=== PATIENT | female | born 1970 | race Caucasian/White ===

== ENCOUNTER 2020-04-22 08:15 | Outpatient (REF) | payer OTHER, SELFPAY ==
--- NOTE | 2020-04-22 | MM_ITS ---
EXAMINATION: MM SCREENING DIGITAL BREAST TOMOSYNTHESIS, BILATERAL CLINICAL INFORMATION: Screening. Asymptomatic. The lifetime risk of breast cancer based on the Tyrer-Cuzick Model is 8%. COMPARISON: Mammography: 03/07/2018, 01/03/2017, 01/05/2016 TECHNIQUE: Digital breast tomosynthesis is performed in both the craniocaudal and mediolateral oblique views along with computer-aided detection (CAD). Synthesized 2D images are generated from the tomosynthesis. Technologist notes technically challenging exam. Study tailored to patient capabilities particularly for the MLO views. FINDINGS: There are scattered areas of fibroglandular density (ACR BI-RADS breast composition Category b). There are no significant masses, abnormal calcifications, or other abnormalities. No developing density. No significant changes. MM/MM tomosynthesis screening BI IMPRESSION: No mammographic evidence of malignancy. ASSESSMENT: BI-RADS 1: Negative RECOMMENDATION: Routine annual mammography screening. This patient's information was entered into a reminder system with a target due date for their next mammogram.
[2020-04-22 11:05] LABS: Estimated Average Glucose 146 mg/dL; Hemoglobin A1c % 6.7 %
[2020-04-22 11:26] LABS: Alanine Aminotransferase 25 U/L (0-31); Albumin Level 3.9 g/dL (3.5-5.0); Alkaline Phosphatase 85 U/L (39-117); Aspartate Amino Transferase 12 U/L (5-31); Bilirubin Direct < 0.2 mg/dL (0.0-0.5); Bilirubin Total 0.4 mg/dL (0.0-1.0); Glucose Random 134 mg/dL (60-115); Total Protein 6.7 g/dL (6.5-8.0)
== END 2020-04-22 08:16 | disposition home or self-care (01) ==
LOC: HO.MAMMO 08:15
PROVIDERS: PCP Nurse Practitioner Family; Visit Provider Nurse Practitioner Family
DX: R73.03 Prediabetes (principal); Z71.89 Other specified counseling
CPT/HCPCS: 77063; 77067; 80076; 82947; 83036

== ENCOUNTER 2021-10-06 12:16 | Outpatient (REF) | payer MEDICAID, SELFPAY ==
--- NOTE | ~2021-10-06 | XR_ITS ---
EXAMINATION: XR FOOT, LEFT CLINICAL INFORMATION: Pain left foot COMPARISON: Radiographs left foot 11/09/2016. TECHNIQUE: AP, lateral, and oblique views of the left foot. FINDINGS: No acute or healing fracture, dislocation, destructive process. Normal bony mineralization. There are moderate posterior and plantar calcaneal spurs. Retrocalcaneal recess is preserved. Subtalar joint unremarkable. Midfoot shows no joint narrowing or erosive change. There is a borderline exostosis medial side distal second metatarsal shaft. There is a borderline hallux valgus of just over 16 degrees, stable. No significant joint narrowing MTP or interphalangeal joints. No erosive changes. XR/XR foot LT min 3V IMPRESSION: -No fracture or destructive process or erosive arthropathy. -Moderate posterior and plantar calcaneal spurs. -Borderline hallux valgus.
== END 2021-10-06 12:17 | disposition home or self-care (01) ==
LOC: HO.XRAY 12:16
PROVIDERS: PCP Internal Medicine; Visit Provider Nurse Practitioner
DX: M79.672 Pain in left foot (principal)
CPT/HCPCS: 73630

== ENCOUNTER → 2022-03-28 08:50 | Outpatient (BNVA) | payer MEDICAID, SELFPAY | PROVIDERS: PCP Internal Medicine; Visit Provider Nurse Practitioner Family | DX: Z12.11 Encounter for screening for malignant neoplasm of colon (principal); K21.9 Gastro-esophageal reflux disease without esophagitis | CPT/HCPCS: 99202 ==

== ENCOUNTER 2022-10-09 07:03 | Day surgery (SDC) | payer MEDICAID, SELFPAY ==
--- NOTE | 2022-10-05 13:16 | HO.ANESPROP2 ---
Documented by User: Etta Mcintyre NP 10/05/22 13:17 HPI - Anesthesia Eval Consult details Narrative: 52yo F for Upper Endoscopy and Colonoscopy [facility] Past Medical History Medical History (Updated 10/09/22 @ 07:10 by Marilyn Nixon, AARON) Asthma Bipolar affective disorder Chronic GERD Diabetes type 2, controlled Osteoarthritis of lower back Family History Family History (Updated 03/28/22 @ 09:36 by Carlyle Hurtado) Father HTN (hypertension) High cholesterol Paternal Uncle Heart disease Paternal Aunt Heart disease Surgical History Surgical History (Updated 10/09/22 @ 07:14 by Marilyn Nixon RN) History of repair of left rotator cuff S/P biopsy of cervix Social History Social History (Updated 03/28/22 @ 09:34 by Carlyle Hurtado) Household Members: Family Alcohol intake: current Tobacco use type: Cigarette Cigarette Packs Per Day: 0.5 Cigarettes Per Day: 10 Years Smoked: 30 Advance Directives: No Advance Directives Information Provided: Yes Meds Allergies Allergy/AdvReac Type Severity Reaction Status Date / Time cinnamon Allergy Severe Diarrhea Verified 10/03/22 14:13 Penicillins [PCN] Allergy Intermediate NAUSEA,SEVERE Verified 10/03/22 14:13 DIARRHEA, VOMITTING latex [LATEX] Allergy Unknown RASH Verified 10/03/22 14:13 amoxicillin AdvReac Unknown GI symptoms Verified 10/03/22 14:13 anything ending in cillin Allergy Unknown Unknown Uncoded 10/03/22 14:13 PICKLES Allergy Unknown RASH Uncoded 10/03/22 14:13 SEAFOOD Allergy Unknown SWELLING Uncoded 10/03/22 14:13 Home Medications Medication Instructions Recorded Confirmed Last Taken Type albuterol sulfate 90 mcg/actuation 2 puff inhalation QID PRN Wheezing 03/28/22 10/03/22 Unknown History aerosol inhaler (ProAir HFA) alcohol swabs (Alcohol Prep Pads) pad topical diabetes mellitus 03/28/22 Unknown History blood sugar diagnostic (Shanelle #10 ea 03/28/22 Unknown History Lite Strips) diclofenac sodium 1 % topical gel 2 g topical QID 03/28/22 10/03/22 Unknown History epinephrine 0.3 mg/0.3 mL 0.3 ml IM PRN Allergic Reaction 03/28/22 Unknown History injection, auto-injector hydroxyzine HCl 10 mg tablet 10 - 20 mg PO Q6H PRN anxiety 03/28/22 Unknown History ibuprofen 800 mg tablet 800 mg PO TID PRN Pain 03/28/22 10/03/22 Unknown History lancets 28 gauge (FreeStyle #100 ea 03/28/22 Unknown History Lancets) metformin 500 mg tablet 500 mg PO 03/28/22 Unknown History pantoprazole 40 mg tablet,delayed 40 mg PO QAM 03/28/22 10/03/22 Unknown History release lisinopril 5 mg tablet 5 mg PO DAILY 10/09/22 10/09/22 Unknown History loratadine 10 mg tablet 10 mg PO DAILY PRN Allergy Symptoms 10/09/22 10/09/22 Unknown History Exam Exam Date and Time: October 05, 2022 1316 Assessment and Plan Assessment Anesthesia Assessment: Chart Reviewed Documented by User: Juan Doran MD 10/09/22 07:19 [facility] Past Medical History Medical History (Updated 10/09/22 @ 07:10 by Marilyn Nixon RN) Asthma Bipolar affective disorder Chronic GERD Diabetes type 2, controlled Osteoarthritis of lower back Family History Family History (Updated 03/28/22 @ 09:36 by Carlyle Hurtado) Father HTN (hypertension) High cholesterol Paternal Uncle Heart disease Paternal Aunt Heart disease Family history of problems with anesthesia: No Surgical History Surgical History (Updated 10/09/22 @ 07:14 by Marilyn Nixon RN) History of repair of left rotator cuff S/P biopsy of cervix History of Problems with Anesthesia: No Social History Social History (Updated 03/28/22 @ 09:34 by Carlyle Hurtado) Household Members: Family Alcohol intake: current Tobacco use type: Cigarette Cigarette Packs Per Day: 0.5 Cigarettes Per Day: 10 Years Smoked: 30 Advance Directives: No Advance Directives Information Provided: Yes Meds Allergies Allergy/AdvReac Type Severity Reaction Status Date / Time cinnamon Allergy Severe Diarrhea Verified 10/03/22 14:13 Penicillins [PCN] Allergy Intermediate NAUSEA,SEVERE Verified 10/03/22 14:13 DIARRHEA, VOMITTING latex [LATEX] Allergy Unknown RASH Verified 10/03/22 14:13 amoxicillin AdvReac Unknown GI symptoms Verified 10/03/22 14:13 anything ending in cillin Allergy Unknown Unknown Uncoded 10/03/22 14:13 PICKLES Allergy Unknown RASH Uncoded 10/03/22 14:13 SEAFOOD Allergy Unknown SWELLING Uncoded 10/03/22 14:13 Home Medications Medication Instructions Recorded Confirmed Last Taken Type albuterol sulfate 90 mcg/actuation 2 puff inhalation QID PRN Wheezing 03/28/22 10/03/22 Unknown History aerosol inhaler (ProAir HFA) alcohol swabs (Alcohol Prep Pads) pad topical diabetes mellitus 03/28/22 Unknown History blood sugar diagnostic (FreeStyle #10 ea 03/28/22 Unknown History Lite Strips) diclofenac sodium 1 % topical gel 2 g topical QID 03/28/22 10/03/22 Unknown History epinephrine 0.3 mg/0.3 mL 0.3 ml IM PRN Allergic Reaction 03/28/22 Unknown History injection, auto-injector hydroxyzine HCl 10 mg tablet 10 - 20 mg PO Q6H PRN anxiety 03/28/22 Unknown History ibuprofen 800 mg tablet 800 mg PO TID PRN Pain 03/28/22 10/03/22 Unknown History lancets 28 gauge (FreeStyle #100 ea 03/28/22 Unknown History Lancets) metformin 500 mg tablet 500 mg PO 03/28/22 Unknown History pantoprazole 40 mg tablet,delayed 40 mg PO QAM 03/28/22 10/03/22 Unknown History release lisinopril 5 mg tablet 5 mg PO DAILY 10/09/22 10/09/22 Unknown History loratadine 10 mg tablet 10 mg PO DAILY PRN Allergy Symptoms 10/09/22 10/09/22 Unknown History Exam Airway Mallampati Class: II Neck ROM: Limited Heart: rrr Lungs: cta Assessment and Plan Assessment Anesthesia Assessment: Anesthesia Plan Discussed Final Anesthetic Review Family History of Problems with Anesthesia: No History of Problems with Anesthesia: No NPO: Yes ASA Class: III Final Preanesthetic Review: No Changes in Pt Med Stat, Meds/Allgs Chart Reviewed, Consent Obtained/Reviewed and Anes Risks/Benef Reviewed Patient Risk: Intermediate Procedure Risk: Intermediate Anesthetic Plan Anesthetic Plan: MAC: and Agree w/ Assess. and Plan Disposition: Standard PACU
[2022-10-09 07:14] VITALS: BMI 28.0
[2022-10-09 07:40] VITALS: BP 145/83; PULSE 66; RESP 15; TEMP 36.3; O2SAT 99
[2022-10-09] MEDS: Lactated Ringers 1,000 ML 100 ML IVCONT (07:44)
[2022-10-09 07:53] LABS: Glucose, Whole Blood 108 mg/dL (60-115)
--- NOTE | 2022-10-09 08:31 | P.HPSUR_ITS ---
Pre-Procedural Eval Section A Date of Service: 10/09/22 Section B Chief Complaint: reflux disease,screening Details of Present Illness: on chronic ibuprofen for joint pains for years Relevant Family History (Specify if Yes): No Relevant Social History: Tobacco Use Present Medications: see Short Stay Collaborative assessment Medical History: Significant History (Asthma Bipolar affective disorder Chronic GERD Diabetes type 2, controlled Osteoarthritis of lower back) History of Previous Operations: Relevant previous surgery/procedure and date(s) (History of repair of left rotator cuff Hx of shoulder surgery S/P biopsy of cervix) Allergies: Allergies Allergy/AdvReac Type Severity Reaction Status Date / Time cinnamon Allergy Severe Diarrhea Verified 10/03/22 14:13 Penicillins [PCN] Allergy Intermediate NAUSEA,SEVERE Verified 10/03/22 14:13 DIARRHEA, VOMITTING latex [LATEX] Allergy Unknown RASH Verified 10/03/22 14:13 amoxicillin AdvReac Unknown GI symptoms Verified 10/03/22 14:13 anything ending in cillin Allergy Unknown Unknown Uncoded 10/03/22 14:13 PICKLES Allergy Unknown RASH Uncoded 10/03/22 14:13 SEAFOOD Allergy Unknown SWELLING Uncoded 10/03/22 14:13 Review of Systems Sugical H&P ROS: Negative: Constitution, Cardiovascular, Respiratory, Neurological, Psychiatric, Hem-Onc, Allergic/Immunologic, Gastrointestinal, Genitourinary, Musculoskeletal, Integumentary, Endocrine and Eyes/Ears/Nose/ Throat Exam Surgical H&P Exam: Normal: HEENT, Normal: Heart, Normal: Lungs, Normal: Extremities, Normal: Abdomen, Normal: Skin and Normal: Neurological Plan Diagnosis/Plan: Unchanged I have reviewed the history and physical and performed a pertinent physical examination on my patient. No changes have occurred unless specified. Time Spent With Patient Time: Total time managing care of this patient today ____ minutes.
--- NOTE | 2022-10-09 08:32 | P.OP_ITS ---
Operative Note Operative Note Date of Service: 10/09/22 Narrative: Operative Information Procedure Description: EGD, Colonoscopy Indication: abdominal pain and screening colonoscopy Anesthesia: MAC FLEXIBLE TRANSORAL UPPER GASTROINTESTINAL ENDOSCOPY AND COLONOSCOPY PROCEDURE NOTE UPPER ENDOSCOPY Consent: Indications for the procedure and potential complications of bleeding, perforation, reaction to medications and missed diagnosis were discussed with the patient and informed consent was obtained. Instrument: Olympus GIF H 190 J mid size upper endoscope Monitoring: Vital signs and clinical assessment, continuous EKG monitoring, Pulse oximetry, Carbon Dioxide monitoring and blood pressure monitoring were done throughout the procedure. Procedure: The patient was placed in the left lateral decubitis position and pre-procedure medications were administered and a bite block was placed. The endoscope was inserted into the mouth and advanced under direct vision to the third part of duodenum. A careful inspection was made as the upper endoscope was withdrawn including a retroflexed examination of the proximal stomach; Findings and interventions are described below. Findings: Larynx:normal Esophagus: GE junction at 36 cm, diaphragm hiatus at 36 cm, schatzki ring noted with lax LES, some swelling and erythema at GEJ so bx taken from here and distal esophagus Stomach: Erythema at antrum with shallow ulcer and surrounding edema 7-8 mm. Biopsies were obtained. Grade 3 flap valve on retroflexed examination of the cardia. Duodenum: Mild erythema, bx taken Intervention: Biopsies as noted above COLONOSCOPY Instrument: Olympus variable stiffness pediatric scope 190L Colonoscopy Monitoring: Vital signs and clinical assessment, continuous EKG monitoring, Pulse oximetry, Carbon Dioxide monitoring and blood pressure monitoring were done throughout the procedure. Colon withdrawal time was 10 minutes. Procedure: The patient was placed in the left lateral decubitis position and pre-procedure medications were administered. After a digital rectal examination of the ano-rectum, the video colonoscope was inserted into the rectum and advanced through the colon to the cecum/TI. The colonoscope was slowly withdrawn in a retrograde panoramic fashion and the colon mucosa was carefully examined including a retroflexed view of the rectum. Findings and interventions are described below. Procedure Difficulty: moderate, pressure applied Findings: Terminal Ileum-normal Cecum:normal Ascending Colon: normal Transverse Colon -normal Descending Colon:normal Sigmoid Colon: normal Rectum: Retroflexion with small internal hemorrhoids, grade II Anorectum - normal Colon preparation: [place] Bowel Preparation Scale Right colon; 3 Transverse colon: 2 Left colon; 3 (0 = Unprepared colon segment with mucosa not seen due to solid stool that cannot be cleared. 1 = Portion of mucosa of the colon segment seen, but other areas of the colon segment not well seen due to staining, residual stool and/or opaque liquid. 2 = Minor amount of residual staining, small fragments of stool and/or opaque liquid, but mucosa of colon segment seen well. 3 = Entire mucosa of colon segment seen well with no residual staining, small fragments of stool or opaque liquid) Impression and Post Procedure Diagnosis: Endoscopy Findings: schatzki ring gastric ulcer duodenitis lax LES Colonoscopy Findings: internal hemorrhoids Plan: Await Pathology results Repeat Colonoscopy in 10 years or earlier if clinically indicated High fiber diet leaflet avoid straining at stool, epsom salts and sitz bath, anusol supps or cream smoking cessation, consider alternatives to NSAId e.g tylenol or celebrex, arthrotec Above findings were reviewed with the patient and relevant handouts were provided if indicated.
[2022-10-09 09:13] VITALS: BP 109/64; PULSE 65; RESP 16; TEMP 36.6; O2SAT 98
[2022-10-09 09:28] VITALS: BP 150/78; PULSE 58; RESP 16; O2SAT 100
[2022-10-09 09:43] VITALS: BP 133/70; PULSE 55; RESP 18; TEMP 36.6; O2SAT 99
== END 2022-10-09 10:17 | disposition home or self-care (01) ==
PROVIDERS: PCP Internal Medicine; Visit Provider Internal Medicine Gastroenterology
PROC: (CPT 45378; principal; 2022-10-09 08:30)
DX: Z12.11 Encounter for screening for malignant neoplasm of colon (principal); K64.1 Second degree hemorrhoids; K21.9 Gastro-esophageal reflux disease without esophagitis; R10.9 Unspecified abdominal pain; K25.9 Gastric ulcer, unspecified as acute or chronic, without hemorrhage or perforation; K22.2 Esophageal obstruction; K22.4 Dyskinesia of esophagus; K29.80 Duodenitis without bleeding; K44.9 Diaphragmatic hernia without obstruction or gangrene; E11.9 Type 2 diabetes mellitus without complications; M47.896 Other spondylosis, lumbar region; M15.9 Polyosteoarthritis, unspecified; J45.909 Unspecified asthma, uncomplicated; F31.89 Other bipolar disorder; Z79.899 Other long term (current) drug therapy; Z79.84 Long term (current) use of oral hypoglycemic drugs; Z79.1 Long term (current) use of non-steroidal anti-inflammatories (NSAID); Z88.0 Allergy status to penicillin; Z88.1 Allergy status to other antibiotic agents; Z91.040 Latex allergy status; F17.210 Nicotine dependence, cigarettes, uncomplicated
CPT/HCPCS: 45378; 43239; 82947; 88305; 88342

== ENCOUNTER 2022-10-23 13:26 | Outpatient (REF) | payer MEDICAID, SELFPAY ==
[2022-10-25 09:19] LABS: Transglutaminase Ab IgG <1.0 U/mL; Transglutaminase IgA <1.0 U/mL
== END 2022-10-23 13:27 | disposition home or self-care (01) ==
LOC: CF 13:26
PROVIDERS: PCP Internal Medicine; Visit Provider Nurse Practitioner Family
DX: R10.9 Unspecified abdominal pain (principal); K29.80 Duodenitis without bleeding; K21.9 Gastro-esophageal reflux disease without esophagitis
CPT/HCPCS: 36415; 86003; 86364; 99212

== ENCOUNTER 2023-04-30 13:36 | Outpatient (AMB) | payer MEDICAID, SELFPAY ==
[2023-04-30 13:44] VITALS: BP 118/81; PULSE 92; BMI 29.6
--- NOTE | 2023-04-30 13:44 | MHC.OFFVIS ---
Intake Vital Signs 04/30/23 13:44 Height 5 ft 1 in Weight 156 lb 8.451 oz BMI 29.6 BP 118/81 Blood Pressure Location Lt brachial Position Sitting Pulse 92 Intake Visit Reasons: 6 mnth f/u Intake Note: Blanca presents in the office as a 6 month follow up. CC: She states that she needs refill on Carafate medication. Footwear Sales Associate Required: No Allergies latex [LATEX] Allergy (Unknown, Verified 04/30/23 13:47) Rash seafood Allergy (Verified 04/30/23 13:47) Swelling cinnamon Adverse Reaction (Severe, Verified 04/30/23 13:47) Diarrhea Penicillins [PCN] Adverse Reaction (Severe, Verified 04/30/23 13:47) nausea, severe diarrhea, vomiting amoxicillin Adverse Reaction (Unknown, Verified 04/30/23 13:47) GI symptoms anything ending in cillin Allergy (Unknown, Uncoded 04/30/23 13:47) Unknown PICKLES Allergy (Unknown, Uncoded 04/30/23 13:47) Rash HPI 6 mnth f/u HPI Details LAST VISIT Duodenitis Diagnosed with duodenitis on upper endoscopy. Patient can start taking sucralfate. Discussed with patient avoiding dietary triggers. Encourage patient to stop taking ibuprofen and tried other pain medication. Patient will talk to her PCP GERD (gastroesophageal reflux disease) Discussed with patient avoiding dietary triggers and that is not crit upper endoscopy results discussed with patient. Patient will try to talk to her PCP about changing ibuprofen to Celebrex or Arthrotec. Will do RAST allergen test and check transglutaminase. Will put patient on sucralfate at bedtime. She can continue pantoprazole. I will see patient in 6 months, sooner on as needed basis. Patient is agreeable to this plan and verbalizes understanding of instructions. She was given the opportunity to ask questions and all questions answered. ? Thank you for allowing me to participate in her care Plan Orders Orders Rast Allergen Today K21.9 - Gastro-esophageal reflux disease without esophagitis Transglutaminase IgA Today R10.9 - Unspecified abdominal pain Transglutaminase Ab IgG Today R10.9 - Unspecified abdominal pain Medications New sucralfate 1 g PO BEDTIME 30 tabs 1RF R19.7 - Diarrhea, unspecified Discontinued famotidine (Pepcid) Discontinued Reason: Doctor's Order 20 mg PO BEDTIME 30 tabs 3RF K21.9 - Gastro-esophageal reflux disease without esophagitis TODAY'S VISIT: Patient is here today for follow-up. Patient states that she ran out of sucralfate. Reports that she has been feeling better, however she continues to have epigastric discomfort occasionally. Patient denies eating late at night. Patient is avoiding food that is spicy or fried. Patient reports that she is allergic to multiple different food and would like to see software tools engineer. Rest allergen test shows allergy to shrimp, however this is not a true allergy test. Patient was diagnosed with duodenitis on endoscopy in September. Patient was on pantoprazole, however states that it was not working for her very well. Patient also ran out of the medication. Patient denies any dyspepsia, dysphagia or odynophagia. Denies any melena, hematochezia, unintentional weight loss or ribbon like stools. [facility] Medical History Duodenitis HTN (hypertension) Diabetes type 2, controlled Bipolar affective disorder Asthma Chronic GERD Osteoarthritis of lower back Surgical History History of esophagogastroduodenoscopy (EGD) Hx of colonoscopy S/P biopsy of cervix History of repair of left rotator cuff Family History Father HTN (hypertension) High cholesterol Paternal Uncle Heart disease Paternal Aunt Heart disease Social History Household Members: Family Alcohol intake: current Alcohol intake frequency: holidays/special occasions only Patient Tobacco Use Status: Current everyday Tobacco user Tobacco use type: Cigarette Cigarette Packs Per Day: 0.5 Cigarettes Per Day: 5 Years Smoked: 30 Review of Systems Const Denies weight gain and Denies weight loss ENT Reports no additional complaints, Denies dysphagia and Denies odynophagia Card Reports no additional complaints Resp Reports no additional complaints GI Denies abdominal pain, Denies belching, Denies melena, Denies bloating, Denies change in bowel habits, Denies dysphagia, Denies excessive flatus, Reports dyspepsia, Reports heartburn, Denies diarrhea, Denies loose stools, Denies nausea, Denies odynophagia and Denies vomiting Reports no additional complaints Musc Reports no additional complaints Neuro Reports no additional complaints Psych Reports no additional complaints Endo Reports no additional complaints Physical Exam Vital Signs: Last Vital Signs Pulse 92 04/30/23 13:44 BP 118/81 04/30/23 13:44 BMI result Body Mass Index 29.6 Const General: healthy appearing, no acute distress and well developed Nutritional Appearance: well nourished Orientation/consciousness: patient oriented x3 HEENT Head: Yes normal to inspection, Yes normocephalic and Yes atraumatic Face and sinus: Yes normal facial exam Mouth: Normal oral and palatal mucosa present Throat: Yes posterior oropharynx normal, Yes tonsils normal and Yes uvula midline Eyes General: appearance normal, both eyes and all related structures Neck Neck: Yes normal visual inspection, Yes full ROM and Yes trachea midline Thyroid: Thyroid normal Resp Effort & Inspection: normal respiratory effort, able to speak in complete sentences, no tracheal deviation and symmetric chest movement Auscultation: clear to auscultation bilaterally Cardio Rate: regular rate GI Inspection: Yes normal to inspection and No distended Palpation (GI): Soft to palpation, not firm, nontender and No hepatosplenomegaly present Auscultation: normal bowel sounds General: Yes no CVA tenderness Back/Spine/Pelvis Back: no CVA tenderness Skin General skin exam: elasticity normal, turgor normal and dry skin Neuro General: patient oriented x3 Psych Appearance: grossly normal Mental Status: mental status grossly normal Affect: normal affect Results Reviewed Results Reviewed: Laboratory Tests 10/23/22 14:36 Tiss Transglutamin IgG <1.0 Tiss Transglutamin IgA <1.0 Assessment & Plan Assessment & Plan (1) Multiple food allergies: Code(s): Z91.018 - Allergy to other foods (2) Duodenitis: Code(s): K29.80 - Duodenitis without bleeding (3) GERD (gastroesophageal reflux disease): Code(s): K21.9 - Gastro-esophageal reflux disease without esophagitis Qualifiers: Esophagitis presence: esophagitis presence not specified Qualified Code(s): K21.9 - Gastro-esophageal reflux disease without esophagitis Plan Referral sent to software tools engineer. Patient will continue avoiding food that she thinks she is allergic or has sensitivities. Will start patient on Nexium every morning. Patient can continue sucralfate. Continue avoiding NSAIDs. Continue avoiding dietary triggers in late night snacking. I will see patient in 6 months, sooner on as needed basis. Patient will call the office if she will have any GI concerning symptoms. She is agreeable to this plan and verbalizes understanding of instructions. She was given the opportunity to ask questions and all questions answered. Thank you for allowing me to participate in her care Orders: Referrals Allergy & Immunology Referral Z91.018 - Allergy to other foods Medications: New esomeprazole magnesium (Nexium) 40 mg PO DAILY 30 caps 5RF K21.9 - Gastro-esophageal reflux disease without esophagitis Coding Level of Care Code Est Pt Level 3 (02634) Diagnoses Multiple food allergies Z91.018 Duodenitis K29.80 Gastroesophageal reflux disease, unspecified whether esophagitis present K21.9 Esophagitis presence: esophagitis presence not specified Time Spent (min) 30 Comment 20 minutes spent with patient and additional 10 minutes spent reviewing her records
== END 2023-04-30 14:31 | disposition home or self-care (01) ==
PROVIDERS: PCP Internal Medicine; Visit Provider Nurse Practitioner Family
DX: Z91.018 Allergy to other foods (principal); K29.80 Duodenitis without bleeding; K21.9 Gastro-esophageal reflux disease without esophagitis
CPT/HCPCS: 99213

== ENCOUNTER → 2023-04-30 13:36 | Outpatient (BNVA) | payer MEDICAID, SELFPAY | PROVIDERS: PCP Internal Medicine; Visit Provider Nurse Practitioner Family | DX: Z91.018 Allergy to other foods (principal); K29.80 Duodenitis without bleeding; K21.9 Gastro-esophageal reflux disease without esophagitis | CPT/HCPCS: 99212 ==

== ENCOUNTER 2023-06-24 19:10 | Emergency (ER) | payer MEDICAID, SELFPAY ==
--- NOTE | ~2023-06-24 | XR_ITS ---
EXAMINATION: CHEST 2 VIEWS CLINICAL INFORMATION: cough. COMPARISON: 09/28/2015. TECHNIQUE: PA and lateral views of the chest obtained. FINDINGS: The lungs are well expanded. No focal infiltrate, effusion, edema, or pneumothorax. Cardiac and mediastinal silhouettes are within normal limits for technique. No acute bony abnormality seen XR/XR chest 2V IMPRESSION: No evidence of acute disease
[2023-06-24 19:11] VITALS: BP 149/83; PULSE 75; RESP 18; TEMP 37.1; O2SAT 99; BMI 28.3
--- NOTE | 2023-06-24 19:13 | ED_ITS ---
HPI - General Adult General Chief complaint: Upper Respiratory Symptoms Stated complaint: asthma Source: patient Mode of arrival: ambulatory Limitations: no limitations History of Present Illness HPI narrative: Patient is a 52 year old assigned female at with no reported medical history presenting to the emergency department today with body aches and a cough. Patient states that she has had a cough for months but now she is also having body aches. Patient denies any dizziness, lightheadedness, abdominal pain, nausea, vomiting, fever, chills, blurry vision, double vision, loss of vision, chest pain, difficulty breathing, shortness of breath, back pain, night sweats, pain with urination, increased urinary frequency, increased urinary urgency, blood in her urine or stool, syncope or a near syncopal episode, recent trauma or falls, bowel incontinence, bladder incontinence, bowel retention, bladder retention, or any other complaints at this time. Onset (ago): month(s) Severity: mild Relieving factors: none Exacerbating factors: none Associated symptoms: cough Treatments prior to arrival: none Related Data Home Medications Medication Instructions Recorded Confirmed albuterol sulfate 90 mcg/actuation 2 puff inhalation QID PRN Wheezing 03/28/22 10/03/22 aerosol inhaler (ProAir HFA) alcohol swabs (Alcohol Prep Pads) pad topical diabetes mellitus 03/28/22 blood sugar diagnostic (FreeStyle #10 ea 03/28/22 Lite Strips) diclofenac sodium 1 % topical gel 2 g topical QID 03/28/22 10/03/22 epinephrine 0.3 mg/0.3 mL 0.3 ml IM PRN Allergic Reaction 03/28/22 injection, auto-injector hydroxyzine HCl 10 mg tablet 10 - 20 mg PO Q6H PRN anxiety 03/28/22 ibuprofen 800 mg tablet 800 mg PO TID PRN Pain 03/28/22 10/03/22 lancets 28 gauge (FreeStyle #100 ea 03/28/22 Lancets) loratadine 10 mg tablet 10 mg PO DAILY PRN Allergy Symptoms 10/09/22 10/09/22 amlodipine 2.5 mg tablet 2.5 mg PO BID 04/30/23 docusate sodium 100 mg capsule 100 mg PO BID 04/30/23 lisinopril 10 mg tablet 10 mg PO DAILY 04/30/23 melatonin 3 mg tablet 3 mg PO BEDTIME 04/30/23 metformin 500 mg tablet,extended 500 mg PO DAILY 04/30/23 release 24 hr quetiapine 25 mg tablet 25 mg PO DAILY 04/30/23 Previous Rx's Medication Instructions Recorded esomeprazole magnesium 40 mg 40 mg PO DAILY #30 caps 04/30/23 capsule,delayed release (Nexium) sucralfate 1 gram tablet 1 g PO BEDTIME #30 tabs 04/30/23 Allergies Allergy/AdvReac Type Severity Reaction Status Date / Time latex [LATEX] Allergy Unknown Rash Verified 06/24/23 19:15 seafood Allergy Swelling Verified 06/24/23 19:15 cinnamon AdvReac Severe Diarrhea Verified 06/24/23 19:15 Penicillins [PCN] AdvReac Severe nausea, Verified 06/24/23 19:15 severe diarrhea, vomiting amoxicillin AdvReac Unknown GI symptoms Verified 06/24/23 19:15 anything ending in cillin Allergy Unknown Unknown Uncoded 04/30/23 13:47 PICKLES Allergy Unknown Rash Uncoded 04/30/23 13:47 Review of Systems Constitutional: Constitutional: Reports no additional constitutional complaints, Reports body ache(s), Denies chills, Denies fever(s) and Denies night sweats Eyes: Eyes: Reports no additional eye complaints, Denies blurry vision, Denies change in vision, Denies diplopia, Denies eye discharge, Denies loss of vision and Denies eye pain ENT: Denies dizziness Cardiovascular: Cardiovascular: Reports no additional cardiovascular complaints, Denies chest pain, Denies lightheadedness, Denies Loss of Consciousness and Denies dyspnea Respiratory: Respiratory: Reports no additional respiratory complaints, Reports cough and Denies dyspnea Gastrointestinal: Gastrointestinal: Reports no additional gastrointestinal complaints, Denies abdominal pain, Denies melena, Denies hematochezia, Denies change in bowel habits and Denies change in stool character Genitourinary: Genitourinary: Denies hematuria, Denies urinary frequency, Denies dysuria, Denies urinary incontinence, Denies urinary hesitancy and Denies urinary urgency Musculoskeletal: Musculoskeletal: Reports no additional musculoskeletal complaints, Denies numbness and Denies tingling Neurologic: Denies dizziness, Denies loss of vision, Denies numbness and Denies tingling Psychiatric: Psychiatric: Reports no additional psychiatric complaints Endocrine: Endocrine: Reports no additional endocrine complaints Hematologic/Lymphatic: Hematologic/Lymphatic: Reports no additional hematologic/lymphatic complaints Allergic/Immunologic: Allergic/Immunologic: Reports no additional allergic/immunologic complaints [facility] Past Medical History Attestation statement: The following information was validated with the patient. Source: old records reviewed and nursing notes reviewed Medical History Duodenitis HTN (hypertension) Diabetes type 2, controlled Bipolar affective disorder Asthma Chronic GERD Osteoarthritis of lower back Surgical History History of esophagogastroduodenoscopy (EGD) Hx of colonoscopy S/P biopsy of cervix History of repair of left rotator cuff Family History Family History Father HTN (hypertension) High cholesterol Paternal Uncle Heart disease Paternal Aunt Heart disease Social History Social History Household Members: Family Alcohol intake: current Alcohol intake frequency: holidays/special occasions only Patient Tobacco Use Status: Current everyday Tobacco user Tobacco use type: Cigarette Cigarette Packs Per Day: 0.5 Cigarettes Per Day: 5 Years Smoked: 30 Advance Directives: No Advance Directives Information Provided: No Physical Exam ED Vital Signs: Vital Signs - 24 hr 06/24/23 19:11 Temperature 98.8 F Pulse Rate 75 Respiratory Rate 18 Blood Pressure 149/83 H Pulse Oximetry 99 Oxygen Delivery Method Room Air BMI result Body Mass Index 28.3 Const General: cooperative, no acute distress, alert and awake Nutritional Appearance: well nourished Orientation/consciousness: patient oriented x3 Limitations: no limitations [facility] Head: Yes normal to inspection and Yes atraumatic Ears: hearing grossly normal bilaterally and external ears normal General nose exam: Normal external nose present, no nasal discharge noted and no epistaxis Face and sinus: Yes normal facial exam, No abrasion and No laceration Mouth: Normal oral and palatal mucosa present, no drooling and no muffled voice Eyes General: appearance normal, both eyes and all related structures Periorbital: periorbital findings normal Eyelids: Yes eyelids normal Conjunctivae: conjunctivae normal Pupils: Equal, round and reactive pupils present EOM: EOMs intact bilaterally Neck Neck: Yes normal visual inspection, Yes full ROM and Yes no lymphadenopathy Chest Chest palpation & inspection: normal inspection of the chest Resp Effort & Inspection: normal respiratory effort and able to speak in complete sentences GI Inspection: Yes normal to inspection Neuro General: patient oriented x3 and moves all extremities Cranial nerves: Yes Equal, round and reactive pupils present Cognition (Neuro): normal cognition Motor exam (neuro): 5/5 motor strength present throughout Sensory Exam: Normal double simultaneous stimulation for sensation Coordination: [id number] test normal Extrem General: Yes normal to inspection, Yes full ROM and Yes capillary refill normal Psych Appearance: grossly normal Mental Status: mental status grossly normal Affect: normal affect Attitude: cooperative Thought process: Normal thought process present Thought content: Normal thought content present Insight: Good insight present (Psych) Course Course Course Narrative: RME performed by Ines Mckinley PA-C. Patient is a 52 year old assigned female at presenting to the emergency department with body aches and a cough. Detailed physical exam and review of systems are deferred to the grout worker. Imaging and swabs ordered. Patient placed back in the waiting room pending room availability and results. Medical Decision Making Medical Decision Making [facility] Narrative: Patient is a 52 year old assigned female at with no reported medical history presenting to the emergency department today with a cough and body aches. Patient's limited physical exam performed in triage was unremarkable. Patient's COVID-19 and influenza tests were negative. Patient's chest x-ray show ed no acute process. Patient left the department before myself or any of the other emergency department clinicians could review or explain physical exam findings, test results, need or lack there of for additional testing, treatment options or a treatment plan. Differential Diagnosis Differential Diagnoses: The differential diagnosis associated with the presentation includes COVID-19 URI Influenza Admission/Observation Consideration of admission/observation: Escalation of care including admission/observation considered Patient would have been admitted to the hospital had her work up had any findings where hospital admission was appropriate, her clinical presentation warranted hospital admission, and she hadn't left the department. Lab Data [facility] Lab Attestation statement: I reviewed the patient's lab results. Labs: Lab Results 06/24/23 Range/Units 20:33 Influenza Type A (PCR) NEGATIVE (Negative) Influenza Type B (PCR) NEGATIVE (Negative) RSV RNA Qual (PCR) NEGATIVE (Negative) SARS-CoV-2 RNA (RT-PCR) NEGATIVE (Negative) Independent Interpretation I performed an independent interpretation of an: Plain X-Ray Interpretation: My interpretation is in agreement with the radiologist's impression of this imaging study. EXAMINATION: CHEST 2 VIEWS CLINICAL INFORMATION: cough. COMPARISON: 09/28/2015. TECHNIQUE: PA and lateral views of the chest obtained. FINDINGS: The lungs are well expanded. No focal infiltrate, effusion, edema, or pneumothorax. Cardiac and mediastinal silhouettes are within normal limits for technique. No acute bony abnormality seen XR/XR chest 2V IMPRESSION: No evidence of acute disease Dictated By: Ethan Dominique MD Signed By: Electronically signed by Ethan Dominique MD 06/24/232017 Radiology Impression Discussion of test interpretation with radiology: I have reviewed the radiologist's reading. Discharge Plan Discharge Clinical Impression: Upper respiratory infection Patient Disposition: Left W/O Completing Treatment Prescriptions: No Action sucralfate 1 gram tablet 1 g PO BEDTIME Qty: 30 2RF loratadine 10 mg tablet 10 mg PO DAILY PRN (Reason: Allergy Symptoms) ibuprofen 800 mg tablet 800 mg PO TID PRN (Reason: Pain) alcohol swabs [Alcohol Prep Pads] Pads, Medicated topical (DME) FreeStyle Lite Strips Strip See Rx Instructions .ROUTE QID Qty: 10 Rx Instructions: As directed hydroxyzine HCl 10 mg tablet 10 - 20 mg PO Q6H PRN (Reason: anxiety) (DME) lancets [FreeStyle Lancets] 28 gauge misc See Rx Instructions .ROUTE QID Qty: 100 Rx Instructions: As directed diclofenac sodium 1 % gel 2 g topical QID epinephrine 0.3 mg/0.3 mL auto-injector 0.3 ml IM PRN (Reason: Allergic Reaction) albuterol sulfate [ProAir HFA] 90 mcg/actuation HFA aerosol inhaler 2 puff inhalation QID PRN (Reason: Wheezing) metformin 500 mg tablet extended release 24 hr 500 mg PO DAILY melatonin 3 mg tablet 3 mg PO BEDTIME lisinopril 10 mg tablet 10 mg PO DAILY quetiapine 25 mg tablet 25 mg PO DAILY docusate sodium 100 mg capsule 100 mg PO BID amlodipine 2.5 mg tablet 2.5 mg PO BID esomeprazole magnesium [Nexium] 40 mg capsule,delayed release(DR/EC) 40 mg PO DAILY Qty: 30 5RF Discharge Date/Time: 06/24/23 22:46
[2023-06-24 21:14] LABS: Influenza A PCR NEGATIVE (Negative); Influenza B PCR NEGATIVE (Negative); Resp Syncy Virus RNA Qual PCR NEGATIVE (Negative); SARS COV2 PCR INHOUSE NEGATIVE (Negative)
== END 2023-06-24 22:46 | disposition left against medical advice (07) ==
PROVIDERS: Physician Assistant Medical; Emergency Provider Emergency Medicine; PCP Internal Medicine
DX: J06.9 Acute upper respiratory infection, unspecified (principal); R05.9 Cough, unspecified; Z20.822 Contact with and (suspected) exposure to COVID-19; Z20.828 Contact with and (suspected) exposure to other viral communicable diseases; Z79.899 Other long term (current) drug therapy
CPT/HCPCS: 0241U; 71046; 99281; 99283

== ENCOUNTER 2023-10-23 13:08 | Outpatient (AMB) | payer MEDICAID, SELFPAY ==
--- NOTE | 2023-10-23 13:19 | MHC.OFFVIS ---
Vital Signs 10/23/23 13:27 Height 5 ft 1 in Weight 161 lb 6.054 oz BMI 30.5 BP 102/66 Blood Pressure Location Rt brachial Position Sitting Pulse 70 Pulse Source Pulse Oximeter Pulse Oximetry (%) 98 Oxygen Delivery Method Room Air Intake Visit Reasons: 6 month follow up Intake Note: Blanca presents in office today for a scheduled 6 mos FUV. CC; Blanca was rx'd Nexium at her last visit. She is here today to discuss sx and progress. Pt states that the Nexium has been working well for her. However, she ran out of Nexium back in July of 2023 and has not been able to reach the office to get a refill processed since. Pt denies any additional concerns or sx at this time. Farm Manager Required: No Allergies latex [LATEX] Allergy (Unknown, Verified 10/23/23 13:24) Rash seafood Allergy (Verified 10/23/23 13:24) Swelling cinnamon Adverse Reaction (Severe, Verified 10/23/23 13:24) Diarrhea Penicillins [PCN] Adverse Reaction (Severe, Verified 10/23/23 13:24) nausea, severe diarrhea, vomiting amoxicillin Adverse Reaction (Unknown, Verified 10/23/23 13:24) GI symptoms anything ending in cillin Allergy (Unknown, Uncoded 04/30/23 13:47) Unknown PICKLES Allergy (Unknown, Uncoded 04/30/23 13:47) Rash HPI HPI 6 month follow up: Details: LAST VISIT 04/30/23 Multiple food allergies Duodenitis GERD (gastroesophageal reflux disease) Plan Referral sent to electroneurodiagnostic technician. Patient will continue avoiding food that she thinks she is allergic or has sensitivities. Will start patient on Nexium every morning. Patient can continue sucralfate. Continue avoiding NSAIDs. Continue avoiding dietary triggers in late night snacking. I will see patient in 6 months, sooner on as needed basis. Patient will call the office if she will have any GI concerning symptoms. She is agreeable to this plan and verbalizes understanding of instructions. She was given the opportunity to ask questions and all questions answered. ? Thank you for allowing me to participate in her care Orders Referrals Allergy & Immunology Referral Z91.018 Medications New esomeprazole magnesium (Nexium) 40 mg PO DAILY 30 caps 5RF K21.9 TODAY'S VISIT Patient is here today for follow-up. Patient reports that she ran out of Nexium end of July and has been purchasing [id number] medication. Patient reports that Nexium was helpful. Currently patient reports that she starting to have acid reflux. States that she has been feeling full after eating small meals. Patient also reports that she is unable to lose weight. Patient states that she does not eat big meals and she eats only couple times a day. Patient reports that she moves her bowels daily, however she does not feel like she empties her bowels completely. Patient denies any melena, hematochezia. Patient denies any abdominal pain or discomfort. Patient denies any nausea or vomiting. Denies any other GI concerning symptoms. [facility] Medical History Duodenitis HTN (hypertension) Diabetes type 2, controlled Bipolar affective disorder Asthma Chronic GERD Osteoarthritis of lower back Surgical History History of esophagogastroduodenoscopy (EGD) Hx of colonoscopy S/P biopsy of cervix History of repair of left rotator cuff Family History Father HTN (hypertension) High cholesterol Paternal Uncle Heart disease Paternal Aunt Heart disease Social History Household Members: Family Alcohol intake: current Alcohol intake frequency: holidays/special occasions only Patient Tobacco Use Status: Current everyday Tobacco user Tobacco use type: Cigarette Cigarette Packs Per Day: 0.5 Cigarettes Per Day: 5 Years Smoked: 30 Review of Systems Const Denies weight gain and Denies weight loss ENT Reports no additional complaints, Denies dysphagia and Denies odynophagia Card Reports no additional complaints Resp Reports no additional complaints GI Denies abdominal pain, Denies belching, Denies melena, Denies bloating, Reports constipation, Denies dysphagia, Denies excessive flatus, Reports early satiety, Denies dyspepsia, Reports heartburn, Denies diarrhea, Denies loose stools, Denies nausea, Denies odynophagia and Denies vomiting Reports no additional complaints Musc Reports no additional complaints Neuro Reports no additional complaints Psych Reports no additional complaints Endo Reports no additional complaints Physical Exam Vital Signs: Last Vital Signs Pulse 70 10/23/23 13:27 BP 102/66 10/23/23 13:27 Pulse Ox 98 10/23/23 13:27 Oxygen Delivery Method Room Air 10/23/23 13:27 BMI result Body Mass Index 30.5 Const General: healthy appearing and no acute distress Nutritional Appearance: obese Orientation/consciousness: patient oriented x3 Resp Effort & Inspection: normal respiratory effort, able to speak in complete sentences, no tracheal deviation and symmetric chest movement Auscultation: clear to auscultation bilaterally Cardio Rate: regular rate GI Inspection: Yes normal to inspection, No distended and Yes obesity Palpation (GI): Soft to palpation, not firm, nontender and No hepatosplenomegaly present Auscultation: normal bowel sounds General: Yes no CVA tenderness Back/Spine/Pelvis Back: no CVA tenderness Skin General skin exam: elasticity normal, turgor normal and dry skin Neuro General: patient oriented x3 Psych Appearance: grossly normal Mental Status: mental status grossly normal Assessment & Plan Assessment & Plan (1) Duodenitis: Code(s): K29.80 - Duodenitis without bleeding Category: Medical (2) Multiple food allergies: Code(s): Z91.018 - Allergy to other foods (3) GERD (gastroesophageal reflux disease): Code(s): K21.9 - Gastro-esophageal reflux disease without esophagitis Qualifiers: Esophagitis presence: esophagitis presence not specified Qualified Code(s): K21.9 - Gastro-esophageal reflux disease without esophagitis (4) Constipation: Code(s): K59.00 - Constipation, unspecified Qualifiers: Constipation type: slow transit constipation Qualified Code(s): K59.01 - Slow transit constipation (5) Early satiety: Code(s): R68.81 - Early satiety Plan Continue Nexium and sucralfate. Patient will start taking senna daily. Increase fluid intake and activity to promote better bowel motility. Continue avoiding dietary triggers and late night snacking. Staying upright for minimum 3 hours after meals discussed with patient. Patient will be sent for gastric emptying study. Patient admits that she frequently feels like she gets full very quickly. Patient will return in 3 months. Please send referral to different allergy group. Patient was never called. Patient was instructed to call herself in about 2-3 weeks. Patient will call the office if she will continue to have GI concerning symptoms. She is agreeable to this plan and verbalizes understanding of instructions. She was given the opportunity to ask questions and all questions answered. Thank you for allowing me to participate in her care Orders: Orders NM gastric emptying study 10/23/23 R68.81 - Early satiety Medications: New sennosides (Natural Senna Laxative) 17.2 mg (2 x 8.6 mg) PO BEDTIME 60 tabs 3RF constipation K59.00 - Constipation, unspecified Refilled sucralfate 1 g PO BEDTIME 30 tabs 4RF R19.7 - Diarrhea, unspecified Coding Level of Care Code Est Pt Level 4 (56808) Diagnoses Duodenitis K29.80 Multiple food allergies Z91.018 Gastroesophageal reflux disease, unspecified whether esophagitis present K21.9 Esophagitis presence: esophagitis presence not specified Slow transit constipation K59.01 Constipation type: slow transit constipation Early satiety R68.81 Time Spent (min) 35 Comment 20 minutes spent with patient and additional 15 minutes spent reviewing her records
[2023-10-23 13:27] VITALS: BP 102/66; PULSE 70; O2SAT 98; BMI 30.5
== END 2023-10-23 13:51 | disposition home or self-care (01) ==
PROVIDERS: PCP Internal Medicine; Visit Provider Nurse Practitioner Family
DX: K29.80 Duodenitis without bleeding (principal); Z91.018 Allergy to other foods; K21.9 Gastro-esophageal reflux disease without esophagitis; K59.01 Slow transit constipation; R68.81 Early satiety
CPT/HCPCS: 99214

== ENCOUNTER → 2023-10-23 13:08 | Outpatient (BNVA) | payer MEDICAID, SELFPAY | PROVIDERS: PCP Internal Medicine; Visit Provider Nurse Practitioner Family | DX: K29.80 Duodenitis without bleeding (principal); K21.9 Gastro-esophageal reflux disease without esophagitis; K59.01 Slow transit constipation; R68.81 Early satiety; Z91.018 Allergy to other foods | CPT/HCPCS: 99212 ==

== ENCOUNTER → 2023-12-05 07:52 | Outpatient (REF) | payer MEDICAID, SELFPAY ==
--- NOTE | ~2023-12-05 | NM_ITS ---
EXAMINATION: CA RADIONUCLIDE SOLID FOOD GASTRIC EMPTYING 4-HOUR STUDY CLINICAL INFORMATION: Early satiety. GERD. COMPARISON: None TECHNIQUE: A standard meal consisting of 4 oz of Egg Beaters brand tagged with 740 microcuries Tc-99m Sulfur Colloid, 8 oz water and 2 slices of toast with jelly was administered orally to the patient. Images were obtained using a dual head gamma camera in the anterior and posterior projections over of the stomach immediately post ingestion and at hourly intervals up to 4 hours post ingestion. The anterior and posterior counts at each time interval were averaged using the geometric mean and expressed as percentage of the immediate post ingestion counts. FINDINGS: There is good visualization of activity in the stomach immediately post ingestion. As the study progresses, there is good clearance of activity from the stomach and visualization of progressively increasing small bowel activity. By the end of the study, there is mild retention noted in the stomach. Retention in the stomach at each time interval was: 1 hour 79% (normal 37%-90%) 2 hours 58% (normal 30%-60%) 3 hours 29% 4 hours 15% (normal 0%-10%) CA/CA gastric emptying study IMPRESSION: Mildly delayed (grade 1) 4-hour solid food gastric emptying study. For solid meal, rapid gastric emptying is less than 30% at 60 minutes. Delayed gastric emptying criteria is more than 60% remaining at 120 minutes or more than 10% at 240 minutes. The 4-hour value is the best discriminator of a normal or abnormal result). Gastric emptying study grading per JNMT Consensus Recommendations in 2008 (https://tech.snmjournals.org/content/36/1/44) Grade 1 (mild retention): 11-20% at 4h Grade 2 (moderate retention): 21-35% at 4h Grade 3 (severe retention): 36-50% at 4h Grade 4 (very severe retention): >50% retention at 4h
== END ==
LOC: HO.NUCMED 07:52
PROVIDERS: PCP Internal Medicine; Visit Provider Nurse Practitioner Family
DX: R68.81 Early satiety (principal)
CPT/HCPCS: 78264; A9541

== ENCOUNTER 2024-02-05 12:56 | Outpatient (AMB) | payer MEDICAID, SELFPAY ==
[2024-02-05 13:08] VITALS: BP 140/68; PULSE 72; O2SAT 97; BMI 31.2
--- NOTE | 2024-02-05 13:08 | MHC.OFFVIS ---
Vital Signs 02/05/24 13:08 Height 5 ft 1 in Weight 164 lb 14.492 oz BMI 31.2 BP 140/68 H Blood Pressure Location Rt brachial Position Sitting Pulse 72 Pulse Source Pulse Oximeter Pulse Oximetry (%) 97 Oxygen Delivery Method Room Air Intake Visit Reasons: 3 month f/u GES, Allergy referral Intake Note: Blanca presents in office today for a scheduled 3 mos FUV. CC; Pt had nuclear study performed on 12/04. Pt was rx'd senna and sucralfate at their last visit. Pt reports that they have remained stable since their last visit. However, pt is still experiencing intermittent epigastric pain. Pt states that they notice this most if they attempt to have any take out. Pt reports that they are still taking their intended medications without any difficulties. [employer] Required: No Allergies latex [LATEX] Allergy (Unknown, Verified 02/05/24 13:14) Rash seafood Allergy (Verified 02/05/24 13:14) Swelling cinnamon Adverse Reaction (Severe, Verified 02/05/24 13:14) Diarrhea Penicillins [PCN] Adverse Reaction (Severe, Verified 02/05/24 13:14) nausea, severe diarrhea, vomiting amoxicillin Adverse Reaction (Unknown, Verified 02/05/24 13:14) GI symptoms anything ending in cillin Allergy (Unknown, Uncoded 04/30/23 13:47) Unknown PICKLES Allergy (Unknown, Uncoded 04/30/23 13:47) Rash HPI HPI 3 month f/u GES, Allergy referral: Details: LAST VISIT Duodenitis Multiple food allergies GERD (gastroesophageal reflux disease) Constipation Early satiety Plan Continue Nexium and sucralfate. Patient will start taking senna daily. Increase fluid intake and activity to promote better bowel motility. Continue avoiding dietary triggers and late night snacking. Staying upright for minimum 3 hours after meals discussed with patient. Patient will be sent for gastric emptying study. Patient admits that she frequently feels like she gets full very quickly. Patient will return in 3 months. Please send referral to different allergy group. Patient was never called. Patient was instructed to call herself in about 2-3 weeks. Patient will call the office if she will continue to have GI concerning symptoms. She is agreeable to this plan and verbalizes understanding of instructions. She was given the opportunity to ask questions and all questions answered. ? Thank you for allowing me to participate in her care Orders Orders NM gastric emptying study 10/23/23 R68.81 Medications New sennosides (Natural Senna Laxative) 17.2 mg (2 x 8.6 mg) PO BEDTIME 60 tabs 3RF constipation K59.00 Refilled sucralfate 1 g PO BEDTIME 30 tabs 4RF R19.7 TODAY'S VISIT Patient is here today for follow-up and to discuss gastric emptying study. Patient reports that since she was seen last visit she is feeling better, however occasionally when she eats food from restaurants specially fast food she will have epigastric pain and acid reflux. Patient reports that she is moving her bowels better now and does not feel full after eating a meal. Patient denies dyspepsia, dysphagia or odynophagia. Denies melena, hematochezia. Patient is trying to avoid dietary triggers or eating late at night. Occasionally snacking late at night. Patient is taking Nexium in the morning and reports that for the most part and her symptoms are suppressed. Taking sucralfate at bedtime. Patient admits that she is not drinking enough fluids. [facility] Medical History Duodenitis HTN (hypertension) Diabetes type 2, controlled Bipolar affective disorder Asthma Chronic GERD Osteoarthritis of lower back Surgical History History of esophagogastroduodenoscopy (EGD) Hx of colonoscopy S/P biopsy of cervix History of repair of left rotator cuff Family History Father HTN (hypertension) High cholesterol Paternal Uncle Heart disease Paternal Aunt Heart disease Social History Household Members: Family Alcohol intake: current Alcohol intake frequency: holidays/special occasions only Patient Tobacco Use Status: Current everyday Tobacco user Tobacco use type: Cigarette Cigarette Packs Per Day: 0.5 Cigarettes Per Day: 5 Years Smoked: 30 Review of Systems Const Denies weight gain and Denies weight loss ENT Reports no additional complaints, Denies dysphagia and Denies odynophagia Card Reports no additional complaints Resp Reports no additional complaints GI Denies abdominal pain, Denies belching, Denies melena, Reports bloating, Reports constipation, Denies dysphagia, Denies excessive flatus, Reports early satiety, Denies dyspepsia, Reports heartburn, Denies diarrhea, Denies loose stools, Denies nausea, Denies odynophagia and Denies vomiting Reports no additional complaints Musc Reports no additional complaints Neuro Reports no additional complaints Psych Reports no additional complaints Endo Reports no additional complaints Physical Exam Vital Signs: Last Vital Signs Pulse 72 02/05/24 13:08 BP 140/68 H 02/05/24 13:08 Pulse Ox 97 02/05/24 13:08 Oxygen Delivery Method Room Air 02/05/24 13:08 BMI result Body Mass Index 31.2 Const General: healthy appearing and no acute distress Nutritional Appearance: obese Orientation/consciousness: patient oriented x3 Resp Effort & Inspection: normal respiratory effort, able to speak in complete sentences, no tracheal deviation and symmetric chest movement Auscultation: clear to auscultation bilaterally Cardio Rate: regular rate GI Inspection: Yes normal to inspection, No distended and Yes obesity Palpation (GI): Soft to palpation, not firm, nontender and No hepatosplenomegaly present Auscultation: normal bowel sounds General: Yes no CVA tenderness Back/Spine/Pelvis Back: no CVA tenderness Skin General skin exam: elasticity normal, turgor normal and dry skin Neuro General: patient oriented x3 Psych Appearance: grossly normal Mental Status: mental status grossly normal Results Reviewed Results Reviewed: GASTRIC EMPTYING STUDY FINDINGS: There is good visualization of activity in the stomach immediately post ingestion. As the study progresses, there is good clearance of activity from the stomach and visualization of progressively increasing small bowel activity. By the end of the study, there is mild retention noted in the stomach. Retention in the stomach at each time interval was: 1 hour 79% (normal 37%-90%) 2 hours 58% (normal 30%-60%) 3 hours 29% 4 hours 15% (normal 0%-10%) NM/NM gastric emptying study IMPRESSION: Mildly delayed (grade 1) 4-hour solid food gastric emptying study. Assessment & Plan Assessment & Plan (1) Duodenitis: Code(s): K29.80 - Duodenitis without bleeding Category: Medical (2) Multiple food allergies: Code(s): Z91.018 - Allergy to other foods (3) GERD (gastroesophageal reflux disease): Code(s): K21.9 - Gastro-esophageal reflux disease without esophagitis Qualifiers: Esophagitis presence: without esophagitis Qualified Code(s): K21.9 - Gastro-esophageal reflux disease without esophagitis (4) Constipation: Code(s): K59.00 - Constipation, unspecified Qualifiers: Constipation type: slow transit constipation Qualified Code(s): K59.01 - Slow transit constipation (5) Early satiety: Code(s): R68.81 - Early satiety Plan Patient will continue taking Nexium in the morning. Patient will try to avoid dietary triggers and late night snacking. Staying upright for minimum 3 hours after meals discussed with patient. Avoid eating large meals, patient was encouraged to eat small meals and more often. Avoid fiber. Continue taking senna daily. Increase fluid intake and activity to promote better bowel motility. Patient will follow-up in 6 months, however she will call us if she will have any worsening GI symptoms. Patient is agreeable to this plan and verbalizes understanding of instructions. She was given the opportunity to ask questions and all questions answered. Thank you for allowing me to participate in her care Medications: Refilled esomeprazole magnesium (Nexium) 40 mg PO DAILY 30 caps 5RF K21.9 - Gastro-esophageal reflux disease without esophagitis Coding Level of Care Code Est Pt Level 4 (37411) Diagnoses Duodenitis K29.80 Multiple food allergies Z91.018 Gastroesophageal reflux disease without esophagitis K21.9 Esophagitis presence: without esophagitis Slow transit constipation K59.01 Constipation type: slow transit constipation Early satiety R68.81 Time Spent (min) 35 Comment 20 minutes spent with patient and additional 15 minutes spent reviewing her records
== END 2024-02-05 14:01 | disposition home or self-care (01) ==
PROVIDERS: PCP Internal Medicine; Visit Provider Nurse Practitioner Family
DX: K29.80 Duodenitis without bleeding (principal); Z91.018 Allergy to other foods; K21.9 Gastro-esophageal reflux disease without esophagitis; K59.01 Slow transit constipation; R68.81 Early satiety
CPT/HCPCS: 99214

== ENCOUNTER → 2024-02-05 12:56 | Outpatient (BNVA) | payer MEDICAID, SELFPAY | PROVIDERS: PCP Internal Medicine; Visit Provider Nurse Practitioner Family | DX: K21.9 Gastro-esophageal reflux disease without esophagitis (principal) | CPT/HCPCS: 99212 ==

== ENCOUNTER 2024-06-16 09:50 | Outpatient (REF) | payer MEDICAID, SELFPAY ==
--- OUTSIDE RECORDS SUMMARY | 2024-06-16 14:27 | XMS_ITS | Encounter Summary ---
Author Organization [employer] Address [address] [facility] 7t [place] [address] Care Team Providers Care Rivet Hole Puncher Name Role Phone Fern Morley MD Primary Care Provider + Mike Mack Unavailable Unavailable Reason for Visit * Reason Comments Med Refill Encounter Details Date Type Department Care Team ([facility] st Contact Info) Description 05/08/[address] [facility] [address] [place], [place] [phone] Fern Morley MD [address] [place] [address] Primary osteoarthritis of both knees Social History [...] Description 09/09/2024 9:30 AM EDT Office Visit [facility] [address] [place] [address] Majo Castillo, OD [address] [place] [address] documented as of this encounter Visit Diagnoses Diagnosis Primary osteoarthritis of both knees documented in this encounter Additional Health Concerns Assessment Noted Time PHQ-9 Depression Total Score: 6 10/01/19 24 10:52 AM EDT documented as of this encounter Care Teams Rivet Hole Puncher Relationship Specialty Start Date End Date Fern Morley MD [address] [place] [address] PCP - General Family Medicine 06/28/20 Mike Mack FNP [address] [place] [address] Nurse Practitioner Family Medicine 04/03/23 documented as of this encounter
--- OUTSIDE RECORDS SUMMARY | 2024-06-16 14:27 | XMS_ITS | Encounter Summary ---
Author Organization [employer] Address [address] [facility] [address] [place] [address] Care Team Providers Care Boiler Room Operator Name Role Phone Fern Morley MD Primary Care Provider + Mike Mack Unavailable Unavailable Reason for Visit * Reason Comments Med Refill Encounter Details Date Type Department Care Team ([facility] st Contact Info) Description 05/18/2024 Refill [facility] [address] [place], [place] [phone] Fern Morley MD [address] [place] [address] Social History Tobacco Use Types Packs/Day Years [...] 9:30 AM EDT Office Visit [facility] [address] [place] [address] Majo Castillo, OD [address] [place] [address] documented as of this encounter Visit Diagnoses Not on filedocumented in this encounter Additional Health Concerns Assessment Noted Time PHQ-9 Depression Total Score: 6 10/01/19 24 10:52 AM EDT documented as of this encounter Care Teams Boiler Room Operator Relationship Specialty Start Date End Date Fern Morley MD [address] [place] [address] PCP - General Family Medicine 06/28/20 Mike Mack FNP [address] [place] [address] Nurse Practitioner Family Medicine 04/03/23 documented as of this encounter
--- OUTSIDE RECORDS SUMMARY | 2024-06-16 14:27 | XMS_ITS | Clinical Summary ---
Author Organization [employer] Address [address] [facility] 7t [place] [address] Care Team Providers Care Rn Nursery Name Role Phone Fern Morley MD Primary Care Provider + Mike aMck Unavailable Unavailable Allergies Active Allergy Reactions Criticality [...] STD tested. Bunion of left foot 06/16/2024 Assessment & Plan (06/16/2024 1:20 PM EST): Advised to wear bunion corrector daily and re consult PRN. Arthritis of both hands 06/16/2024 Assessment & Plan (06/16/2024 1:21 PM EST): Advised to continue CA + D, regular physical activity 150 min per week. Take Tylenol PRN. Advised to try OTC Glucosamine for 6 months, will FU in 6 months. Class 1 obesity due to exces s calories with serious comorbidity and body mass index (BMI) of 31.0 to 31.9 in adult 06/16/2024 Assessment & Plan (06/16/2024 1:54 PM EST): Discussed re weight reduction options including exercise, life style modifications, diet. Recommended to decrease soda and sugary beverage consumption, increase protein intake with meals (at least 1 portion of protein with each meal) to assist with satiety, increase dietary fiber Recommended at least 150 min/week of moderate intensity exercise. DC Metformin due to intolerance, start Topamax 25 mg QHS and FU in 1-2 months. Declined a referral to dietitian. Pelvic pain in female 06/16/2024 Assessment & Plan (06/16/2024 1:53 PM EST): Only on bimanual palpation during PAP smear, on left side. I explained to patient that I would like to ro other conditions including fibroid, adnexal lesion etc but she declined to be referred for pelvic US or addtl ENGINEERING TEST SPECIALIST evaluation. She understood that there may be conditions that Im unable to dx at this time, still wants to hold off on pelvic US . I will fu at next appt if she develops pelvic pain or other sxs. Viral upper respiratory tract infection 02/21/20 Assessment & Plan (02/21/2024 10:12 AM EDT): [...] lisinopril same dose. She's off amlodipine, last nut picker rx was On 08/2022 x 90d [...] insurance issue, I gave her information re [facility] to make an appt for counseling and [...] as usual. Any issues or concerns, call [facility]. All her questions were answered and I [...] Gastroesophageal reflux disease 04/14/2022 Assessment & Plan (06/16/2024 1:22 PM EST): Improved off Metformin, will continue off medications. Discussed with pt regarding cutting down on fat and high calorie foods. Advised to remain upright at least 30 min after each meal. FU with GI PRN. Assessment & Plan (02/21/2024 9:44 AM EDT): Seen by GI, on Esomeprazole, doing better than on Protonix. Will send rx esomeprazole to our pharmacy and fu next mo DC metformin and fu GI sxs next month Perimenopause 04/14/2022 Primary osteoarthritis of both knees 04/14/2022 Psychoactive substance abuse 04/14/2022 Traumatic rotator cuff tear 04/14/2022 Type 2 diabetes mellitus without complication Assessment & Plan (06/16/2024 1:19 PM EST): Most likely controlled off Metformin, FU A1c in 2-3 months. Counseled re more frequent low calorie/carb meals. Encouraged physical activity as tolerated. Assessment & Plan (05/14/2024 7:54 PM EST): [...] Description 06/16/2024 9:15 AM EST Procedure Visit [facility] MEDICINE [address] [place] [address] Fern Morley MD Encounter for cervical Pap smear with pelvic exam (Primary Dx); Type 2 diabetes mellitus without complication, without long-term current use of insulin ([facility]); Screening examination for STD (sexually transmitted disease); Bunion of left foot; Arthritis of both hands; Gastroesophageal reflux disease with esophagitis, unspecified whether hemorrhage; Class 1 obesity due to excess calories with serious comorbidity and body mass index (BMI) of 31.0 to 31.9 in adult; Pelvic pain in female; Screening mammogram for breast cancer; Dietary counseling; Exercise counseling 06/16/2024 Travel 06/15/2024 Telephone [facility] MEDICINE [address] [place] [address] Flora Garza MA Chart Prep 05/18/2024 Refill [facility] [address] [place] [address] Fern Morley MD 05/09/2024 Refill [facility] [address] [place] [address] Fern Morley MD 05/08/2024 Refill [facility]INE [address] [place] [address] Fern Morley MD Primary osteoarthritis of both knees 04/28/2024 Telephone [facility] MEDICINE [address] [place] [address] Fern Morley MD June04/15/2024 Telephone [facility] MED[facility]INE [address] [place] [address] Fern Morley MD No Show 04/14/2024 Telephone [facility] MEDICINE [address] [place] [address] Vivi Wheat MA Chart prep from Last [...] Description 09/09/2024 9:30 AM EDT Office Visit [facility] OPTOMETRY [address] [place] [address] Jonathan, Majo, OD [address] [place] [address] Health Maintenance Due Date Last Done Comments CT Colonography 1972 FIT DNA/Cologuard 1972 FIT 1972 FOBT 1972 Sigmoidoscopy 1972 Diabetes: Foot Exam 1982 Alcohol/Substance Use Screening 1984 Family Planning (PISQ) 08/02/1987 Hepatitis A Vaccines (1 of 2 - Risk 2-dose series) 08/02/1991 Hepatitis B Vaccines (1 of 3 - 19+ 3-dose series) 08/02/1991 Zoster Vaccines (1 of 2) 09/20/2022 Pneumococcal Vaccine: 50+ Years (2 of 2 - PCV) 01/09/2023 01/09/2022 DTaP/Tdap/Td Vaccines (2 - Td or Tdap) 07/07/2023 07/07/2013, 07/29/2004 SDOH Screening 07/28/2023 07/27/2022 COVID-19 Vaccine ( - season) 2024 03/22/2021, 03/01/2021 Influenza Vaccine (#1) 2024 01/31/2018, 2013 Diabetes: Hemoglobin A1C 08/21/2024 024, 03/11/2023, 07/27/2022, Additional history exists Depression Screening 09/30/2024 10/01/2023, 10/01/19 Eye Exam 10/17/2024 10/17/2022, 06/0 11/2022, 10/17/2022, Additional history exists Mammogram 03/11/2025 03/11/2023, 03/10/2018 Diabetes: Urine Protein Screening 06/16/2025 06/16/2024, 10/10/2021 Lipid Panel 06/16/2025 06/16/2024, 09/11, 10/06/2021, Additional history exists Tobacco Screening 06/16/2025 06/16/2024 Cervical Cancer Screening 01/25/2026 HPV/Cotest 01/25/2026 01/25/2021, 06/13, 02/21/2017 Pap Smear 01/25/2026 01/25/2021 Colonoscopy 10/09/2032 10/09/2022 Colorectal Cancer Screening 10/09/2032 RSV Patients and Patients Aged 60 years or older (1 - 1-dose 75+ series) 08/02/2047 HIV Screening Completed 06/16/2024, 06/13, 06/25/2019 Hepatitis C Screening Completed 06/16/2024 HIB Vaccines Aged Out No longer eligi [...] Procedure Name Priority Date/Time Associated Diagnosis Comments SYPHILIS SCREEN Routine 06/16/2024 10:10 AM EST Screening examination for STD (sexually transmitted disease) HIV 1/2 ANTIGEN/ANTIBODY, FOURTH GENERATION W/RFL Routine 06/16/2024 10:10 AM EST Screening examination for STD (sexually transmitted disease) HEPATITIS PANEL, GENERAL Routine 06/16/2024 10:10 AM EST Screening examination for STD (sexually transmitted disease) VITAMIN D,25-OH,TOTAL,IA Routine 06/16/2024 10:10 AM EST Esophagitis TSH W/REFLEX TO FT4 Routine 06/16/2024 1 0:10 AM EST Type 2 diabetes mellitus without complication, without long-term current use of insulin (CMS/HCC) Esophagitis CBC WITH AUTO DIFFERENTIAL Routine 06/16/2024 10:10 AM EST Esophagitis Gastroesophageal reflux disease with esophagitis, unspecified whether hemorrhage ALBUMIN, RANDOM URINE W/CREATININE Routine 06/16/2024 10:10 AM EST Type 2 diabetes mellitus without complication, without long-term current use of insulin (CMS/HCC) BASIC METABOLIC PANEL Routine 06/16/2024 10:10 AM EST Type 2 diabetes mellitus without complication, without long-term current use of insulin (CMS/HCC) LIPID PANEL WITH REFLEX TO DIRECT LDL Routine 06/16/2024 10:10 AM EST Type 2 diabetes mellitus without complication, without long-term current use of insulin (CMS/HCC) CHLAMYDIA/N. GONORRHOEAE RNA, TMA, UROGENITAL Routine 06/16/2024 10:10 AM EST Encounter for cervical Pap smear with pelvic exam POCT GLYCATED HEMOGLOBIN, TOTAL Routine 02/21/2024 9:20 AM EDT Type 2 diabetes mellitus without complication, without long-term current use of insulin (CMS/HCC) BI MAMMOGRAM SCREENING BILATERAL Routine 03/11/2023 Screening mammogram for breast cancer HM COLONOSCOPY Routine 10/09/2022 HPV MRNA E6/E7 Routine 01/25/2021 12:00 AM EDT THINPREP PAP Routine 01/25/2021 12:00 AM EDT from Last 3 Months or Most Recently Relevant to Health Maintenance Results * Syphilis Screen (06/16/2024 10:10 AM EST) Syphilis Screen Nonreactive Nonreactive [facility] Blood 06/16/2024 10:1 0 AM EST 06/16/2024 11:24 AM EST Fern Morley MD LAB BLOOD ORDERABLES Fin al Result Performing Organization Address [facility] de Phone Number [facility] [address] [place] [phone] * Vitamin D, 25-Hydroxy, Total, Immunoassay (06/16/2024 10:10 AM EST) Vitamin D 25-OH Total 52.7 >30 ng/mL [facility] Comment:Health Based Referen ce Values*< 20 ng/mL Ajoaijnoh27-38 ng/mL Insufficient> 30 ng/mL Sufficient*Ruddy GILBERT. N Engl J Med. 2007;357:266-280Care must be taken in interpreting Vitamin D results fromdifferent laboratories and methodologies. Published datademonstrated that results from patients undergoinghemodialysis may show a negative bias when tested withvarious automated 25-OH vitamin D assays when compared toLC-MS/MS.When testing samples from patients whose predominant form ofVitamin D is Vitamin D2, such as patients receiving VitaminD2 supplementation, results that are subtherapeutic shouldbe confirmed with another method such as LC-MS/MS. Blood 06/16/2024 10:1 0 AM EST 06/16/2024 11:24 AM EST Fern Morley MD LAB BLOOD ORDERABLES Fin al Result Performing Organization Address City/[facility]/ZIP Co de Phone Number [facility] [address] [place] [phone] [phone] * TSH with Reflex to Free T4 (06/16/2024 10:10 AM EST) TSH reflex Free T4 0.52 0.32 - 4.0 uIU/mL [facility] Blood 06/16/2024 10:1 0 AM EST 06/16/2024 11:24 AM EST us Fern Morley MD LAB BLOOD ORDERABLES Fin al Result [facility] [address] [place] [phone] * (ABNORMAL) Lipid Panel with Reflex to Direct LDL (06/16/2024 10:10 AM EST) Triglycerides 90 <150 mg/dL [facility] Comment:Desirable Triglyceri de: less than 150 mg/dLBorderline High Triglyceride 150-199 mg/dLHigh Triglyceride: 200-499 mg/dLVery High Triglyceride: greater than or equal to 5OO mg/dL Cholesterol 183 <200 mg/dL [facility] Comment:Desirable Cholestero l: less than 200 mg/dLBorderline High Cholesterol: 200-239 mg/dLHigh Cholesterol: greater than 239 mg/dL LDL Cholesterol Calculated 112(H) <100 mg/dL [facility] Comment:Desirable LDL: less than 100 mg/dLNear Optimal/Above Optimal LDL: 110- 129 mg/dLBorderline High LDL: 130-159 mg/dLHigh LDL: 160-189 mg/dLVery High LDL: greater than or equal to 190 mg/dL HDL Cholesterol 53 >40 mg/dL [facility] Comment:Desirable HDL: great er than 40 mg/dL Note: This HDL assay may give artificially low results in patients with liver disease. Blood 06/16/2024 10:1 0 AM EST 06/16/2024 11:24 AM EST us Fern Morley MD LAB BLOOD ORDERABLES Fin al Result Performing Organization Address City/[facility] Co de Phone Number [facility] [address] [place] [phone] * Hepatitis Panel, General (06/16/2024 10:10 AM EST) Hepatitis A IgM Nonreactive Nonreactive [facility] Comment:IgM antibodies to VELASQUEZ V not detected; does not exclude earlyacute or recovered HAV infection. ~Hepatitis B Surface Antibody REACTIVE Nonreactive [facility] Comment:REACTIVE: > 11.99 mI U/mL Hepatitis B Core Antibody Nonreactive Nonreactive [facility] Hepatitis C Antibody Nonreactive Nonreactive [facility] Comment:Antibodies to HCV no t detected; does not exclude early acuteHCV infection. Hepatitis B Surface Ag Negative Negative [facility] Blood 06/16/2024 10:1 0 AM EST 06/16/2024 11:24 AM EST us Fern Morley MD LAB BLOOD ORDERABLES Fin al Result Performing Organization Address [facility] Co de Phone Number [facility] [address] [place] [phone] * Albumin, Random Urine W/Creatinine (06/16/2024 10:10 AM EST) Creatinine, Urine 246.37 mg/dL [facility] Microalbumin Urine 10.0 mg/L [facility] Microalbum Creatinine Ratio Ur 4.0 <30 ug/mg cr [facility] Comment:Albumin/Creatinine R atio Reference Ranges: Normal: < 30 ug/mg creatinine Microalbuminuria: 30 - 300 ug/mg creatinineClinical Albuminuria: > 300 ug/mg creatinine Urine (Urine, Random) 06/16/2024 10:10 AM EST 06/16/2024 11:18 AM EST Fern Morley MD LAB URINE ORDERABLES Fin al Result Performing Organization Address City/[facility]/ZIP Co de Phone Number [facility] [address] [place] [phone] * (ABNORMAL) CBC auto differential (06/16/2024 10:10 AM EST) White Blood Count 6.9 4.8 - 10.8 X10*3/uL [facility] Red Blood Count 5.45 4.20 - 5.50 X10*6/uL [facility] Hemoglobin 14.4 12.0 - 16.0 g/dl [facility] Hematocrit 43.1 37.0 - 47.0 % [facility] Mean Corpuscular Volume 79.1(L) 80.0 - 98.0 fL [facility] Mean Corpuscular Hemoglobin 26.4(L) 27.0 - 33.0 pg [facility] Mean Corpuscular HGB Conc 33.4 31.0 - 35.0 g/dl [facility] Red Cell Distribution Width 13.4 11.0 - 16.0 % [facility] Platelet Count 275 160 - 400 X10*3/uL [facility] Mean Platelet Volume 11.5 9.4 - 12.3 fL [facility] Neutrophils Percent Auto 60.2 45 - 73 % [facility] Imm Gran Pct Auto 0.1 0.0 - 0.4 % [facility] Lymphocytes Percent Auto 29.3 20 - 40 % [facility] Monocytes Percent Auto 6.0 2 - 11 % [facility] Eosinophils Percent Auto 3.8 0 - 4 % [facility] Basophils Percent Auto 0.6 0 - 2 % [facility] NRBC Pct Auto 0.0 0.0 - 0.2 /100WBC [facility] Neutrophils Absolute Auto 4.1 2.0 - 8.3 x10*3/uL [facility] Imm Gran Abs Auto 0.01 0.00 - 0.03 X10*3/uL [facility] Lymphocytes Absolute Auto 2.0 1.2 - 4.9 X10*3/uL [facility] Monocytes Absolute Auto 0.4 0.1 - 1.2 X10*3/uL [facility] Eosinophils Absolute Auto 0.3 0.0 - 0.4 X10*3/uL [facility] Basophils Absolute Auto 0.0 0.0 - 0.2 X10*3/uL [facility] NRBC Abs Auto 0.000 0.0 - 0.012 X10*3/uL [facility] Blood Venous blood specimen / Unknown 06/16/2024 10:10 AM EST 06/16/2024 11:24 AM EST us Fern Morley MD LAB BLOOD ORDERABLES Fin al Result [facility] [address] [place] [phone] * Chlamydia/N. Gonorrhoeae RNA, TMA, Urogenitial (06/16/2024 10:10 AM EST) CT PCR NOT DETECTED Not Detect. [facility] Comment:A not detected test result does not exclude the possibilityof infection because test results can be affected byimproper specimen collection, concurrent antibiotic therapy,or the number of organisms in the specimen which may bebelow the sensitivity of the test. As with many diagnostictests, results from the Xpert CT/NG assay should beinterpreted in conjunction with other laboratory andclinical data available to the clinician.Xpert CT/NG performance has not been evaluated in patientsless than 14 years of age. The assay should not be used forthe evaluationof suspected sexual abuse or for other medico-legalindications. Additional testing is recommended in anycircumstance when false positive or false negative resultscould lead to adverse medical, social or psychologicalconsequences. NG PCR NOT DETECTED Not Detect. [facility] Comment:A not detected test result does not exclude the possibilityof infection because test results can be affected byimproper specimen collection, concurrent antibiotic therapy,or the number of organisms in the specimen which may bebelow the sensitivity of the test. As with many diagnostictests, results from the Xpert CT/NG assay should beinterpreted in conjunction with other laboratory andclinical data available to the clinician.Xpert CT/NG performance has not been evaluated in patientsless than 14 years of age. The assay should not be used forthe evaluationof suspected sexual abuse or for other medico-legalindications. Additional testing is recommended in anycircumstance when false positive or false negative resultscould lead to adverse medical, social or psychologicalconsequences. Urine (Urine, Random) 06/16/2024 10:10 AM EST 06/16/2024 11:18 AM EST Narrative [facility] - 06/16/2024 1:01 PM EST Urine us Fern Morley MD LAB MICROBIOLOGY - GENER AL ORDERABLES Final Result Performing Organization Address [facility] Co de Phone Number [facility] [address] [place] [phone] * HIV-1/2 Antigen and Antibodies, Fourth Generation, with Reflexes (06/16/2024 10:10 AM EST) HIV AB/AG Nonreactive Nonreactive [facility] Comment:HIV-1 p24 Ag and/or HIV-1/HIV-2 Ab not detected.A test result that is nonreactive does not exclude thepossibility of exposure to or infection with HIV-1 and/orHIV-2. Nonreactive results in this assay for individualswith prior exposure to HIV-1 and/or HIV-2 may be due toantigen and antibody levels that are below the limit ofdetection of this assay.The [employer] HIV Ag/Ab Combo assay result andsupplemental assay results should be interpreted inconjunction with the patient's clinical presentation,history and other laboratory results. If the results areinconsistent with clinical evidence, additional testing issuggested to confirm the result. Blood Venous blood specimen / Unknown 06/16/2024 10:10 AM EST 06/16/2024 11:24 AM EST us Fern Morley MD LAB BLOOD ORDERABLES Fin al Result Performing Organization Address [facility] Co de Phone Number [facility] [address] [place] [phone] * (ABNORMAL) Basic Metabolic Panel (06/16/2024 10:10 AM EST) Sodium 139 135 - 145 mmol/L [facility] Potassium 4.0 3.3 - 5.1 mmol/L [facility] Chloride 108 96 - 108 mmol/L [facility] Carbon Dioxide 21(L) 22 - 29 mmol/L [facility] Anion Gap 14 12 - 20 [facility] Urea Nitrogen (BUN) 13 9 - 16 mg/dL [facility] Creatinine, Serum 0.88 0.5 - 1.4 mg/dL [facility] Estimated Glomerular Filt Rate >60 [facility] Comment:Chronic Kidney Disea se: Estimated GFR < 60 mL/min/[id number] Kidney Disease: Estimated GFR < 15 mL/min/1.73m2 Glucose 113 60 - 115 mg/dL [facility] Calcium 9.3 8.4 - 10.2 mg/dL [facility] Blood Venous blood specimen / Unknown 06/16/2024 10:10 AM EST 06/16/2024 11:24 AM EST us Fern Morley MD LAB BLOOD ORDERABLES Fin al Result [facility] [address] [place] [phone] * (ABNORMAL) POCT HGB A1C (02/21/2024 9:20 AM EDT) Hemoglobin A1C 6.1(A) 4.0 - 6.0 % QC Media Lot # [id number] Lot# Expiration Date 718 Blood 02/21/2024 9:20 AM EDT Fern Morley MD POINT OF CARE TEST ENTER /EDIT ORDERABLES Final Result * BI Mammogram Screening Bilateral (03/11/2023) Anatomical Region Laterality Modality Breast Bilateral Mammography Fern Morley MD IMG BI PROCEDURES Final Result * Hm Colonoscopy (10/09/2022) Colonoscopy Normal Normal [facility] 10/09/2022 Fern Morley MD HEALTH MAINTENANCE Final Result Performing Organization Address [facility] Co de Phone Number [facility] [address] [place] [address] [phone] * THINPREP PAP (01/25/2021 12:00 AM EDT) [...] historic and ?? current clinical information. ?? Injection Mold Tooling Technician : SEE COMMENT [facility] Comment: YP, CT(ASCP) CT screening location: [address] ??[id number] Interpretation/R esult: Negative for intraepithelial lesion or malignancy. [facility] LMP: NONE [facility]IV[facility] Prev. BX: NONE [facility]IV[facility] Prev. PAP: NONE [facility]IV[facility] SOURCE: None given [facility] Statement Of Adequacy: SEE COMMENT [facility] Comment: Satisfactory for evaluation. Endocervical/transformation zone component absent. Age and/or menstrual status not provided 01/25/2021 Fern Morley MD LAB PATHOLOGY ORDERABLES Final Result Performing Organization Address City/[facility]/ZIP Co de Phone Number [facility] [address] * HPV mRNA E6/E7 (01/25/2021 12:00 AM EDT) HPV nRNA E6/E7 Not Detected Not Detected [facility] Comment: Methodology: Mh Teacher-Mediated Amplification This assay detects E6/E7 viral messenger RNA (mRNA) from 14 high-risk HPV types (16,18,31,33,35,39,45,51,52,56,58,59,66,68). ? The analytical performance characteristics of this assay have been determined by [facility]. The modifications have not been cleared or approved by the FDA. This assay has been validated pursuant to the CLIA regulations and is used for clinical purposes. ?? For additional information, please refer to http://education.[employer]/faq/MBH460n1 (This link if provided for information/ educational purposes only.) 01/25/2021 Fern Morley MD LAB BLOOD ORDERABLES Fin al Result [facility] [address] from Last 3 Months or Most Recently Relevant to Health Maintenance Insurance [facility] Care Teams Rn Nursery Relationship Specialty Start Date End Date Fern Morley MD [address] [place] [phone] PCP - General Family Medicine 06/28/20 Mike Mack FNP [address] [place] [phone] Nurse Practitioner Family Medicine 04/03/23
--- OUTSIDE RECORDS SUMMARY | 2024-06-16 14:27 | XMS_ITS | Clinical Summary ---
[facility] Organization [facility] Address [address] [place] [address] Care Team Providers Care Associate Media Director Name Role Phone Unavailable Primary Care Provider [...]
--- OUTSIDE RECORDS SUMMARY | 2024-06-16 14:27 | XMS_ITS | Encounter Summary ---
Author Organization [employer] Address [address] [facility] [address] [place] [address] Care Team Providers Care Olive Packer Name Role Phone Fern Morley MD Primary Care Provider + Mike Mack Unavailable Unavailable Reason for Visit * Reason Comments Med Refill Encounter Details Date Type Department Care Team ([facility] st Contact Info) Description 06/17/2023 Refill [facility] [address] [place], [place] [phone] Fern Morley MD [address] [place] [address] Social History Tobacco Use Types Packs/Day Years [...] Description 09/09/2024 9:30 AM EDT Office Visit [facility] OPTOMETRY [address] [place] [address] Majo Castillo, OD [address] [place] [address] documented as of this encounter Visit Diagnoses Not on filedocumented in this encounter Additional Health Concerns Assessment Noted Time PHQ-9 Depression Total Score: 10 023 11:14 AM EST documented as of this encounter Care Teams Olive Packer Relationship Specialty Start Date End Date Fern Morley MD [address] [place] [address] PCP - General Family Medicine 06/28/20 Mike Mack FNP [address] [place] [address] Nurse Practitioner Family Medicine 04/03/23 documented as of this encounter
--- OUTSIDE RECORDS SUMMARY | 2024-06-16 14:27 | XMS_ITS | Encounter Summary ---
Author Organization [employer] Address [address] [facility] 7t [place] [address] Care Team Providers Care Joss House Keeper Name Role Phone Fern Morley MD Primary [...] Description 09/09/2024 9:30 AM EDT Office Visit [facility] [address] [place] [address] Majo Castillo, OD [address] [place] [address] documented as of this encounter Visit Diagnoses Not on filedocumented in this encounter Additional Health Concerns Assessment Noted Time PHQ-9 Depression Total Score: 6 10/01/19 24 10:52 AM EDT documented as of this encounter Care Teams Joss House Keeper Relationship Specialty Start Date End Date Fern Morley MD [address] [place] [address] PCP - General Family Medicine 06/28/20 Mike Mack FNP [address] [place] [address] Nurse Practitioner Family Medicine 04/03/23 documented as of this encounter
--- OUTSIDE RECORDS SUMMARY | 2024-06-16 14:27 | XMS_ITS | Encounter Summary ---
Author Organization [facility] Address [address] [place] [address] [address], [place] [address] Care Team Providers Care Director Of Special Education Name Role Phone Fern Morley MD Primary Care Provider + Mike Mack CANDY FEEDER Unavailable Unavailable Reason for Referral * Imaging (Routine) - Authorized Specialty Diagnoses / Procedures Referred By Contac t Referred To Contact Radiology Diagnoses Screening mammogram for breast cancer Procedures BI Mammogram Screening Tomosynthesis Bilateral Fern Morley MD [address] [place] [phone] Phone: tel: fax: [address] Phone: tel: fax: Referral ID Status Reason Start Date Expiration Date V isits Requested Visits Authorized [id number] Authorized 06/16/2024 06/16/2025 1 1 Reason for Visit * Reason Comments Gynecologic Exam Encounter Details Date Type Department Care Team (Latest Contact Info) Description 06/16/2024 9:15 AM EST Procedure Visit [facility] [address] [place], [place] [phone] Fern Morley MD [address] [place], [place] [phone] Encounter for cervical Pap smear with pelvic exam (Primary Dx); Type 2 diabetes mellitus without complication, without long-term current use of insulin ([facility]/HCC); Screening examination for STD (sexually transmitted disease); Bunion of left foot; Arthritis of both hands; Gastroesophageal reflux disease with esophagitis, unspecified whether hemorrhage; Class 1 obesity due to excess calories with serious comorbidity and body mass index (BMI) of 31.0 to 31.9 in adult; Pelvic pain in female; Screening mammogram for breast cancer; Dietary counseling; Exercise counseling Social History Tobacco [...] the past 12 months, has t he [employer], gas, oil or water [employer] threatened to shut off services in your [...] Notes * Assessment & Plan Note - Fern Morley MD - 06/16/2024 1:53 PM EST Associated Problem(s): Pelvic pain in female Only on bimanual palpation during PAP smear, on left side. 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 She understood that there may be conditions that Im unable to dx at this time, still wants to hold off on pelvic US . I will fu at next appt if she develops pelvic pain or other sxs. * Assessment & Plan Note - Dilia Chris - 06/16/2024 1:23 PM ESTAssociated Problem(s): Class 1 obesity due to excess calories with serious comorbidity and body mass index (BMI) of 31.0 to 31.9 in adult Discussed re weight reduction options including exercise, [...] 1-2 months. Declined a referral to dietitian. * Assessment & Plan Note - Dilia Chris - 06/16/2024 1:22 PM ESTAssociated Problem(s): Gastroesophageal reflux disease Improved off Metformin, will continue off medications. Discussed with pt regarding cutting down on fat and high calorie foods. Advised to remain upright at least 30 min after each meal. FU with GI PRN. * Assessment & Plan Note - Dilia Chris - 06/16/2024 1:21 PM ESTAssociated Problem(s): Arthritis of both hands Advised to continue CA + D, regular physical activity 150 min per week. Take Tylenol PRN. Advised to try OTC Glucosamine for 6 months, will FU in 6 months. * Assessment & Plan Note - Dilia Chris - 06/16/2024 1:20 PM ESTAssociated Problem(s): Bunion of left foot Advised to wear bunion corrector daily and re consult PRN. * Assessment & Plan Note - Dilia Chris - 06/16/2024 1:19 PM ESTAssociated Problem(s): Type 2 diabetes mellitus without complication (CMS/HCC) Most likely controlled off Metformin, FU A1c in 2-3 months. Counseled re more frequent low calorie/carb meals. Encouraged physical activity as tolerated. * Assessment & Plan Note - Dilia [...] Description 09/09/2024 9:30 AM EDT Office Visit [facility] [address] [place], [place] [phone] Jonathan, Majo, OD [address] [place] [address] Scheduled Orders Name Type Priority Associated Diagnoses Order Schedule Pap Smear Pathology and Cytology Routine Encounter for cervical Pap smear with pelvic exam Ordered: 06/16/2024 Bacterial Vaginosis Microbiology Routine Encounter for cervical Pap smear with pelvic exam Expected: 06/16/2024 (Approximate), Expires: 06/16/2025 BI Mammogram Screening Tomosynthesis Bilateral Imaging Routine Screening mammogram for breast cancer Expected: 06/16/2024 (Approximate), Expires: 08/14/2025 documented as of this encounter Procedures Procedure Name Priority Date/Time Associated Diagnosis Comments SYPHILIS SCREEN Routine 06/16/2024 10:10 AM EST Screening examination for STD (sexually transmitted disease) HEPATITIS PANEL, GENERAL Routine 06/16/2024 10:10 AM EST Screening examination for STD (sexually transmitted disease) CHLAMYDIA/N. GONORRHOEAE RNA, TMA, UROGENITAL Routine 06/16/2024 10:10 AM EST Encounter for cervical Pap smear with pelvic exam HIV 1/2 ANTIGEN/ANTIBODY, FOURTH GENERATION W/RFL Routine 06/16/2024 10:10 AM EST Screening examination for STD (sexually transmitted disease) documented in this encounter Results * Chlamydia/N. Gonorrhoeae RNA, TMA, Urogenitial (06/16/2024 10:10 AM EST) CT PCR NOT DETECTED Not Detect. [facility] Comment:A not detected test result [...] psychologicalconsequences. NG PCR NOT DETECTED Not Detect. [facility] Comment:A not detected test result [...] AM EST 06/16/2024 11:18 AM EST Narrative [facility] - 06/16/2024 1:01 PM EST Urine us Fern Morley MD LAB MICROBIOLOGY - GENER AL ORDERABLES Final Result Performing Organization Address [facility]/ZIP Co de Phone Number [facility] [address] [place] [phone] * Syphilis Screen (06/16/2024 10:10 AM EST) Syphilis Screen Nonreactive Nonreactive [facility] Blood 06/16/2024 10:1 0 AM EST 06/16/2024 11:24 AM EST Fern Morley MD LAB BLOOD ORDERABLES Fin al Result Performing Organization Address [facility] de Phone Number [facility] [address] [place] [phone] * HIV-1/2 Antigen and Antibodies, Fourth Generation, with Reflexes (06/16/2024 10:10 AM EST) HIV AB/AG Nonreactive Nonreactive [facility] Comment:HIV-1 p24 Ag and/or HIV-1/HIV-2 Ab not detected.A test result that is nonreactive does not exclude thepossibility of exposure to or infection with HIV-1 and/orHIV-2. Nonreactive results in this assay for individualswith prior exposure to HIV-1 and/or HIV-2 may be due toantigen and antibody levels that are below the limit ofdetection of this assay.The [email or web address] HIV Ag/Ab Combo assay result andsupplemental assay results should be interpreted inconjunction with the patient's clinical presentation,history and other laboratory results. If the results areinconsistent with clinical evidence, additional testing issuggested to confirm the result. Blood Venous blood specimen / Unknown 06/16/2024 10:10 AM EST 06/16/2024 11:24 AM EST Fern Morley MD LAB BLOOD ORDERABLES Fin al Result Performing Organization Address [facility] Co de Phone Number [facility] [address] [place] [phone] * Hepatitis Panel, General (06/16/2024 10:10 AM EST) Hepatitis A IgM Nonreactive Nonreactive [facility] Comment:IgM antibodies to VELASQUEZ V not detected; does not exclude earlyacute or recovered HAV infection. ~Hepatitis B Surface Antibody REACTIVE Nonreactive [facility] Comment:REACTIVE: > 11.99 mI U/mL Hepatitis B Core Antibody Nonreactive Nonreactive [facility] Hepatitis C Antibody Nonreactive Nonreactive [facility] Comment:Antibodies to HCV no t detected; does not exclude early acuteHCV infection. Hepatitis B Surface Ag Negative Negative [facility] Blood 06/16/2024 10:1 0 AM EST 06/16/2024 11:24 AM EST us Fern Morley MD LAB BLOOD ORDERABLES Fin al Result [facility] [address] [place] [phone] documented in this encounter Visit Diagnoses Diagnosis Encounter for cervical Pap smear with pelvic exam- Primary Type 2 diabetes mellitus without complication, without long-term current use of insulin ([facility]) Screening examination for STD (sexually transmitted disease) Bunion of left foot Bunion Arthritis of both hands Gastroesophageal reflux disease with esophagitis, unspecified whether hemorrhage Class 1 obesity due to excess calories with serious comorbidity and body mass index (BMI) of 31.0 to 31.9 in adult Pelvic pain in female Unspecified symptom associated with female genital organs Screening mammogram for breast cancer Dietary counseling Dietary surveillance and counseling Exercise counseling documented in this encounter Additional Health Concerns Assessment Noted Time PHQ-9 Depression Total Score: 6 10/01/19 24 10:52 AM EDT documented as of this encounter Care Teams Director Of Special Education Relationship Specialty Start Date End Date Fern Morley MD [address] [place] [phone] PCP - General Family Medicine 06/28/20 Mike Mack FNP [facility] [place] [address] Nurse Practitioner Family Medicine 04/03/23 documented as of this encounter
--- OUTSIDE RECORDS SUMMARY | 2024-06-16 14:27 | XMS_ITS | Encounter Summary ---
Author Organization [employer] Address [address] [facility] 7t [place] [address] Care Team Providers Care Bioprocess Engineer Name Role Phone Fern Morley MD Primary Care Provider + Mike Mack Unavailable Unavailable Reason for Visit * Reason Onset Date Comments Chart Prep 06/15/2024 Encounter Details Date Type Department Care Team ([facility] st Contact Info) Description 06/15/2024 Telephone [facility] [address] [place] [address] Flora Garza MA Chart Prep Social History [...] Description 09/09/2024 9:30 AM EDT Office Visit [facility] [address] [place] [address] Jonathan, Majo, OD [address] [place] [address] documented as of this encounter Visit Diagnoses Not on filedocumented in this encounter Additional Health Concerns Assessment Noted Time PHQ-9 Depression Total Score: 6 10/01/19 24 10:52 AM EDT documented as of this encounter Care Teams Bioprocess Engineer Relationship Specialty Start Date End Date Fern Morley MD [address] [place] [address] PCP - General Family Medicine 06/28/20 Mike Mack FNP [address] [place] [phone] Nurse Practitioner Family Medicine 04/03/23 documented as of this encounter
[2024-06-16 15:35] LABS: Bacterial Vaginosis PCR NEGATIVE (Negative); Candida Group PCR NOT DETECTED (Not Detect); Candida glab krusei PCR NOT DETECTED (Not Detect); Trichomonas vaginalis PCR NOT DETECTED (Not Detect)
[2024-06-29 09:04] LABS: HPV Genotype 16 Negative (Negative); HPV Genotype 18 Negative (Negative); HPV High Risk Negative (Negative)
== END 2024-06-16 09:51 | disposition home or self-care (01) ==
LOC: HO.LNP 09:50
PROVIDERS: Visit Provider Internal Medicine
DX: Z01.419 Encounter for gynecological examination (general) (routine) without abnormal findings (principal)
CPT/HCPCS: 81515; 87491; 87591; 87626; 88175

== ENCOUNTER 2024-06-16 10:01 | Outpatient (REF) | payer MEDICAID, SELFPAY ==
--- OUTSIDE RECORDS SUMMARY | 2024-06-16 10:44 | XMS_ITS | Clinical Summary ---
Author Organization [facility] Address [address] [place] [address] Care Team Providers Care Manager Client Name Role Phone Unavailable Primary Care Provider Unavailabl e Social History Tobacco Use Types Packs/Day Years Used Date Smoking Tobacco: Never Assessed Sex and Gender Information Value Date Recorded Sex Assigned at Not on file Gender Identity Not on file Sexual Orientation Not on file Plan of Treatment Health Maintenance Due Date Last Done Comments Breast Cancer Screening 1972 DTaP,Tdap,and Td Vaccines (1 - Tdap) 08/02/1991 Hepatitis B Vaccines (1 of 3 - 19+ 3-dose series) 08/02/1991 Cervical Cancer Screening: P ap Smear 1993 Colorectal Cancer Screening: Colonoscopy 04/15/2022 Depression Screening 04/15/2022 HIV Screening 04/15/2022 Hepatitis C Screening 04/15/2022 Social Influencers of Health Screening 04/15/2022 Zoster Vaccines (1 of 2) 2022 COVID-19 Vaccine (2023-2 5 season) 2024 Influenza Vaccine (#1) 2024 HIB Vaccines Aged Out No longer eligi ble based on patient's age to complete this topic HPV Vaccines Aged Out No longer eligi ble based on patient's age to complete this topic Hepatitis A Vaccines Aged Out No long er eligible based on patient's age to complete this topic IPV Vaccines Aged Out No longer eligi ble based on patient's age to complete this topic MMR Vaccines Aged Out No longer eligi ble based on patient's age to complete this topic Meningococcal ACWY Vaccine Aged Out N o longer eligible based on patient's age to complete this topic Pneumococcal Vaccine: Pediat rics (0 to 5 Years) and At-Risk Patients (6 to 64 Years) Aged Out No longer eligible b ased on patient's age to complete this topic RSV Immunization Patients Un milagros 20 months Aged Out No longer eligible b ased on patient's age to complete this topic Varicella Vaccines Aged Out No longer eligible based on patient's age to complete this topic
--- OUTSIDE RECORDS SUMMARY | 2024-06-16 10:44 | XMS_ITS | Encounter Summary ---
Author Organization [employer] Address [address] [facility] [address] [place] [address] Care Team Providers Care Cmv Driver Name Role Phone Fern Morley MD Primary Care Provider + Mike Mack Unavailable Unavailable Reason for Visit * Reason Onset Date Comments Chart Prep 06/15/2024 Encounter Details Date Type Department Care Team ([facility] st Contact Info) Description 06/15/2024 Telephone [facility] [address] [place] [address] Flora Garza MA Chart Prep Social History Tobacco Use Types Packs/Day Years Used Date Smoking Tobacco: Every Day Cigarettes Smokeless Tobacco: Never Alcohol Use Standard Drinks/Week Comments Never 0 (1 standard drink = 0.6 oz pur e alcohol) Depression Answer Date Recorded Patient Health Questionnaire-9 Score 6 10/01/2023 Patient Health Questionnaire-9 Score 6 10/01/2023 Last PHQ-9: Questionnaire Data Not on file 0 10/01/2023 Housing Stability Answer Date Recorded What is your housing situation today? I have amanuel ruby 03/08/[address] you li ve. Do you have problems with any of the following? None of the above 03/08/2023 Food Insecurity Answer Date Recorded Within the past 12 months, y ou worried that your food would run out before you got money to buy more: Never True 03/08/2023 Within the past 12 months,th e food you bought just didn't last and you didn't have enough money to get more: Never True Transportation Answer Date Recorded In the past 12 months, has l ack of transportation kept you from medical appts, meetings, work or from getting things needed for daily living? Yes, it has kept me from medical appointments or getting medications. 02/16/2023 Utilities Answer Date Recorded In the past 12 months, has t he electric, gas, oil or water company threatened to shut off services in your home? No 03/08/2023 Depression Answer Date Recorded Patient Health Questionnaire-2 Score 4 10/01/2023 Comments No Sex and Gender Information Value Date Recorded Sex Assigned at Female 03/12/2022 10:14 AM EDT Legal Sex Female 10:14 AM EDT Gender Identity Female 03/12/2022 10:14 AM EDT Sexual Orientation Straight 03/12/2022 10 :14 AM EDT documented as of this encounter Miscellaneous Notes * Telephone Encounter - Flora Garza MA - 06/15/2024 10:25 AM EST Chart Prep Labs: not done Images: done Vaccines due: yes Referrals: complete Screenings: Foot Exam Overdue care gaps: A1C, Glucose, Sbirt, SDOH, Oral Health, [id number] documented in this encounter Plan of Treatment Upcoming Encounters Date Type Department Care Team (Late st Contact Info) Description 09/09/2024 9:30 AM EDT Office Visit [facility] OPTOMETRY [address] [place] [address] Jonathan, Majo, OD [address] [place] [address] documented as of this encounter Visit Diagnoses Not on filedocumented in this encounter Additional Health Concerns Assessment Noted Time PHQ-9 Depression Total Score: 6 10/01/19 24 10:52 AM EDT documented as of this encounter Care Teams Cmv Driver Relationship Specialty Start Date End Date Fern Morley MD [address] [place] [address] PCP - General Family Medicine 06/28/20 Mike Mack FNP [address] [place] [id number] Nurse Practitioner Family Medicine 04/03/23 documented as of this encounter
--- OUTSIDE RECORDS SUMMARY | 2024-06-16 10:44 | XMS_ITS | Clinical Summary ---
Author Organization [employer] Address [address] [facility] [place] [address] [place] [address] Care Team Providers Care Card Doffer Name Role Phone Fern Morley MD Primary Care Provider + Mike Mack Unavailable Unavailable Allergies Active Allergy Reactions Criticality Noted Date Comments Amlodipine Itching 08/28/2022 Amoxicillin 07/07/2013 Cinnamon Diarrhea 10/22/2013 Latex Rash,Swelling Low 10/03/2022 Penicillins High 10/03/2022 Other reaction(s): GI symptoms, NAUSEA,SEVERE DIARRHEA, VOMITTING, severe gi distress Shellfish-Derived Products 6 Other reaction(s): rash, once she fainted Medications glucose blood (FREESTYLE LITE) test strip Test blood sugar four times daily 022 Active calcium carbonate EX (Tums Extra Strength) 750 MG chewable tablet chew 1 tab po tid ac meals 022 Active cholecalciferol (Vitamin D-3) 50 MCG (1999 UT) capsule take 1 Capsule by Oral route every day 019 Active Diclofenac Sodium 1 % gel apply 2 gram by topical route 4 times every day to the affected area(s) 022 Active EPINEPHrine (Epipen) 0.3 MG/0.3ML injection syringe inject 0.3 Milligram by Intramuscular route every if needed 022 Active glucose-vitamin C 4-6 GM-MG oral gel Chew 4 tablets as needed for hypoglycemia, may repeat once after 15 minutes if needed Active FreeStyle lancets by Other route if needed. 28 gauge Use 1 each by as directed route 4 times every day Active Alcohol Swabs (Alcohol Prep) pads Use prior to BG testing Active Blood Pressure kit Take BP once daily and record readings Active Blood Glucose Monitoring Suppl (FreeStyle Lite) device Inject under the skin if needed. Freestyle lite meter kit Use as directed to test blood sugar Active sucralfate (Carafate) 1 g tablet Take 1 g by mouth at bedtime. 023 Active ARIPiprazole (Abilify) 5 MG tablet Take 1 tablet (5 mg) by mouth at bedtime. 90 tablet 1 024 Active hydrOXYzine HCl (Atarax) 10 MG tabletIndications :Bipolar affective disorder, current episode mixed, current episode severity unspecified (CMS/HCC) Take 1 tablet (10 mg) by mouth every 6 (six) hours if needed for anxiety. 90 tablet 2 024 Active melatonin 3 MG tablet Take 1 tablet (3 mg) by mouth if needed at bedtime for sleep. 30 tablet 11 024 Active lisinopril 10 MG tabletIndications :Primary hypertension TAKE 1 TABLET(10 MG) BY MOUTH IN THE MORNING 90 tablet 3 024 Active ibuprofen 800 MG tabletIndications :Primary osteoarthritis of both knees Take 1 tablet (800 mg) by mouth if needed in the morning, at noon, and at bedtime for fever, headaches or mild pain. 90 tablet 3 024 2024 Active fluticasone (Flonase) 50 MCG/ACT nasal spray Administer 1 spray into each nostril Once per day for 14 days. Shake gently. Before first use, prime pump. After use, clean tip and replace cap. 16 g Active esomeprazole (NexIUM) [address] capsuleIndication s:Esophagitis Take 1 capsule (40 mg) by mouth before breakfast. Do not open capsule. 90 capsule 024 2024 Active Ventolin HFA 108 (90 Base) MCG/ACT inhaler INHALE 2 PUFFS IF NEEDED IN THE MORNING, AT NOON, IN THE EVENING, AND AT BEDTIME FOR WHEEZING. 18 g 2 024 Active loratadine (Claritin) 10 MG tablet TAKE 1 TABLET BY MOUTH EVERY DAY NEEDED 90 tablet 2 025 Active topiramate (Topamax) 25 MG tablet Take 1 tablet (25 mg) by mouth at bedtime. 30 tablet 11 025 2025 Active loratadine (Claritin) 10 MG tablet take 1 tablet by oral route every day as needed 90 tablet 3 023 2024 Discontinued metFORMIN XR (Glucophage-XR) 500 MG 24 hr tablet TAKE 1 TABLET(500 MG) BY MOUTH DAILY WITH THE EVENING MEAL. DO NOT CRUSH, CHEW, OR SPLIT 90 tablet 024 2024 Discontinued(S terrance effects) Active Problems Problem Noted Date Diagnosed Date Encounter for cervical Pap smear with pelvic exa m 06/16/2024 Assessment & Plan (06/16/2024 10:27 AM EST): Pelvic exam today wnl FU pap smear results/HPV/STI testing and will call back PRN positive results or FU in 3 months. Pt feels safe at home, does not have a sexual partner. Counseled regarding STI prevention If today's pap smear/co testing is normal next one will be due in 2029. Screening examination for ST D (sexually transmitted disease) 06/16/2024 Assessment & Plan (06/16/2024 10:28 AM EST): Last sexual partner was 2 years ago, she wants to be STD tested. Bunion of left foot 06/16/2024 Arthritis of both hands 06/16/2024 Class 1 obesity due to exces s calories with serious comorbidity and body mass index (BMI) of 31.0 to 31.9 in adult 06/16/2024 Viral upper respiratory tract infection 02/21/20 24 Assessment & Plan (02/21/2024 10:12 AM EDT): Resolving , continue tylenol prn Take Flonase nasal daily Advised to take 1-2d off, she will call back prn for a sick leave. Screening mammogram for breast cancer 03/11/2023 Dietary counseling 03/11/2023 Exercise counseling 03/11/2023 Hair loss 03/11/2023 Assessment & Plan (03/11/2023 6:00 PM EDT): Most likely related to perimenopausal changes. I told her to avoid hair dyes, massages etc. Order labs, TSH with next set of labs. Primary hypertension 12/03/2022 Assessment & Plan (03/11/2023 5:56 PM EDT): Controlled. Compliant w/meds Continue lisinopril same dose. She's off amlodipine, last [facility] rx was On 08/2022 x 90d Counseled re low salt diet/increase moderate physical activity. Check home BP BIW and prn CP/VELASQUEZ/ANNE Non smoking patient. Assessment & Plan (12/03/2022 4:54 PM EDT): Uncontrolled Increase lisinopril to 10mg per day and fu bp with RN in 4 weeks and with me in 8 weeks Esophagitis 12/03/2022 Assessment & Plan (05/14/2024 7:56 PM EST): Advised to continue Esomeprazole until she sees GI. Will dc metformin due to potential side effects = esophagitis. Will fu DM/GI sxs in 1-2m Chronic superficial gastritis without bleeding 0 12/03/2022 Assessment & Plan (12/03/2022 4:53 PM EDT): FU with GI Counseled to quit smoking Use sucralfate Bipolar affective disorder, current episode mixe d 04/26/2022 Assessment & Plan (02/21/2024 10:11 AM EDT): Doing well on Abilify 5mg at bedtime even yovanny is very sleepy at times. Takes trazodone apparently form new MH provider and is doing well. Consider using Abilify 2.5mg at bedtime (instead of prn) due to somnolence Will check with re insurance issue, I gave her information re [facility] to make an appt for counseling and prescriber, she's not very excited about changing providers again. FU with me in 1m Assessment & Plan (10/01/2023 11:46 AM EDT): Plus PTSD. Clear history of mood swings: periods of depression with other separate periods of excess energy, decreased need for sleep, talking too fast, starting unrealistic projects. Trauma history with flashbacks and hallucinations. Previously reviewed with patient the effect of trauma, especially early life trauma, on mood and response to stress and unpredictable situations. She thinks this definitely applies to her situation. She stopped taking Risperidone due to Anxiety, antsy, couldn't stay still (I.e., akathisia). Seroquel caused excessive sedation, even at less than 25 mg at bedtime. Has also found Abilify 5 mg at bedtime is too sedating and has trouble getting up for work. But also still having difficulty sleeping some nights. Mood is still unstable. She can try taking Abilify 5 mg 1/2 tab at bedtime taken consistently every night to adjust to it, then increase to a full tab. Cont. Melatonin 3 mg at bedtime as needed, and Hydroxyzine 10 mg prn sleep or anxiety. We will not start any new medications at this time, since this provider is retiring. She plans to start working with agency prescriber. She will F/U with her therapist as usual. Any issues or concerns, call [facility]. All her questions were answered and I have wished her well. She agrees with the plan. Assessment & Plan (08/12/2023 10:04 AM EDT): Plus PTSD. Clear history of mood swings: periods of depression with other separate periods of excess energy, decreased need for sleep, talking too fast, starting unrealistic projects. Trauma history with flashbacks and hallucinations. Previously reviewed with patient the effect of trauma, especially early life trauma, on mood and response to stress and unpredictable situations. She thinks this definitely applies to her situation. She stopped taking Risperidone due to Anxiety, antsy, couldn't stay still (I.e., akathisia). Seroquel caused excessive sedation, even at less than 25 mg at bedtime. Has also found Abilify 5 mg makes her feel sleepy, so has only been taking a couple of times per week (in the morning). Even with this sporadic dosing thinks it might be helping her mood some. Reviewed that it really needed to be taken regularly to be effective. She will try taking the Abilify 5 mg every bedtime. Cont. Melatonin 3 mg at bedtime as needed. Previously reviewed sleep hygiene: No caffeine within 8-10 hours of bedtime. No electronics in bed. Daily fresh air and exercise. Will continue Hydroxyzine 10 mg prn panic attacks and/or bedtime. F/U with therapist as usual, and request referral to prescriber for after next (final) appt with me in 6-8 weeks. She agrees with the plan. Assessment & Plan (04/09/2023 12:30 PM EST): Plus PTSD. Clear history of mood swings: periods of depression with other separate periods of excess energy, decreased need for sleep, talking too fast, starting unrealistic projects. Trauma history with flashbacks and hallucinations. Previously reviewed with patient the effect of trauma, especially early life trauma, on mood and response to stress and unpredictable situations. She thinks this definitely applies to her situation. She stopped taking Risperidone due to Anxiety, antsy, couldn't stay still (I.e., akathisia). Seroquel caused excessive sedation, even at less than 25 mg at bedtime. Only tried Abilify 5 mg once. Today I attempted to reassure her that the Abilify should not be sedating, but could help her mood. If she doesn't tolerate that, there are few options that would be as easy to take with once daily dosing and few S/E's. Continue Melatonin 3 mg at bedtime. Previously reviewed sleep hygiene: No caffeine within 8-10 hours of bedtime. No electronics in bed. Daily fresh air and exercise. Will continue Hydroxyzine 10 mg prn panic attacks and/or bedtime. F/U with therapist. On 02/07/2023 provider informed patient that I would be retiring within the next year or so, and we would try to get her stabilized on medication before that and come up with a transition plan for continued med mgt. F/U with me in 6 weeks. She agrees with the plan. Assessment & Plan (03/11/2023 5:59 PM EDT): Not taking meds due to hx somnolence with previous ones. I went over her meds and told her to take Abilify only and fu with Mike Mack next month. We discussed about coping mechanisms with stress/anxiety. She feels safe at home Assessment & Plan (02/07/2023 11:53 AM EDT): Plus PTSD. Clear history of mood swings: periods of depression with other separate periods of excess energy, decreased need for sleep, talking too fast, starting unrealistic projects. Trauma history with flashbacks and hallucinations. Previously reviewed with patient the effect of trauma, especially early life trauma, on mood and response to stress and unpredictable situations. She thinks this definitely applies to her situation. She stopped taking Risperidone due to Anxiety, antsy, couldn't stay still (I.e., akathisia). Seroquel has caused excessive sedation, even at less than 25 mg at bedtime. Will instead try Abilify 5 mg once daily. Melatonin 3 mg at bedtime. Reviewed sleep hygiene: No caffeine within 8-10 hours of bedtime. No electronics in bed. Daily fresh air and exercise. Will continue Hydroxyzine 10 mg prn panic attacks and/or bedtime. F/U with therapist. Today 02/07/2023 provider informed patient that I would be retiring within the next year or so, and we would try to get her stabilized on medication before that and come up with a transition plan for continued med mgt. Meanwhile, F/U with me in 2 months. She agrees with the plan. Assessment & Plan (01/07/2023 12:31 PM EDT): Plus PTSD. Clear history of mood swings: periods of depression with other separate periods of excess energy, decreased need for sleep, talking too fast, starting unrealistic projects. Trauma history with flashbacks and hallucinations. Previously reviewed with patient the effect of trauma, especially early life trauma, on mood and response to stress and unpredictable situations. She thinks this definitely applies to her situation. She stopped taking Risperidone due to Anxiety, antsy, couldn't stay still (I.e., akathisia). She tried the Seroquel 25 mg once but found it made her too drowsy for work the next day. She is willing to try again on a day she won't need to wake up early for work. Pt works second shift, suggested relaxation routine after work: Shower, warm non-caffeinated beverage with a small snack, no electronics in bed. Take Seroquel 1/4 or 1/2 tab 15 minutes before bedtime. Can gradually increase to 1 full tab as tolerated. Will continue Hydroxyzine 10 mg prn panic attacks and/or bedtime. F/U with therapist. F/U with me in 1 month. She agrees with the plan. Assessment & Plan (11/26/2022 12:00 PM EDT): Plus PTSD. Clear history of mood swings: periods of depression with other separate periods of excess energy, decreased need for sleep, talking too fast, starting unrealistic projects. Trauma history with flashbacks and hallucinations. Previously reviewed with patient the effect of trauma, especially early life trauma, on mood and response to stress and unpredictable situations. She thinks this definitely applies to her situation. She stopped taking Risperidone due to Anxiety, antsy, couldn't stay still (I.e., akathisia). Today she says she is not sleeping well, mood swings are not controlled, and having some mild auditory and visual hallucinations. Will start Seroquel 25 mg at bedtime. Will continue Hydroxyzine 10 mg prn panic attacks and/or bedtime. F/U with therapist. F/U with me in 1 month. She agrees with the plan. Assessment & Plan (09/25/2022 10:49 AM EDT): Plus PTSD. Clear history of mood swings: periods of depression with other separate periods of excess energy, decreased need for sleep, talking too fast, starting unrealistic projects. Trauma history with flashbacks and hallucinations. Previously reviewed with patient the effect of trauma, especially early life trauma, on mood and response to stress and unpredictable situations. She thinks this definitely applies to her situation. She stopped taking Risperidone due to Anxiety, antsy, couldn't stay still (I.e., akathisia). Discussed option of resuming at lower dose vs. Trying a different medicaiton, but she prefers to remain off meds at this time. Will continue Hydroxyzine 10 mg prn panic attacks and/or bedtime. F/U with therapist. F/U with me in 2 months. She agrees with the plan. Assessment & Plan (07/27/2022 1:29 PM EDT): Pt currently off medications for the past 2-3 weeks. discussed with her regarding importance of taking medications as prescribed and address this issue next month with psychopharmacology clinic pt with no evidence of hypomania, hallucinations. Assessment & Plan (07/26/2022 10:48 AM EDT): Plus PTSD. Clear history of mood swings: periods of depression with other separate periods of excess energy, decreased need for sleep, talking too fast, starting unrealistic projects. Trauma history with flashbacks and hallucinations. Previously reviewed with patient the effect of trauma, especially early life trauma, on mood and response to stress and unpredictable situations. She thinks this definitely applies to her situation. Hydroxyzine 10 mg makes her feel sleepy, so will reserve for severe panic attacks and/or bedtime. May also try taking 1/2 tab. Continue Risperidone 3 mg at bedtime. F/U with therapist. F/U with me in 2 months. She agrees with the plan. Assessment & Plan (05/29/2022 10:30 AM EST): Plus PTSD. Clear history of mood swings: periods of depression with other separate periods of excess energy, decreased need for sleep, talking too fast, starting unrealistic projects. Trauma history with flashbacks and hallucinations. Previously reviewed with patient the effect of trauma, especially early life trauma, on mood and response to stress and unpredictable situations. She thinks this definitely applies to her situation. Hydroxyzine 10 mg makes her feel sleepy, so will reserve for severe panic attacks and/or bedtime. May also try taking 1/2 tab. She elected not to start Clonidine 0.1 mg BID r/t concern about taking a medication indicated for blood pressure. Will continue other medications. F/U with therapist. F/U with me in 6 weeks. She agrees with the plan. Assessment & Plan (04/26/2022 9:55 AM EST): Plus PTSD. Clear history of mood swings: periods of depression with other separate periods of excess energy, decreased need for sleep, talking too fast, starting unrealistic projects. Trauma history with flashbacks and hallucinations. Reviewed with patient the effect of trauma, especially early life trauma, on mood and response to stress and unpredictable situations. She thinks this definitely applies to her situation. Hydroxyzine 10 mg makes her feel sleepy, so will reserve for severe panic attacks and/or bedtime. May also try taking 1/2 tab. Will start Clonidine 0.1 mg BID, cautioned re dizziness. Continue Risperidone 3 mg at bedtime. Gave pt names of some apps to help with anxiety/mindfulness. F/U with therapist. F/U with me in approx 1 month. She agrees with the plan. Amenorrhea 04/14/2022 Female stress incontinence 04/14/2022 Gastroesophageal reflux disease 04/14/2022 Assessment & Plan (02/21/2024 9:44 AM EDT): Seen by GI, on Esomeprazole, doing better than on Protonix. Will send rx esomeprazole to our pharmacy and fu next mo DC metformin and fu GI sxs next month Perimenopause 04/14/2022 Primary osteoarthritis of both knees 04/14/2022 Psychoactive substance abuse 04/14/2022 Traumatic rotator cuff tear 04/14/2022 Type 2 diabetes mellitus without complication Assessment & Plan (05/14/2024 7:54 PM EST): Controlled. A1c is at goal. Will hold metformin x 1mo due to side effects and that A1c is optimal. I will fu in 4-5w, she will call back MARION if BS are persistently above 200s, may switch to bid rx if needed. Counseled re more frequent low calorie/carb meals. Check fgstk 1x daily Encouraged physical activity as tolerated. FU in 2 months. Assessment & Plan (03/11/2023 5:57 PM EDT): Controlled. A1c is at goal. Continue on Metformin XR 500mg/d only Counseled re more frequent low calorie/carb meals. Check fgstk 1x daily Encouraged physical activity as tolerated. FU in 3 months. Assessment & Plan (12/03/2022 4:54 PM EDT): Controlled. Tolerates metformin well continue metformin XR 500mg per day Counseled re more frequent low calorie/carb meals. Encouraged physical activity as tolerated. Refer to dietitian FU with me in 3 months Assessment & Plan (07/27/2022 1:23 PM EDT): Controlled. A1C is at goal. Switch to metformin 500mg ER once a day since patient is taking metformin once a day only call back for refill if tolerated, otherwise she will taking metformin IR once a day only Counseled re more frequent low calorie/carb meals. Check fgstk daily Encouraged physical activity as tolerated. Order labs. Assessment & Plan (04/25/2022 10:17 PM EST): Most likely controlled Continue low dose Metformin and check labs prio to next appt w me in 3m Counseled re more frequent low calorie/carb meals. Check fgstk 1xdaily Encouraged physical activity as tolerated. Current smoker 04/14/2022 Food allergy 04/14/2022 History of surgery 04/14/2022 Vitamin D deficiency 01/12/2020 Allergic rhinitis 11/24/2015 Heartburn 11/24/2015 Mild intermittent asthma 11/24/2015 Resolved Problems Problem Noted Date Diagnosed Date Resolved Date Elevated blood pressure reading 07/27/2022 03/11/2023 Assessment & Plan (07/27/2022 1:29 PM EDT): Check BP at home twice per week and FU at next appointment Counseled re low salt diet/increase moderate physical activity. Check home BP BIW and prn CP/VELASQUEZ/ANNE Non smoking patient. Bipolar disorder 04/14/2022 04/26/2022 Assessment & Plan (04/25/2022 10:16 PM EST): Fairly controlled, continue Risperdal Continue to fu with [facility] D/w patient re relaxation techniques including distraction, breathing exercises. She feels safe at home and is able to contract for safety Encounters Date Type Department Care Team Description 06/16/2024 9:15 AM EST Procedure Visit [facility] [address] [place] [address] Fern Morley MD Encounter for cervical Pap smear with pelvic exam (Primary Dx); Type 2 diabetes mellitus without complication, without long-term current use of insulin ([facility]); Screening examination for STD (sexually transmitted disease); Bunion of left foot; Arthritis of both hands; Gastroesophageal reflux disease with esophagitis, unspecified whether hemorrhage; Class 1 obesity due to excess calories with serious comorbidity and body mass index (BMI) of 31.0 to 31.9 in adult; Dietary counseling; Exercise counseling 06/16/2024 Travel 06/15/2024 Telephone [facility] [address] [place] [address] Flora Garza MA Chart Prep 05/18/2024 Refill [facility] [address] [place] [address] Fern Morley MD 05/09/2024 Refill [facility] [address] [place] [id number] Fern Morley MD 05/08/2024 Refill [facility] [address] [place] [address] Fern Morley MD Primary osteoarthritis of both knees 04/28/2024 Telephone [facility] [address] [place] [id number] Fern Morley MD June04/15/2024 Telephone [facility] [address] [place] [address] [phone] Fern Morley MD No Show 04/14/2024 Telephone [facility] [address] [place] [address] Vivi Wheat MA Chart prep from Last 3 Months Immunizations Name Administration Dates Next Due Influenza injectable quadriv alent IIV4 with preservative 01/31/2018 Influenza, Split (incl. purified surface antigen ) 07/07/2013 MMR 07/09/2019 Pfizer Covid-19 Vaccine 12+ 03/22/2021, 1 Pneumococcal Polysaccharide PPSV23 01/09/2022 TD (adult), 2 Lf tetanus tox oid, preservative free, adsorbed 07/29/2004 Tdap 07/07/2013 Varicella 07/26/2022,06/28/2022 Family History Medical History Relation Name Comments Kidney cancer Brother Heart disease Father Hypertension Father Coronary artery disease Father's Brother Stroke Father's Brother Coronary artery disease Father's Sister Bipolar disorder Mother Diabetes Mother Cancer Paternal Grandfather Mouth a nd Throat Hypertension Paternal Grandfather Coronary artery disease Paternal Grandmother Relation Name Status Comments Brother Father Father's Brother Father's Sister Mother Paternal Grandfather Paternal Grandmother Social History Tobacco Use Types Packs/Day Years Used Date Smoking Tobacco: Every Day Cigarettes Smokeless Tobacco: Never Tobacco Cessation:Ready to Q uit: Not Asked; Counseling Given: Not Answered Alcohol Use Standard Drinks/Week Comments Never 0 [...] Orientation Straight 03/12/2022 10 :14 AM EDT Last Filed Vital Signs Vital Sign Reading Time Taken Comments Blood Pressure 100/66 06/16/2024 9:19 AM EST Pulse 84 06/16/2024 9:19 AM EST Temperature 36.7 ??C (98 ??F) 06/16/2024 9:19 AM EST Respiratory Rate 20 06/16/2024 9:19 AM EST Oxygen Saturation 98% 02/21/2024 9:06 AM EDT Inhaled Oxygen Concentration - - Weight 74.9 kg (165 lb 2 oz) 06/16/2024 9:19 AM EST Height 154.9 cm (5' 1 ) 06/16/2024 9:19 AM EST Body Mass Index 31.2 06/16/2024 9:19 AM EST Plan of Treatment Upcoming Encounters Date Type Department Care Team (Late st Contact Info) Description 09/09/2024 9:30 AM EDT Office Visit [facility] [address] [place] [address] Jonathan, Majo, OD [address] [place] [address] Health Maintenance Due Date Last Done Comments CT Colonography 1972 FIT DNA/Cologuard 1972 FIT 1972 FOBT 1972 Sigmoidoscopy 1972 Diabetes: Foot Exam 1982 Alcohol/Substance Use Screening 1984 Family Planning (PISQ) 08/02/1987 Hepatitis C Screening 1990 Hepatitis A Vaccines (1 of 2 - Risk 2-dose series) 08/02/1991 Hepatitis B Vaccines (1 of 3 - 19+ 3-dose series) 08/02/1991 Zoster Vaccines (1 of 2) 09/20/2022 Lipid Panel 10/06/2022 10/06/2021, 09/11, 11/23/2020 Diabetes: Urine Protein Screening 10/10/2022 10/10/2021 Pneumococcal Vaccine: 50+ Years (2 of 2 - PCV) 01/09/2023 01/09/2022 DTaP/Tdap/Td Vaccines (2 - Td or Tdap) 07/07/2023 07/07/2013, 07/29/2004 SDOH Screening 07/28/2023 07/27/2022 COVID-19 Vaccine ( season) 2024 03/22/2021, 03/01/2021 Influenza Vaccine (#1) 2024 01/31/2018, 2013 Diabetes: Hemoglobin A1C 08/21/2024 024, 03/11/2023, 07/27/2022, Additional history exists Depression Screening 09/30/2024 10/01/2023, 10/01/19 24 Eye Exam 10/17/2024 10/17/2022, 0611/2022, 10/17/2022, Additional history exists Mammogram 03/11/2025 03/11/2023, 03/10/2018 Tobacco Screening 06/16/2025 06/16/2024 Cervical Cancer Screening 01/25/2026 HPV/Cotest 01/25/2026 01/25/2021, 06/13, 02/21/2017 Pap Smear 01/25/2026 01/25/2021 Colonoscopy 10/09/2032 10/09/2022 Colorectal Cancer Screening 10/09/2032 RSV Patients and Patients Aged 60 years or older (1 - 1-dose 75+ series) 08/02/2047 HIV Screening Completed 06/25/2019, 06/25/2019 HIB Vaccines Aged Out No longer eligi ble based on patient's age to complete this topic HPV Vaccines Aged Out No longer eligi ble based on patient's age to complete this topic IPV Vaccines Aged Out No longer eligi ble based on patient's age to complete this topic Meningococcal Vaccine Aged Out No madelyn nicko eligible based on patient's age to complete this topic RSV under 20 months Aged Out No longe r eligible based on patient's age to complete this topic Rotavirus Vaccines Aged Out No longer eligible based on patient's age to complete this topic Procedures Procedure Name Priority Date/Time Associated Diagnosis Comments POCT GLYCATED HEMOGLOBIN, TOTAL Routine 02/21/2024 9:20 AM EDT Type 2 diabetes mellitus without complication, without long-term current use of insulin ([facility]) BI MAMMOGRAM SCREENING BILATERAL Routine 03/11/2023 Screening mammogram for breast cancer HM COLONOSCOPY Routine 10/09/2022 ALBUMIN, RANDOM URINE W/CREATININE Routine 10/10/2021 3:43 PM EDT LIPID PANEL, STANDARD Routine 10/06/2021 10:33 AM EDT HPV MRNA E6/E7 Routine 01/25/2021 12:00 AM EDT THINPREP PAP Routine 01/25/2021 12:00 AM EDT ZZZ HISTORICAL HIV AB/AG Routine 06/25/2019 11:45 AM EST from Last 3 Months or Most Recently Relevant to Health Maintenance Results * (ABNORMAL) POCT HGB A1C (02/21/2024 9:20 AM EDT) Hemoglobin A1C 6.1(A) 4.0 - 6.0 % QC Media Lot # [id number] Lot# Expiration Date 810 Blood 02/21/2024 9:20 AM EDT Fern Morley MD POINT OF CARE TEST ENTER /EDIT ORDERABLES Final Result * BI Mammogram Screening Bilateral (03/11/2023) Anatomical Region Laterality Modality Breast Bilateral Mammography Fern Morley MD IMG BI PROCEDURES Final Result * Hm Colonoscopy (10/09/2022) Colonoscopy Normal Normal [facility] 10/09/2022 Fern Morley MD HEALTH MAINTENANCE Final Result [facility] [address] [place] [phone] * (ABNORMAL) ALBUMIN, RANDOM URINE W/CREATININE (10/10/2021 3:43 PM EDT) Microalbumin Urine 1.8 See Note: mg/dL [facility] Comment: Reference Range: ?? Reference Range Not established Microalb/Creat Ratio 5 <30 mcg/mg creat [facility] Comment: ?? The ADA defines abnormalities in albumin excretion as follows: ?? Albuminuria Category ?Result (mcg/mg creatinine) ?? Normal to Mildly increased ?? <30 Moderately increased ? 30-299 ?? Severely increased ? > OR = 300 ?? The ADA recommends that at least two of three specimens collected within a 3-6 month period be abnormal before considering a patient to be within a diagnostic category. Creatinine, Urine 366(H) 20 - 275 mg/dL [facility] Comment: Verified by repeat analysis. ?? 10/10/2021 3:43 PM EDT us Fern Morley MD LAB URINE ORDERABLES Fin al Result [facility] [address] * (ABNORMAL) LIPID PANEL, STANDARD (10/06/2021 10:33 AM EDT) Chol/HDLC Ratio 3.5 <5.0 (calc) [facility] Cholesterol, Total 177 <200 mg/dL [facility] HDL Cholesterol 51 > OR = 50 mg/dL [facility] LDL Cholesterol 104(H) mg/dL (calc) [facility] Comment: Reference range: <100 ?? Desirable range <100 mg/dL for primary prevention; ?? <70 mg/dL for patients with CHD or diabetic patients ?? with > or = 2 CHD risk factors. ?? LDL-C is now calculated using the Aravind ?? calculation, which is a validated novel method providing ?? better accuracy than the Friedewald equation in the ?? estimation of LDL-C. ?? Jeff ASHRAF et al. FALL[place]. 2013;310(19): 3667-6988 ?? (http://education.Catarizm/faq/DUC894) Non-HDL Cholesterol 126 <130 mg/dL (calc) [facility] Comment: For patients with diabetes plus 1 major ASCVD risk ?? factor, treating to a non-HDL-C goal of <100 mg/dL ?? (LDL-C of <70 mg/dL) is considered a therapeutic ?? option. Triglycerides 127 <150 mg/dL [facility] 10/06/2021 10:3 3 AM EDT Fern Morley MD LAB BLOOD ORDERABLES Fin al Result Performing Organization Address [facility] de Phone Number [facility] [address] [place] [address], * THINPREP PAP (01/25/2021 12:00 AM EDT) Clinical Information: None given [facility] COMMENT SEE COMMENT [facility] Comment: EXPLANATORY NOTE: ? The Pap is a screening test for cervical cancer. It is ?? not a diagnostic test and is subject to false negative ?? and false positive results. It is most reliable when a ?? satisfactory sample, regularly obtained, is submitted ?? with relevant clinical findings and history, and when ?? the Pap result is evaluated along with historic and ?? current clinical information. ?? Hand Laster : SEE COMMENT [facility] Comment: YP, CT(ASCP) CT screening location: [address] ??[id number] Interpretation/R esult: Negative for intraepithelial lesion or malignancy. [facility] LMP: NONE GIVEN [facility] Prev. BX: NONE [facility]IVEN [facility] Prev. PAP: NONE GIVEN [facility] SOURCE: None given [facility] Statement Of Adequacy: SEE COMMENT [facility] Comment: Satisfactory for evaluation. Endocervical/transformation zone component absent. Age and/or menstrual status not provided 01/25/2021 us Fern Morley MD LAB PATHOLOGY ORDERABLES Final Result Performing Organization Address [facility] Co de Phone Number [facility] [address] * HPV mRNA E6/E7 (01/25/2021 12:00 AM EDT) Pathologist [facility] HPV nRNA E6/E7 Not Detected Not Detected [facility] Comment: Methodology: Paint Dipper-Mediated Amplification This assay detects E6/E7 viral messenger RNA (mRNA) from 14 high-risk HPV types (16,18,31,33,35,39,45,51,52,56,58,59,66,68). ? The analytical performance characteristics of this assay have been determined by [employer]. The modifications have not been cleared or approved by the FDA. This assay has been validated pursuant to the CLIA regulations and is used for clinical purposes. ?? For additional information, please refer to http://education.luma-id/faq/UHS833y0 (This link if provided for information/ educational purposes only.) 01/25/2021 Fern Morley MD LAB BLOOD ORDERABLES Fin al Result [facility] [address] * HIV AB/AG (06/25/2019 11:45 AM EST) [facility] HIV AG/AB NONREACTIVE NR [facility] Comment: HIV-1 p24 Ag and/or HIV-1/HIV-2 Ab not detected. ?? A test result that is nonreactive does not exclude the possibility of exposure to or infection with HIV-1 and/or HIV-2. Nonreactive results in this assay for individuals with prior exposure to HIV-1 and/or HIV-2 may be due to antigen and antibody levels that are below the limit of detection of this assay. ?? The [employer] Pack [employer] Operator HIV Ag/Ab Combo assay result and supplemental assay results should be interpreted in conjunction with the patient's clinical presentation, history and other laboratory results. ??If the results are inconsistent with clinical evidence, additional testing is suggested to confirm the result. 06/25/2019 11:4 5 AM EST Ariane Francis DIRECTOR OF HOME CARE HOSPICE HISTORICAL/NON ORDERABLE LABS Fi nal Result [facility] [address] from Last 3 Months or Most Recently Relevant to Health Maintenance Insurance [facility] Care Teams Card Doffer Relationship Specialty Start Date End Date Fern Morley MD [address] [place] [phone] PCP - General Family Medicine 06/28/20 Mike Mack FNP [address] [place] [address] Nurse Practitioner Family Medicine 04/03/23
--- OUTSIDE RECORDS SUMMARY | 2024-06-16 10:44 | XMS_ITS | Encounter Summary ---
Author Organization [employer] Address [address] [facility] 7t [place] [address] Care Team Providers Care Projects Manager Name Role Phone Fern Morley MD Primary Care Provider + Mike Mack Unavailable Unavailable Reason for Visit * Reason Comments Gynecologic Exam Encounter Details Date Type Department Care Team (Latest Contact Info) Description 06/16/2024 9:15 AM EST Procedure Visit [facility] [address] [place], [place] [phone] Fern Morley MD [address] [place], [place] [phone] Encounter for cervical Pap smear with pelvic exam (Primary Dx); Type 2 diabetes mellitus without complication, without long-term current use of insulin ([facility]); Screening examination for STD (sexually transmitted disease); Bunion of left foot; Arthritis of both hands; Gastroesophageal reflux disease with esophagitis, unspecified whether hemorrhage; Class 1 obesity due to excess calories with serious comorbidity and body mass index (BMI) of 31.0 to 31.9 in adult; Dietary counseling; Exercise counseling Social History Tobacco Use Types Packs/Day Years [...] AM EDT documented as of this encounter Last Filed Vital Signs Vital Sign Reading Time Taken Comments Blood Pressure 100/66 06/16/2024 9:19 AM EST Pulse 84 06/16/2024 9:19 AM EST Temperature 36.7 ??C (98 ??F) 06/16/2024 9:19 AM EST Respiratory Rate 20 06/16/2024 9:19 AM EST Oxygen Saturation - - Inhaled Oxygen Concentration - - Weight 74.9 kg (165 lb 2 oz) 06/16/2024 9:19 AM EST Height 154.9 cm (5' 1 ) 06/16/2024 9:19 AM EST Body Mass Index 31.2 06/16/2024 9:19 AM EST documented in this encounter Miscellaneous Notes * Assessment & Plan Note - Dilia Chris - 06/16/2024 10:28 AM ESTAssociated Problem(s): Screening examination for STD (sexually transmitted disease) Last sexual partner was 2 years ago, she wants to be STD tested. * Assessment & Plan Note - Dilia Chris - 06/16/2024 9:27 AM ESTAssociated Problem(s): Encounter for cervical Pap smear with pelvic exam Pelvic exam today wnl FU pap smear results/HPV/STI testing and will call back PRN positive results or FU in 3 months. Pt feels safe at home, does not have a sexual partner. Counseled regarding STI prevention If today's pap smear/co testing is normal next one will be due in 2029. documented in this encounter Plan of Treatment Upcoming Encounters Date Type Department Care Team (Late st Contact Info) Description 09/09/2024 9:30 AM EDT Office Visit [facility] [address] [place] [address] Jonathan, Majo, OD [address] [place] [address] Scheduled Orders Name Type Priority Associated Diagnoses Order Schedule Hepatitis Panel, General Lab Routine Screening examination for STD (sexually transmitted disease) Expected: 06/16/2024 (Approximate), Expires: 06/16/2025 HIV-1/2 Antigen and Antibodies, Fourth Generation, with Reflexes Lab Routine Screening examination for STD (sexually transmitted disease) Expected: 06/16/2024 (Approximate), Expires: 06/16/2025 Syphilis Screen Lab Routine Screening examination for STD (sexually transmitted disease) Expected: 06/16/2024 (Approximate), Expires: 06/16/2025 Pap Smear Pathology and Cytology Routine Encounter for cervical Pap smear with pelvic exam Ordered: 06/16/2024 Bacterial Vaginosis Microbiology Routine Encounter for cervical Pap smear with pelvic exam Expected: 06/16/2024 (Approximate), Expires: 06/16/2025 Chlamydia/N. Gonorrhoeae RNA, TMA, Urogenitial Microbiology Routine Encounter for cervical Pap smear with pelvic exam Ordered: 06/16/2024 documented as of this encounter Visit Diagnoses Diagnosis Encounter for cervical Pap smear with pelvic exam- Primary Type 2 diabetes mellitus without complication, without long-term current use of insulin ([facility]) Screening examination for STD (sexually transmitted disease) Bunion of left foot Bunion Arthritis of both hands Gastroesophageal reflux disease with esophagitis, unspecified whether hemorrhage Class 1 obesity due to excess calories with serious comorbidity and body mass index (BMI) of 31.0 to 31.9 in adult Dietary counseling Dietary surveillance and counseling Exercise counseling documented in this encounter Additional Health Concerns Assessment Noted Time PHQ-9 Depression Total Score: 6 10/01/19 24 10:52 AM EDT documented as of this encounter Care Teams Projects Manager Relationship Specialty Start Date End Date Fern Morley MD [address] [place] [phone] PCP - General Family Medicine 06/28/20 Mike Mack FNP [address] [place] [phone] Nurse Practitioner Family Medicine 04/03/23 documented as of this encounter
--- OUTSIDE RECORDS SUMMARY | 2024-06-16 10:44 | XMS_ITS | Encounter Summary ---
Author Organization [employer] Address [address] [facility] 7t [place] [address] Care Team Providers Care Microbiology Teacher Name Role Phone Fern Morley MD Primary Care Provider + Mike Mack Unavailable Unavailable Reason for Visit * Reason Comments Med Refill Encounter Details Date Type Department Care Team ([facility] st Contact Info) Description 05/18/2024 Refill [facility] [address] [place], [place] [phone] Fern Morley MD [address] [place] [address] Social History Tobacco Use Types Packs/Day Years [...] your housing situation today? I have amanuel ruyb 03/08/[address] you li [...] AM EDT documented as of this encounter Plan of Treatment Upcoming Encounters Date Type Department Care Team (Late st Contact Info) Description 09/09/2024 9:30 AM EDT Office Visit [facility] [address] [place] [address] Majo Castillo, OD [address] [place] [address] documented as of this encounter Visit Diagnoses Not on filedocumented in this encounter Additional Health Concerns Assessment Noted Time PHQ-9 Depression Total Score: 6 10/01/19 24 10:52 AM EDT documented as of this encounter Care Teams Microbiology Teacher Relationship Specialty Start Date End Date Fern Morley MD [address] [place] [address] PCP - General Family Medicine 06/28/20 Mike Mack FNP [address] [place] [address] Nurse Practitioner Family Medicine 04/03/23 documented as of this encounter
--- OUTSIDE RECORDS SUMMARY | 2024-06-16 10:44 | XMS_ITS | Encounter Summary ---
Author Organization [email or web address] Address [address] [facility] 7t [place] [address] Care Team Providers Care Blast Hole Driller Name Role Phone Fern Morley MD Primary Care Provider + Mike Mack Unavailable Unavailable Reason for Visit * Reason Comments Med Refill Encounter Details Date Type Department Care Team ([facility] st Contact Info) Description 05/08/2024 Refill [facility] [address] [place], [place] [phone] Fern Morley MD [address] [place] [address] Primary osteoarthritis of both knees Social History Tobacco Use Types Packs/Day Years [...] enough money to get more: Never True 10/ Transportation Answer Date Recorded In the past [...] Description 09/09/2024 9:30 AM EDT Office Visit [facility] [address] [place] [address] Majo Castillo, OD [address] [place] [address] documented as of this encounter Visit Diagnoses Diagnosis Primary osteoarthritis of both knees documented in this encounter Additional Health Concerns Assessment Noted Time PHQ-9 Depression Total Score: 6 10/01/19 24 10:52 AM EDT documented as of this encounter Care Teams Blast Hole Driller Relationship Specialty Start Date End Date Fern Morley MD [address] [place] [address] PCP - General Family Medicine 06/28/20 Mike Mack FNP [address] [place] [address] Nurse Practitioner Family Medicine 04/03/23 documented as of this encounter
--- OUTSIDE RECORDS SUMMARY | 2024-06-16 10:44 | XMS_ITS | Encounter Summary ---
Author Organization [employer] Address [address] [facility] 7t [place] [address] Care Team Providers Care Tunnel Kiln Firer Name Role Phone Fern Morley MD Primary Care Provider + Mike Mack Unavailable Unavailable Encounter Details Date Type Department Care Team (Latest Contact Info) Description 06/16/2024 Travel Social History Tobacco Use Types Packs/Day Years [...] is your housing situation today? I have amanuelaleja ruby 03/08/[address] you [...] Description 09/09/2024 9:30 AM EDT Office Visit [facility] [address] [place] [address] Majo Castillo, OD [address] [place] [address] documented as of this encounter Visit Diagnoses Not on filedocumented in this encounter Additional Health Concerns Assessment Noted Time PHQ-9 Depression Total Score: 6 10/01/19 24 10:52 AM EDT documented as of this encounter Care Teams Tunnel Kiln Firer Relationship Specialty Start Date End Date Fern Morley MD [address] [place] [address] PCP - General Family Medicine 06/28/20 Mike Mack FNP [address] [place] [address] Nurse Practitioner Family Medicine 04/03/23 documented as of this encounter
--- OUTSIDE RECORDS SUMMARY | 2024-06-16 10:44 | XMS_ITS | Encounter Summary ---
Author Organization [employer] Address [address] [facility] [address]t [place] [address] Care Team Providers Care Buckle Attaching Machine Operator Name Role Phone Fern Morley MD Primary Care Provider + Mike Mack Unavailable Unavailable Reason for Visit * Reason Comments Med Refill Encounter Details Date Type Department Care Team ([facility] st Contact Info) Description 06/17/2023 Refill [facility] [address] [place], [place] [phone] Fern Morley MD [address] [place] [address] Social History Tobacco Use Types Packs/Day Years Used Date Smoking Tobacco: Every Day Cigarettes Smokeless Tobacco: Never Alcohol Use Standard Drinks/Week Comments Never 0 (1 standard drink = 0.6 oz pur e alcohol) Depression Answer Date Recorded Patient Health Questionnaire-9 Score 10 04/09/2023 Patient Health Questionnaire-9 Score 10 04/09/2023 Last PHQ-9: Questionnaire Data Not on file 1 06/09/2022 Housing Stability Answer Date Recorded What is [...] Answer Date Recorded Patient Health Questionnaire-2 Score 2 04/09/2023 Comments Unknown Sex and Gender Information Value Date Recorded Sex Assigned at Female 03/12/2022 10:14 AM EDT Legal Sex Female 10:14 AM EDT Gender Identity Female 03/12/2022 10:14 AM EDT Sexual Orientation Straight 03/12/2022 10 :14 AM EDT documented as of this encounter Plan of Treatment Upcoming Encounters Date Type Department Care Team (Late st Contact Info) Description 09/09/2024 9:30 AM EDT Office Visit [facility] [address] [place] [address] Majo Castillo, OD [address] [place] [address] documented as of this encounter Visit Diagnoses Not on filedocumented in this encounter Additional Health Concerns Assessment Noted Time PHQ-9 Depression Total Score: 10 023 11:14 AM EST documented as of this encounter Care Teams Buckle Attaching Machine Operator Relationship Specialty Start Date End Date Fern Morley MD [address] [place] [address] PCP - General Family Medicine 06/28/20 Mike Mack FNP [address] [place] [address] Nurse Practitioner Family Medicine 04/03/23 documented as of this encounter
[2024-06-16 11:28] LABS: MANUAL DIFF FLAG NO
[2024-06-16 11:46] LABS: Basophils Percent Auto 0.6 % (0-2); Eosinophils Absolute Auto 0.3 X10*3/uL (0.0-0.4); Eosinophils Percent Auto 3.8 % (0-4); Hematocrit 43.1 % (37.0-47.0); Hemoglobin 14.4 g/dl (12.0-16.0); Imm Gran Abs Auto 0.01 X10*3/uL (0.00-0.03); Imm Gran Pct Auto 0.1 % (0.0-0.4); Lymphocytes Percent Auto 29.3 % (20-40); Mean Corpuscular HGB Conc 33.4 g/dl (31.0-35.0); Mean Corpuscular Hemoglobin 26.4 pg (27.0-33.0); Mean Corpuscular Volume 79.1 fL (80.0-98.0); Mean Platelet Volume 11.5 fL (9.4-12.3); Monocytes Absolute Auto 0.4 X10*3/uL (0.1-1.2); Neutrophils Absolute Auto 4.1 x10*3/uL (2.0-8.3); Neutrophils Percent Auto 60.2 % (45-73); Platelet Count 275 X10*3/uL (160-400); Red Blood Count 5.45 X10*6/uL (4.20-5.50); Red Cell Distribution Width 13.4 % (11.0-16.0); White Blood Count 6.9 X10*3/uL (4.8-10.8)
[2024-06-16 12:00] LABS: Anion Gap 14 (12-20); Blood Urea Nitrogen 13 mg/dL (9-16); Calcium 9.3 mg/dL (8.4-10.2); Carbon Dioxide 21 mmol/L (22-29); Chloride 108 mmol/L (96-108); Cholesterol 183 mg/dL (<200); Estimated Glomerular Filt Rate > 60; Glucose Random 113 mg/dL (60-115); HDL Cholesterol 53 mg/dL (>40); LDL Cholesterol Calculated 112 mg/dL (<100); Sodium 139 mmol/L (135-145); Triglycerides 90 mg/dL (<150)
[2024-06-16 12:16] LABS: HBS Num1 15.74 mIU/mL (0-7.99); HBc Num1 0.16 S/CO (0.00-0.79); HBsAGNum1 0.38 S/CO (0.00-0.99); HIV AB/AG Nonreactive (Nonreactive); HIV Num 1 0.05 S/CO (0.00-0.99); Hepatitis A Antibody IgM 0.19 Index (0-0.79); Hepatitis B Core Antibody Nonreactive (Nonreactive); Hepatitis B Surface Antigen Negative (Negative); Syphilis Screen Nonreactive (Nonreactive); TSH reflex Free T4 0.52 uIU/mL (0.32-4.0); Vitamin D 25-OH Total 52.7 ng/mL (>30); ~HepC Num1 0.18 S/CO (0.00-0.79); ~Hepatitis A Antibody IgM Nonreactive (Nonreactive); ~Hepatitis B Surface Antibody REACTIVE (Nonreactive); ~Hepatitis C Antibody Nonreactive (Nonreactive)
[2024-06-16 12:29] LABS: Creatinine Urine 246.37 mg/dL
[2024-06-16 13:01] LABS: CT PCR NOT DETECTED (Not Detect.); NG PCR NOT DETECTED (Not Detect.)
[2024-06-16 13:23] LABS: Reflex LDLD? No
== END 2024-06-16 10:02 | disposition home or self-care (01) ==
LOC: HO.HHCL 10:01
PROVIDERS: Visit Provider Internal Medicine
DX: Z11.4 Encounter for screening for human immunodeficiency virus [HIV] (principal); Z11.3 Encounter for screening for infections with a predominantly sexual mode of transmission; E11.9 Type 2 diabetes mellitus without complications; K21.00 Gastro-esophageal reflux disease with esophagitis, without bleeding
CPT/HCPCS: 80048; 80061; 82043; 82306; 82570; 84443; 85025; 86704; 86706; 86709; 86780; 86803; 87340; 87389; 87491; 87591

== ENCOUNTER 2024-07-14 11:42 | Outpatient (REF) | payer OTHER, SELFPAY ==
--- NOTE | ~2024-07-14 | MM_ITS ---
EXAMINATION: MM SCREENING DIGITAL BREAST TOMOSYNTHESIS, BILATERAL CLINICAL INFORMATION: Screening. Asymptomatic. COMPARISON: Mammography: Comparison is made with available priors TECHNIQUE: Digital breast mammography with tomosynthesis is performed in both the craniocaudal and mediolateral oblique views along with computer-aided detection (CAD). FINDINGS: There are scattered areas of fibroglandular density (ACR BI-RADS breast composition Category b). There are no significant masses, abnormal calcifications, or other abnormalities. MM/MM tomosynthesis screening BI IMPRESSION: No mammographic evidence of malignancy. ASSESSMENT: BI-RADS BI-RADS 1 - Negative RECOMMENDATION: Routine annual mammography screening. 1 year F/U This examination should not preclude the clinical evaluation of a suspicious palpable abnormality. This patient's information was entered into a reminder system with a target due date for their next mammogram. Electronically signed by: Alyssa Spence DO 07/16/2024 11:40 AM JONNY
--- OUTSIDE RECORDS SUMMARY | 2024-07-14 14:53 | XMS_ITS | Encounter Summary ---
Author Organization [employer] Address [address] [facility] 7 [place] [address] Care Team Providers Care Fruit Culler Name Role Phone Fern Morley MD Primary Care Provider + Mike Mack Unavailable Unavailable Reason for Visit * Reason Comments Med Refill Encounter Details Date Type Department Care Team (Late st Contact Info) Description 05/08/2024 Refill [facility] [address] [place], [place] [phone] Fern Morley MD [address] [place], [place] [phone] Primary osteoarthritis of both knees Social History [...] [facility] [address] [place] [address] Jonathan, Majo, OD [address] [place] [address] documented as of this encounter Visit Diagnoses Diagnosis Primary osteoarthritis of both knees documented in this encounter Additional Health Concerns Assessment Noted Time PHQ-9 Depression Total Score: 6 10/01/19 24 10:52 AM EDT documented as of this encounter Care Teams Fruit Culler Relationship Specialty Start Date End Date Fern Morley MD [address] [place] [address] PCP - General Family Medicine 06/28/20 Mike Mack FNP [address] [place] [address] Nurse Practitioner Family Medicine 04/03/23 documented as of this encounter
--- OUTSIDE RECORDS SUMMARY | 2024-07-14 14:53 | XMS_ITS | Encounter Summary ---
Author Organization [facility] Address [address] [place] [address] 7 [place] [address] Care Team Providers Care Balloon Artist Name Role Phone Fern Morley MD Primary Care Provider + Mike Mack Unavailable Unavailable Reason for Referral * Imaging (Routine) - Authorized Specialty Diagnoses / Procedures Referred By Contac t Referred To Contact Radiology Diagnoses Screening mammogram for breast cancer Procedures BI Mammogram Screening Tomosynthesis Bilateral Fern Morley MD [address] [place] [phone] Phone: tel: fax: [address] Phone: tel: fax: Referral ID Status Reason Start Date Expiration Date V isits Requested Visits Authorized [id number] Authorized 06/16/2024 06/16/2025 1 1 Reason for Visit * Reason Comments Gynecologic Exam Encounter Details Date Type Department Care Team (Latest Contact Info) Description 06/16/2024 9:15 AM EST Procedure Visit [facility] [address] [place], [place] [phone] Fern Morley MD [address] [place] [address] [phone] Encounter for cervical Pap smear with pelvic exam (Primary Dx); Type 2 diabetes mellitus without complication, without long-term current use of insulin ([facility]); Screening examination for STD (sexually transmitted [...] 9:19 AM EST documented in this encounter Progress Notes * Fern Morley MD - 06/16/2024 9:15 AM EST SUBJECTIVE: Blanca Lott is a 53 y.o. year old female who presents for Pap smear . Denies recent illness, injury, or hospitalization. Last PAP: 2020, NIL/negative HPV. Pap smear on 2019, negative HPV. Hx abn PAP: none. LMP: Over 2+ years, she no longer has menstrual periods. She still gets hot flashes, but not as intense as previous years, and her hair is growing back. Contraception: she is menopausal, has not had a period in 2+ years. She is not in a relationship. She declined having a parole supervisor present. Labs were not done. She is diabetic but no longer on Metformin. She reports the reflux has gotten better, she has gained weight, and the abdominal pain has improved and gets worse with high-calorie and greasy foods. HerBS has been in the 90s since off of Metformin and she has had more of an appetite. She continues taking Abilify. Acute Concerns: She has concerns about nerve damages in both of her hands. She feels that sometimes she cannot close her hands and feels numbness in the mornings. She is taking vitamin D3. She also complains of a pain on her left foot, which causes her some pain. She started a new job, working 12 hour shifts and often on her feet. Social History Social History Narrative Not on file Patient Active Problem List Diagnosis Allergic rhinitis Amenorrhea Female stress incontinence Heartburn Gastroesophageal reflux disease Mild intermittent asthma Perimenopause Primary osteoarthritis of both knees Psychoactive substance abuse ([facility]) Traumatic rotator cuff tear Type 2 diabetes mellitus without complication ([facility]) Vitamin D deficiency Current smoker Food allergy History of surgery Bipolar affective disorder, current episode mixed ([facility]) Primary hypertension Esophagitis Chronic superficial gastritis without bleeding Screening mammogram for breast cancer Dietary counseling Exercise counseling Hair loss Viral upper respiratory tract infection Encounter for cervical Pap smear with pelvic exam Screening examination for STD (sexually transmitted disease) Bunion of left foot Arthritis of both hands Class 1 obesity due to excess calories with serious comorbidity and body mass index (BMI) of 31.0 to 31.9 in adult Pelvic pain in female Family History Problem Relation Name Age of Onset Diabetes Mother Bipolar disorder Mother Heart disease Father Hypertension Father Kidney cancer Brother Coronary artery disease Father's Sister Coronary artery disease Father's Brother Stroke Father's Brother Coronary artery disease Paternal Grandmother Hypertension Paternal Grandfather Cancer Paternal Grandfather Mouth and Throat Review of Systems Constitutional: Negative for chills, fatigue and fever. HENT: Negative for congestion, ear pain, nosebleeds, rhinorrhea, sinus pressure, sore throat and trouble swallowing. Eyes: Negative for pain and discharge. Respiratory: Negative for cough, chest tightness and shortness of breath. Cardiovascular: Negative for chest pain, palpitations and leg swelling. Gastrointestinal: Negative for abdominal pain, blood in stool, constipation, diarrhea and nausea. Endocrine: Negative for polydipsia and polyuria. Genitourinary: Negative for dysuria, frequency, genital sores, pelvic pain and vaginal discharge. Musculoskeletal: Positive for arthralgias. Negative for back pain and neck pain. Skin: Negative for rash. Allergic/Immunologic: Negative for environmental allergies. Neurological: Negative for dizziness, seizures, weakness, light-headedness and headaches. Hematological: Negative for adenopathy. Psychiatric/Behavioral: Negative for agitation, behavioral problems, self-injury and suicidal ideas. OBJECTIVE: Vitals: 06/16/24 0919 BP: 100/66 Pulse: 84 Resp: 20 Temp: 98 ??F (36.7 ??C) Physical Exam Boathouse Keeper present: Declined parole supervisor. Constitutional: Appearance: Normal appearance. HENT: Right Ear: Tympanic membrane and ear canal normal. Left Ear: Tympanic membrane and ear canal normal. Mouth/Throat: Mouth: Mucous membranes are moist. Pharynx: No oropharyngeal exudate or posterior oropharyngeal erythema. Eyes: Pupils: Pupils are equal, round, and reactive to light. Cardiovascular: Rate and Rhythm: Normal rate and regular rhythm. Pulses: Dorsalis pedis pulses are 2+ on the right side and 2+ on the left side. Posterior tibial pulses are 2+ on the right side and 2+ on the left side. Heart sounds: No murmur heard. Pulmonary: Breath sounds: Normal breath sounds. No wheezing. Abdominal: General: Bowel sounds are normal. Palpations: Abdomen is soft. Tenderness: There is no abdominal tenderness. Genitourinary: Labia: Right: No lesion. Left: No lesion. Urethra: No prolapse. Vagina: Normal. Cervix: No cervical motion tenderness, discharge or lesion. Uterus: Deviated (left side) and tender (left horn). Adnexa: Right adnexa normal. Left: Tenderness present. Musculoskeletal: General: Normal range of motion. Right hand: Tenderness (base right thumb) and bony tenderness (base right thumb) present. Cervical back: Normal range of motion. No tenderness. Right foot: No deformity. Left foot: Bunion (small, tender only when moving great toe) present. No deformity. Feet: Right foot: Protective Sensation: 7 sites tested. 7 sites sensed. Skin integrity: No ulcer or fissure. Toenail Condition: Right toenails are normal. Left foot: Protective Sensation: 7 sites tested. 7 sites sensed. Skin integrity: No ulcer or fissure. Toenail Condition: Left toenails are normal. Skin: General: Skin is warm. Neurological: General: No focal deficit present. Mental Status: She is alert and oriented to person, place, and time. Psychiatric: Mood and Affect: Mood normal. Problem List Items Addressed This Visit Encounter for cervical Pap smear with pelvic exam - Primary Pelvic exam today wnl FU pap smear results/HPV/STI testing and will call back PRN positive results or FU in 3 months. Pt feels safe at home, does not have a sexual partner. Counseled regarding STI prevention If today's pap smear/co testing is normal next one will be due in 2030. Relevant Orders Pap Smear Bacterial Vaginosis Chlamydia/N. Gonorrhoeae RNA, TMA, Urogenitial (Completed) Type 2 diabetes mellitus without complication (CMS/HCC) Most likely controlled off Metformin, FU A1c in 2-3 months. Counseled re more frequent low calorie/carb meals. Encouraged physical activity as tolerated. Screening examination for STD (sexually transmitted disease) Last sexual partner was 2 years ago, she wants to be STD tested. Relevant Orders Hepatitis Panel, General (Completed) HIV-1/2 Antigen and Antibodies, Fourth Generation, with Reflexes (Completed) Syphilis Screen (Completed) Bunion of left foot Advised to wear bunion corrector daily and re consult PRN. Arthritis of both hands Advised to continue CA + D, regular physical activity 150 min per week. Take Tylenol PRN. Advised to try OTC Glucosamine for 6 months, will FU in 6 months. Gastroesophageal reflux disease Improved off Metformin, will continue off medications. Discussed with pt regarding cutting down on fat and high calorie foods. Advised to remain upright at least 30 min after each meal. FU with GI PRN. Class 1 obesity due to excess calories [...] referral to dietitian. Pelvic pain in female Only on bimanual palpation during PAP smear, on left side. I explained to patient that I would like to ro other conditions including fibroid, adnexal lesion etc but she declined to be referred for pelvic US or addtl MEDICAL LEAD evaluation. She understood that there may be conditions that Im unable to dx at this time, still wants to hold off on pelvic US . I will fu at next appt if she develops pelvic pain or other sxs. Screening mammogram for breast cancer Dietary counseling Exercise counseling Follow Up: Current Outpatient Medications on File Prior to Visit Medication Sig Dispense Refill Alcohol Swabs (Alcohol Prep) pads Use prior to BG testing ARIPiprazole (Abilify) 5 MG tablet Take 1 tablet (5 mg) by mouth at bedtime. 90 tablet 1 Blood Glucose Monitoring Suppl (FreeStyle Lite) device Inject under the skin if needed. Freestyle lite meter kit Use as directed to test blood sugar Blood Pressure kit Take BP once daily and record readings calcium carbonate EX (Tums Extra Strength) 750 MG chewable tablet chew 1 tab po tid ac meals cholecalciferol (Vitamin D-3) 50 MCG (2000 UT) capsule take 1 Capsule by Oral route every day Diclofenac Sodium 1 % gel apply 2 gram by topical route 4 times every day to the affected area(s) EPINEPHrine (Epipen) 0.3 MG/0.3ML injection syringe inject 0.3 Milligram by Intramuscular route every if needed esomeprazole (NexIUM) [address] capsule Take 1 capsule (40 mg) by mouth before breakfast. Do not open capsule. 90 capsule 0 fluticasone (Flonase) 50 MCG/ACT nasal spray Administer 1 spray into each nostril Once per day for 14 days. Shake gently. Before first use, prime pump. After use, clean tip and replace cap. 16 g 0 FreeStyle lancets by Other route if needed. 28 gauge Use 1 each by as directed route 4 times every day glucose blood (FREESTYLE LITE) test strip Test blood sugar four times daily glucose-vitamin C 4-6 GM-MG oral gel Chew 4 tablets as needed for hypoglycemia, may repeat once after 15 minutes if needed hydrOXYzine HCl (Atarax) 10 MG tablet Take 1 tablet (10 mg) by mouth every 6 (six) hours if needed for anxiety. 90 tablet 2 ibuprofen 800 MG tablet Take 1 tablet (800 mg) by mouth if needed in the morning, at noon, and at bedtime for fever, headaches or mild pain. 90 tablet 3 lisinopril 10 MG tablet TAKE 1 TABLET(10 MG) BY MOUTH IN THE MORNING 90 tablet 3 loratadine (Claritin) 10 MG tablet TAKE 1 TABLET BY MOUTH EVERY DAY NEEDED 90 tablet 2 melatonin 3 MG tablet Take 1 tablet (3 mg) by mouth if needed at bedtime for sleep. 30 tablet 11 sucralfate (Carafate) 1 g tablet Take 1 g by mouth at bedtime. Ventolin HFA 108 (90 Base) MCG/ACT inhaler INHALE 2 PUFFS IF NEEDED IN THE MORNING, AT NOON, IN THEEVENING, AND AT BEDTIME FOR WHEEZING. 18 g 2 [DISCONTINUED] metFORMIN XR (Glucophage-XR) 500 MG 24 hr tablet TAKE 1 TABLET(500 MG) BY MOUTH DAILY WITH THE EVENING MEAL. DO NOT CRUSH, CHEW, OR SPLIT 90 tablet 0 No current facility-administered medications on file prior to visit. I, Dilia Chris, am serving as a scribe to document services personally performed by Dr. Fern Morley, based on the patient's response to questions by provider and provider's statements to me. documented in this encounter Miscellaneous Notes * [...] be referred for pelvic US or addtl MEDICAL LEAD evaluation. She understood that there may be [...] * Assessment & Plan Note - Dilia Chirs - 06/16/2024 1:20 PM ESTAssociated Problem(s): Bunion [...] next one will be due in 2029. * Result Encounter Note - Fern Morley MD - 06/16/2024 9:15 AM EST Please send Stable Lab Letter * Result Encounter Note - Fern Morley MD - 06/16/2024 9:15 AM EST Please send Stable Lab Letter documented in this encounter Plan of Treatment Upcoming Encounters Date Type Department Care Team (Late st Contact Info) Description 09/09/2024 9:30 AM EDT Office Visit [facility] OPT[facility] [address] [place] [address] JonathanMajo william, OD [address] [place] [address] Scheduled Orders Name Type Priority Associated Diagnoses Orde r Schedule Bacterial Vaginosis Microbiology Routine Encounter for cervical [...] Screening examination for STD (sexually transmitted disease) PAP SMEAR Routine 06/16/2024 12:00 AM EST Encounter for cervical Pap smear with pelvic exam documented in this encounter Results * Chlamydia/N. Gonorrhoeae RNA, TMA, Urogenitial (06/16/2024 10:10 AM EST) CT PCR NOT DETECTED Not Detect. [facility] Comment:A not detected test result does [...] psychologicalconsequences. NG PCR NOT DETECTED Not Detect. [facility] Comment:A not detected test result does [...] AM EST 06/16/2024 11:18 AM EST Narrative [facility] - 06/16/2024 1:01 PM EST Urine Fern Morley MD LAB MICROBIOLOGY - GENER AL ORDERABLES Final Result Performing Organization Address City/[facility]/ZIP Co de Phone Number [facility] [address] [place] [phone] * Syphilis Screen (06/16/2024 10:10 AM EST) Syphilis Screen Nonreactive Nonreactive [facility] Blood 06/16/2024 10:1 0 AM EST 06/16/2024 11:24 AM EST Fern Morley MD LAB BLOOD ORDERABLES Fin al Result Performing Organization Address [facility] Co de Phone Number [facility] [address] [place] [phone] * HIV-1/2 Antigen and Antibodies, Fourth Generation, with Reflexes (06/16/2024 10:10 AM EST) HIV AB/AG Nonreactive Nonreactive [facility] Comment:HIV-1 p24 Ag and/or HIV-1/HIV-2 Ab not detected.A test result that is nonreactive does not exclude thepossibility of exposure to or infection with HIV-1 and/orHIV-2. Nonreactive results in this assay for individualswith prior exposure to HIV-1 and/or HIV-2 may be due toantigen and antibody levels that are below the limit ofdetection of this assay.[employer] HIV Ag/Ab Combo assay result andsupplemental assay results should be interpreted inconjunction with the patient's clinical presentation,history and other laboratory results. If the results areinconsistent with clinical evidence, additional testing issuggested to confirm the result. Blood Venous blood specimen / Unknown 06/16/2024 10:10 AM EST 06/16/2024 11:24 AM EST Fern Morley MD LAB BLOOD ORDERABLES Fin al Result Performing Organization Address [facility]/ZIP Co de Phone Number [facility] [address] [place] [phone] * Hepatitis Panel, General (06/16/2024 10:10 AM EST) Hepatitis A IgM Nonreactive Nonreactive [facility] Comment:IgM antibodies to VELASQUEZ V not detected; does not exclude earlyacute or recovered HAV infection. ~Hepatitis B Surface Antibody REACTIVE Nonreactive [facility] Comment:REACTIVE: > 11.99 mI U/mL Hepatitis B Core Antibody Nonreactive Nonreactive [facility] Hepatitis C Antibody Nonreactive Nonreactive [facility] Comment:Antibodies to HCV no t detected; does not exclude early acuteHCV infection. Hepatitis B Surface Ag Negative Negative [facility] Blood 06/16/2024 10:1 0 AM EST 06/16/2024 11:24 AM EST Fern Morley MD LAB BLOOD ORDERABLES Fin al Result Performing Organization Address [facility]/ZIP Co de Phone Number [facility] [address] [place] [phone] * Pap Smear (06/16/2024 12:00 AM EST) Swab Cervical swab / Unknown 06/16/2024 06/17/2024 9:15 AM EST Narrative [facility] - 06/25/2024 1:12 PM EST ----- ------- Name: Blanca Lott I ?Age/Sex: 53/F ? : 1970 Unit#: [id number] ?? Attend Dr: Fern Morley MD ?Re06/16/24 ?Status: DEP REF ? Location: HO.LNP ?Disch: ? ----- ------- SPEC : [id number] ? RECD: 06/17/24 ? STATUS: ??SOUT ? REQ NUM: [id number] ? EMILY: 06/16/24 ? SUBM DR: Fern Morley MD ? ENTERED: ??06/17/24 ?SP TYPE: Pap Smr ?OTHR DR: ? ORDERED: ??Pap Smear ? Interpretation ?? Satisfactory for evaluation. ?? Negative for intraepithelial lesion or malignancy. ?? No endocervical cells seen. ? HPV High Risk: ??Negative ? HPV Genotyping 16: ??Negative ?? HPV Genotyping 18: ??Negative ?Clinical Information LMP: Postmenopausal Previous PAP test: 2020, WNL Other history: Pos HPV on 2016 ? Material Received ?? ThinPrep-Cervical ----- ------- Signed (signature on file) MARTELL Leal (ASCP) 06/25/24 1312 ? ----- ------- ? END OF REPORT ? us Fern Morley MD LAB CYTOLOGY ORDERABLES Final Result [facility] [address] [place] [phone] documented in this encounter Visit Diagnoses Diagnosis Encounter for cervical Pap smear with pelvic exam- Primary Type 2 diabetes mellitus without complication, without long-term current use of insulin ([facility]) Screening examination for STD (sexually transmitted disease) [...] documented as of this encounter Care Teams Balloon Artist Relationship Specialty Start Date End Date Fern Morley MD [address] [place] [address] PCP - General Family Medicine 06/28/20 Mike Mack FNP [address] [place] [phone] Nurse Practitioner Family Medicine 04/03/23 documented as of this encounter
--- OUTSIDE RECORDS SUMMARY | 2024-07-14 14:53 | XMS_ITS | Encounter Summary ---
Author Organization [employer] Address [address] [facility] [address] [place] [address] Care Team Providers Care General Car Supervisor Yard Name Role Phone Fern Morley MD Primary Care Provider + Mike Mack Unavailable Unavailable Reason for Visit * Reason Onset Date Comments Chart Prep 06/15/2024 Encounter Details Date Type Department Care Team (Late st Contact Info) Description 06/15/2024 Telephone [facility] [address] [place] [address] Flora Garza MA Chart Prep Social History [...] Description 09/09/2024 9:30 AM EDT Office Visit [facility] OPTOMETRY [address] [place] [address] Jonathan, Majo, OD [address] [place] [address] documented as of this encounter Visit Diagnoses Not on filedocumented in this encounter Additional Health Concerns Assessment Noted Time PHQ-9 Depression Total Score: 6 10/01/19 24 10:52 AM EDT documented as of this encounter Care Teams General Car Supervisor Yard Relationship Specialty Start Date End Date Fern Morley MD [address] [place] [address] PCP - General Family Medicine 06/28/20 Mike Mack FNP [address] [place] [address] Nurse Practitioner Family Medicine 04/03/23 documented as of this encounter
--- OUTSIDE RECORDS SUMMARY | 2024-07-14 14:54 | XMS_ITS | Clinical Summary ---
Author Organization [employer] Address [address] [place] [address] 7 [place] [address] Care Team Providers Care Cloud Physicist Name Role Phone Fern Morley MD Primary [...] strip Test blood sugar four times daily 11/28/19 22 Active calcium carbonate EX (Tums Extra Strength) 750 MG chewable tablet chew 1 tab po tid ac meals 09/27/19 22 Active cholecalciferol (Vitamin D-3) 50 MCG (1999) capsule take 1 Capsule by Oral route every day 02/20/20 19 Active Diclofenac Sodium 1 % gel apply 2 gram by topical route 4 times every day to the affected area(s) 10/07/19 22 Active EPINEPHrine (Epipen) 0.3 MG/0.3ML injection syringe inject 0.3 Milligram by Intramuscular route every if needed 05/31/19 22 Active glucose-vitamin C 4-6 GM-MG oral gel [...] Take 1 g by mouth at bedtime. 10/24/19 23 Active ARIPiprazole (Abilify) 5 MG tablet Take 1 tablet (5 mg) by mouth at bedtime. 90 tablet 1 10/01/19 24 Active hydrOXYzine HCl (Atarax) 10 MG tabletIndications :Bipolar affective disorder, current episode mixed, current episode severity unspecified (CMS/HCC) Take 1 tablet (10 mg) by mouth every 6 (six) hours if needed for anxiety. 90 tablet 2 10/01/19 24 Active melatonin 3 MG tablet Take 1 tablet (3 mg) by mouth if needed at bedtime for sleep. 30 tablet 11 10/01/19 24 Active lisinopril 10 MG tabletIndications :Primary hypertension TAKE 1 TABLET(10 MG) BY MOUTH IN THE MORNING 90 tablet 3 11/19/19 24 Active ibuprofen 800 MG tabletIndications :Primary osteoarthritis of both knees Take 1 tablet (800 mg) by mouth if needed in the morning, at noon, and at bedtime for fever, headaches or mild pain. 90 tablet 3 02/07/20 24 025 Active fluticasone (Flonase) 50 MCG/ACT nasal spray Administer 1 spray into each nostril Once per day for 14 days. Shake gently. Before first use, prime pump. After use, clean tip and replace cap. 16 g 02/21/20 24 Active esomeprazole (NexIUM) [address] capsuleIndication s:Esophagitis Take 1 capsule (40 mg) by mouth before breakfast. Do not open capsule. 90 capsule 02/21/20 24 025 Active Ventolin HFA 108 (90 Base) MCG/ACT inhaler INHALE 2 PUFFS IF NEEDED IN THE MORNING, AT NOON, IN THE EVENING, AND AT BEDTIME FOR WHEEZING. 18 g 2 05/11/20 24 Active loratadine (Claritin) 10 MG tablet TAKE 1 TABLET BY MOUTH EVERY DAY NEEDED 90 tablet 2 05/18/19 25 Active topiramate (Topamax) 25 MG tablet Take 1 tablet (25 mg) by mouth at bedtime. 30 tablet 11 06/16/19 25 026 Active metFORMIN XR (Glucophage-XR) 500 MG 24 hr tablet TAKE 1 TABLET(500 MG) BY MOUTH DAILY WITH THE EVENING MEAL. DO NOT CRUSH, CHEW, OR SPLIT 90 tablet 01/21/20 24 025 Discontin ued(Side effects) Active Problems Problem Noted Date Diagnosed [...] be referred for pelvic US or addtl SCREEDMAN/LABORER evaluation. She understood that there may be [...] lisinopril same dose. 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 Any issues or concerns, call [facility]. All her questions were answered and I [...] Encounters Date Type Department Care Team Description 07/02/2024 Telephone [facility] MEDICINE [address] [place] [address] Fern Morley MD May recall 06/25/2024 Telephone [facility] MED[facility]INE [address] [place] [address] Fern Morley MD Stable Letter 06/17/2024 Telephone [facility]INE [address] [facility] [place] [address] Fern Morley MD Stable Lab Letter 06/16/2024 9:15 AM EST Procedure Visit [facility] [address] [facility] [place] [address] Fern Morley MD Encounter for cervical Pap smear with pelvic exam (Primary Dx); Type 2 diabetes mellitus without complication, without long-term current use of insulin ([facility]); Screening examination for STD (sexually transmitted disease); Bunion of left foot; Arthritis of both hands; Gastroesophageal reflux disease with esophagitis, unspecified whether hemorrhage; Class 1 obesity due to excess calories with serious comorbidity and body mass index (BMI) of 31.0 to 31.9 in adult; Pelvic pain in female; Screening mammogram for breast cancer; Dietary counseling; Exercise counseling 06/16/2024 Orders Only [facility] MED[facility]INE [address] [place] [address] Fern Morley MD 06/16/2024 Travel 06/15/2024 Telephone [facility]INE [address] [place] [address] Flora Garza MA Chart Prep 05/18/2024 Refill [facility]INE [address] [place] [address] Fern Morley MD 05/09/2024 Refill [facility] [address] [place] [address] Fern Morley MD 05/08/2024 Refill [facility] [address] [place] [address] Fern Morley MD Primary osteoarthritis of both knees 04/28/2024 Telephone [facility] MED[facility]INE [address] [place] [address] Fern Morley MD June04/15/2024 Telephone [facility] MED[facility]INE [address] [place] [address] Fern Morley MD No Show from Last 3 Months Immunizations Name Administration [...] Description 09/09/2024 9:30 AM EDT Office Visit [facility] OPTOMETRY [address] [place] [address] Jonathan, Majo, OD [address] [place] [address] Health Maintenance Due Date Last Done Comments CT Colonography 1972 FIT DNA/Cologuard 1972 FIT 1970 FOBT 1970 Sigmoidoscopy 1970 Alcohol/Substance Use Screening 1984 Family Planning (PISQ) 08/02/1987 Hepatitis A Vaccines (1 of 2 - Risk 2-dose series) 08/02/1991 Hepatitis B Vaccines (1 of 3 - 19+ 3-dose series) 08/02/1991 Zoster Vaccines (1 of 2) 09/20/2022 Pneumococcal Vaccine: 50+ Years (2 of 2 - PCV) 01/09/2023 01/09/2022 DTaP/Tdap/Td Vaccines (2 - Td or Tdap) 07/07/2023 07/07/2013, 07/29/2004 SDOH Screening 07/28/2023 07/27/2022 COVID-19 Vaccine (3 - season) 2024 03/22/2021, 03/01/2021 Influenza Vaccine (#1) 2024 01/31/2018, 2013 Diabetes: Hemoglobin A1C 05/23/2024 024, 03/11/2023, 07/27/2022, Additional history exists Depression Screening 09/30/2024 10/01/2023, 10/01/19 24 Eye Exam 10/17/2024 10/17/2022, 06/11/2022, 10/17/2022, Additional history exists Mammogram 03/11/2025 03/11/2023, 03/10/2018 Diabetes: Foot Exam 06/16/2025 06/16/2024, 06/16/2024, 06/16/2024, Additional history exists Diabetes: Urine Protein Screening 06/16/2025 06/16/2024, 10/10/2021 Lipid Panel 06/16/2025 06/16/2024, 09/11, 10/06/2021, Additional history exists Tobacco Screening 06/16/2025 06/16/2024 Cervical Cancer Screening 06/16/2029 HPV/Cotest 06/16/2029 06/16/2024, 01/11, 06/23/2019, Additional history exists Pap Smear 06/16/2029 06/16/2024, 01/25/2021 Colonoscopy 10/09/2032 10/09/2022 Colorectal Cancer Screening [...] for cervical Pap smear with pelvic exam BACTERIAL VAGINOSIS PANEL Routine 06/16/2024 9:50 AM EST PAP SMEAR Routine 06/16/2024 12:00 AM EST Encounter for cervical Pap smear with pelvic exam HPV DNA, LOW/HIGH RISK Routine 06/16/2024 12:00 AM EST POCT GLYCATED HEMOGLOBIN, TOTAL Routine 02/21/2024 9:20 AM EDT Type 2 diabetes mellitus without complication, without long-term current use of insulin ([facility]) BI MAMMOGRAM SCREENING BILATERAL Routine 03/11/2023 Screening mammogram for breast cancer HM COLONOSCOPY Routine 10/09/2022 from Last 3 Months or Most Recently Relevant to Health Maintenance Results * Syphilis Screen (06/16/2024 10:10 AM EST) Syphilis Screen Nonreactive Nonreactive [facility] Blood 06/16/2024 10:1 0 AM EST 06/16/2024 11:24 AM EST us Fern Morley MD LAB BLOOD ORDERABLES Fin al Result [facility] [address] [place] [phone] * Vitamin D, 25-Hydroxy, Total, Immunoassay (06/16/2024 10:10 AM EST) Vitamin D 25-OH Total 52.7 >30 ng/mL [facility] Comment:Health Based Referen ce Values*< 20 ng/mL Lvowgeaex40-43 ng/mL Insufficient> 30 ng/mL Sufficient*Ruddy GILBERT. N [...] ORDERABLES Fin al Result Performing Organization Address [facility] Co co Phone Number [facility] [address] [place] [address] [phone] * TSH with Reflex to Free T4 (06/16/2024 10:10 AM EST) TSH reflex Free T4 0.52 0.32 - 4.0 uIU/mL [facility] Blood 06/16/2024 10:1 0 AM EST 06/16/2024 11:24 AM EST Fern Morley MD LAB BLOOD ORDERABLES Fin al Result Performing Organization Address [facility] Co de Phone Number [facility] [address] [place] [phone] * (ABNORMAL) Lipid Panel with Reflex to Direct LDL (06/16/2024 10:10 AM EST) Triglycerides 90 <150 mg/dL [facility] Comment:Desirable Triglyceri de: less than 150 mg/dLBorderline High Triglyceride 150-199 mg/dLHigh Triglyceride: 200-499 mg/dLVery High Triglyceride: greater than or equal to 5OO mg/dL Cholesterol 183 <200 mg/dL [facility] Comment:Desirable Cholestero l: less than 200 mg/dLBorderline High Cholesterol: 200-239 mg/dLHigh Cholesterol: greater than 239 mg/dL LDL Cholesterol Calculated 112(H) <100 mg/dL [facility] Comment:Desirable LDL: less than 100 mg/dLNear Optimal/Above Optimal LDL: 110- 129 mg/dLBorderline High LDL: 130-159 mg/dLHigh LDL: 160-189 mg/dLVery High LDL: greater than or equal to 190 mg/dL HDL Cholesterol 53 >40 mg/dL [facility] Comment:Desirable HDL: great er than 40 mg/dL Note: This HDL assay may give artificially low results in patients with liver disease. Blood 06/16/2024 10:1 0 AM EST 06/16/2024 11:24 AM EST Fern Morley MD LAB BLOOD ORDERABLES Fin al Result Performing Organization Address [facility] Co de Phone Number [facility] [address] [place] [phone] * Hepatitis Panel, General (06/16/2024 10:10 AM EST) Hepatitis A IgM Nonreactive Nonreactive [facility] Comment:IgM antibodies to VELASQUEZ V not detected; does not exclude earlyacute or recovered HAV infection. ~Hepatitis B Surface Antibody REACTIVE Nonreactive [facility] Comment:REACTIVE: > 11.99 mI U/mL Hepatitis B Core Antibody Nonreactive Nonreactive [facility] Hepatitis C Antibody Nonreactive Nonreactive [facility] Comment:Antibodies to HCV no t detected; does not exclude early acuteHCV infection. Hepatitis B Surface Ag Negative Negative [facility] Blood 06/16/2024 10:1 0 AM EST 06/16/2024 11:24 AM EST us Fern Morley MD LAB BLOOD ORDERABLES Fin al Result Performing Organization Address [facility] Co de Phone Number [facility] [address] [place] [phone] * Albumin, Random Urine W/Creatinine (06/16/2024 10:10 AM EST) Creatinine, Urine 246.37 mg/dL [facility] Microalbumin Urine 10.0 mg/L H [facility] Microalbum Creatinine Ratio Ur 4.0 <30 ug/mg cr [facility] Comment:Albumin/Creatinine R atio Reference Ranges: Normal: < 30 ug/mg creatinine Microalbuminuria: 30 - 300 ug/mg creatinineClinical Albuminuria: > 300 ug/mg creatinine Urine (Urine, Random) 06/16/2024 10:10 AM EST 06/16/2024 11:18 AM EST us Fern Morley MD LAB URINE ORDERABLES Fin al Result [facility] [address] [place] [phone] * (ABNORMAL) CBC auto differential (06/16/2024 10:10 AM EST) White Blood Count 6.9 4.8 - 10.8 X10*3/uL [facility] Red Blood Count 5.45 4.20 - 5.50 X10*6/uL [facility] Hemoglobin 14.4 12.0 - 16.0 g/dl [facility] Hematocrit 43.1 37.0 - 47.0 % [facility] Mean Corpuscular Volume 79.1(L) 80.0 - 98.0 fL [facility] Mean Corpuscular Hemoglobin 26.4(L) 27.0 - 33.0 pg [facility] Mean Corpuscular HGB Conc 33.4 31.0 - 35.0 g/dl [facility] Red Cell Distribution Width 13.4 11.0 - 16.0 % [facility] Platelet Count 275 160 - 400 X10*3/uL [facility] Mean Platelet Volume 11.5 9.4 - 12.3 fL [facility] Neutrophils Percent Auto 60.2 45 - 73 % [facility] Imm Gran Pct Auto 0.1 0.0 - 0.4 % [facility] Lymphocytes Percent Auto 29.3 20 - 40 % [facility] Monocytes Percent Auto 6.0 2 - 11 % [facility] Eosinophils Percent Auto 3.8 0 - 4 % [facility] Basophils Percent Auto 0.6 0 - 2 % [facility] NRBC Pct Auto 0.0 0.0 - 0.2 /100WBC [facility] Neutrophils Absolute Auto 4.1 2.0 - 8.3 x10*3/uL [facility] Imm Gran Abs Auto 0.01 0.00 - 0.03 X10*3/uL [facility] Lymphocytes Absolute Auto 2.0 1.2 - 4.9 X10*3/uL [facility] Monocytes Absolute Auto 0.4 0.1 - 1.2 X10*3/uL [facility] Eosinophils Absolute Auto 0.3 0.0 - 0.4 X10*3/uL [facility] Basophils Absolute Auto 0.0 0.0 - 0.2 X10*3/uL [facility] NRBC Abs Auto 0.000 0.0 - 0.012 X10*3/uL [facility] Blood Venous blood specimen / Unknown 06/16/2024 10:10 AM EST 06/16/2024 11:24 AM EST Fern Morley MD LAB BLOOD ORDERABLES Fin al Result [facility] [address] [place] [phone] [phone] * Chlamydia/N. Gonorrhoeae RNA, TMA, Urogenitial (06/16/2024 10:10 AM EST) CT PCR NOT DETECTED Not Detect. [facility] Comment:A not detected test result [...] psychologicalconsequences. NG PCR NOT DETECTED Not Detect. [facility] Comment:A not detected test result [...] AM EST 06/16/2024 11:18 AM EST Narrative [facility] - 06/16/2024 1:01 PM EST Urine us Fern Morley MD LAB MICROBIOLOGY - GENER AL ORDERABLES Final Result [facility] [address] [place] [phone] * HIV-1/2 Antigen and Antibodies, Fourth Generation, with Reflexes (06/16/2024 10:10 AM EST) HIV AB/AG Nonreactive Nonreactive [facility] Comment:HIV-1 p24 Ag and/or HIV-1/HIV-2 Ab not detected.A test result that is nonreactive does not exclude thepossibility of exposure to or infection with HIV-1 and/orHIV-2. Nonreactive results in this assay for individualswith prior exposure to HIV-1 and/or HIV-2 may be due toantigen and antibody levels that are below the limit ofdetection of this assay.The Isagenn[employer]wise HIV Ag/Ab Combo assay result andsupplemental assay results should be interpreted inconjunction with the patient's clinical presentation,history and other laboratory results. If the results areinconsistent with clinical evidence, additional testing issuggested to confirm the result. Blood Venous blood specimen / Unknown 06/16/2024 10:10 AM EST 06/16/2024 11:24 AM EST us Fern Morley MD LAB BLOOD ORDERABLES Fin al Result Performing Organization Address [facility] Co de Phone Number [facility] [address] [place] [phone] * (ABNORMAL) Basic Metabolic Panel (06/16/2024 10:10 AM EST) Sodium 139 135 - 145 mmol/L [facility] Potassium 4.0 3.3 - 5.1 mmol/L [facility] Chloride 108 96 - 108 mmol/L [facility] Carbon Dioxide 21(L) 22 - 29 mmol/L [facility] Anion Gap 14 12 - 20 [facility] Urea Nitrogen (BUN) 13 9 - 16 mg/dL [facility] Creatinine, Serum 0.88 0.5 - 1.4 mg/dL [facility] Estimated Glomerular Filt Rate >60 [facility] Comment:Chronic Kidney Disea se: Estimated GFR < 60 mL/min/1.66u3Drzlzv Kidney Disease: Estimated GFR < 15 mL/min/1.73m2 Glucose 113 60 - 115 mg/dL [facility] Calcium 9.3 8.4 - 10.2 mg/dL [facility] Blood Venous blood specimen / Unknown 06/16/2024 10:10 AM EST 06/16/2024 11:24 AM EST Fern Morley MD LAB BLOOD ORDERABLES Fin al Result Performing Organization Address [facility]/ZIP Co de Phone Number [facility] [address] [place] [phone] * Bacterial Vaginosis (06/16/2024 9:50 AM EST) TRICHOMONAS VAGINALIS DETECTION BY PCR NOT DETECTED Not Detect [facility] BACTERIAL VAGINOSIS DETECTION BY PCR NEGATIVE Negative [facility] Comment:The BV organism targ ets of the Xpert Xpress MVP test can becommensal in women; Xpert Xpress MVP positive results forbacterial vaginosis should be considered in conjunction withother clinical and patient information to determine thedisease status. Organisms that are not detected by the XpertXpress MVP test have also been reported to be associatedwith BV and aerobic vaginitis.The Xpert Xpress MVP test performance has not been evaluatedin patients under the age of 14. SHEFALI GROUP DETECTION BY PCR NOT DETECTED Not Detect [facility] Shefali glab krusei PCR NOT DETECTED Not Detect [facility] 06/16/2024 9:50 AM EST 06/16/2024 2:25 PM EST us Fern Morley MD LAB MICROBIOLOGY - GENER AL ORDERABLES Final Result [facility] [address] [place] [phone] [phone] * HPV DNA, Low/High Risk (06/16/2024 12:00 AM EST) HPV High Risk Negative Negative [facility] HPV Genotype 16 Negative Negative [facility] HPV Genotype 18 Negative Negative [facility] Comment:HPV testing performe d at [facility] (CLIA#[id number]), [address] [place] [phone].Testing for HPV was performed using the [employer] MURIEL 6800system. The presence of HPV in the female genital tract isassociated with a number of diseases, including cervicalcarcinoma. The HPV DNA high risk pool tests for HPV 31, 33,35, 39, 45, 51, 52, 56, 58, 59, 66 and 68. The testing forHPV 16 and 18 genotypes has also been performed. A positiveresult indicates detection of nucleic acid sequences fromone or more subtypes, whereas a negative result indicatessuch sequences were not detected. 06/16/2024 06/17/2024 9:1 5 AM EST Fern Morley MD LAB BLOOD ORDERABLES Fin al Result [facility] [address] [place] [phone] * Pap Smear (06/16/2024 12:00 AM EST) Swab Cervical swab / Unknown 06/16/2024 06/17/2024 9:15 AM EST Narrative [facility] - 06/25/2024 1:12 PM EST ----- ------- Name: Blanca Lott I ?Age/Sex: 53/F ? : 1970 Unit#: [id number] ?? Attend Dr: Fern Morley MD ?Re06/16/24 ?Status: DEP REF ? Location: HO.LNP ?Disch: ? ----- ------- SPEC : [id number] ? RECD: 06/17/24 ? STATUS: ??SOUT ? REQ NUM: [id number] ? EMILY: 06/16/24 ? SUBM DR: Fern Morley MD ? ENTERED: ??06/17/24 ?SP TYPE: Pap Smr ?OTHR : ? ORDERED: ??Pap Smear ? Interpretation ?? [...] ------- Signed (signature on file) MARTELL Leal ([facility]) 06/25/24 1312 ? ----- ------- ? END OF REPORT ? Fern Morley MD LAB CYTOLOGY ORDERABLES Final Result [facility] [address] [place], [place] [phone] * (ABNORMAL) POCT HGB A1C (02/21/2024 9:20 AM EDT) [facility] Hemoglobin A1C 6.1(A) 4.0 - 6.0 % QC Media Lot # [id number] Lot# Expiration Date 661 Blood 02/21/2024 9:20 AM EDT Fern Morley MD POINT OF CARE TEST ENTER /EDIT ORDERABLES Final Result * BI Mammogram Screening Bilateral (03/11/2023) Anatomical Region Laterality Modality Breast Bilateral Mammography Fern Morley MD IMG BI PROCEDURES Final Result * Hm Colonoscopy (10/09/2022) Pathologist [facility] Colonoscopy Normal Normal [facility] 10/09/2022 Fern Morley MD HEALTH MAINTENANCE Final Result [facility] [address] [place] [phone] [phone] from Last 3 Months or Most Recently Relevant to Health Maintenance Insurance [facility] FULL [facility] G[facility] Care Teams Cloud Physicist Relationship Specialty Start Date End Date Fern Morley MD [address] [place] [address] [place] [address] PCP - General Family Medicine 06/28/20 Mike Mack FNP [address] [place] [address] Nurse Practitioner Family Medicine 04/03/23
--- OUTSIDE RECORDS SUMMARY | 2024-07-14 14:54 | XMS_ITS | Encounter Summary ---
Author Organization [employer] Address [address] [place] [address] Care Team Providers Care Finish Cleaner Name Role Phone Fern Morley MD Primary [...] 9:30 AM EDT Office Visit [facility] OPTOMETRY [address] [place] [address] Majo Castillo, OD [address] [place] [address] documented as of this encounter Visit Diagnoses Not on filedocumented in this encounter Additional Health Concerns Assessment Noted Time PHQ-9 Depression Total Score: 6 10/01/19 24 10:52 AM EDT documented as of this encounter Care Teams Finish Cleaner Relationship Specialty Start Date End Date Fern Morley MD [address] [place] [address] PCP - General Family Medicine 06/28/20 Mike Mack FNP [address] [place] [address] Nurse Practitioner Family Medicine 04/03/23 documented as of this encounter
--- OUTSIDE RECORDS SUMMARY | 2024-07-14 14:54 | XMS_ITS | Clinical Summary ---
Author Organization [facility] Address [address] [place] [address] Care Team Providers Care Modeling Agent Name Role Phone Unavailable Primary Care Provider Unavailabl e Social History Tobacco Use Types Packs/Day Years Used Date Smoking Tobacco: Never Assessed Comments Unknown Sex and Gender Information Value Date Recorded Sex Assigned at Not on file Legal Sex Female 5:04 AM EST Gender Identity Not on file Sexual Orientation [...] 04/15/2022 Social Influencers of Health Screening 04/15/2022 Pneumococcal Vaccine: 50+ Ye ars (1 of 1 - PCV) 2022 Zoster Vaccines (1 of 2) 2022 COVID-19 Vaccine ( - 2023-2 5 season) 2024 Influenza Vaccine (#1) 2024 [...] patient's age to complete this topic Meningococcal B Vacine Aged Out No lo nger eligible based on patient's age to complete [...]
--- OUTSIDE RECORDS SUMMARY | 2024-07-14 14:54 | XMS_ITS | Encounter Summary ---
Author Organization [employer] Address 75 [facility] 7 [place] [address] Care Team Providers Care Director Public Name Role Phone Fern Morley MD Primary Care Provider + Mike Mack Unavailable Unavailable Reason for Visit * Reason Onset Date Comments May recall 07/02/2024 Encounter Details Date Type Department Care Team (Late st Contact Info) Description 07/02/2024 Telephone [facility] MEDICINE [address] [place], [place] [phone] Fern Morley MD [address] [place], [place] [phone] May recall Social History Tobacco Use Types Packs/Day Years [...] encounter Miscellaneous Notes * Telephone Encounter - Vivi Wheat MA - 07/02/2024 11:32 AM EST Telephone call to patient to schedule a recall appointment. No answer, Left voicemail to return call to clinic.. Recall letter sent. Visit type: Office visit Appointment notes: fu DM/labs Month due: September With: Peyman Please schedule appointment above if patient returns call documented in this encounter Plan of Treatment Upcoming Encounters Date Type Department Care Team (Late st Contact Info) Description 09/09/2024 9:30 AM EDT Office Visit [facility] OPTOMETRY [address] [place] [address] Jonathan, Majo, OD [address] [place] [address] documented as of this encounter Visit Diagnoses Not on filedocumented in this encounter Additional Health Concerns Assessment Noted Time PHQ-9 Depression Total Score: 6 10/01/19 24 10:52 AM EDT documented as of this encounter Care Teams Director Public Relationship Specialty Start Date End Date Fern Morley MD [address] [place] [address] PCP - General Family Medicine 06/28/20 Mike Mack FNP [address] [place] [address] Nurse Practitioner Family Medicine 04/03/23 documented as of this encounter
--- OUTSIDE RECORDS SUMMARY | 2024-07-14 14:54 | XMS_ITS | Encounter Summary ---
Author Organization [employer] Address 75 [facility] 7 [place] [address] Care Team Providers Care Hospice Executive Director Name Role Phone Fern Morley MD Primary Care Provider + Mike Mack Unavailable Unavailable Reason for Visit * Reason Onset Date Comments Stable Lab Letter 06/17/2024 Encounter Details Date Type Department Care Team (Late st Contact Info) Description 06/17/2024 Telephone [facility] MEDICINE [address] [place], [place] [phone] Fern Morley MD [address] [place], [place] [phone] Stable Lab Letter Social History Tobacco Use Types Packs/Day Years [...] encounter Miscellaneous Notes * Telephone Encounter - Sandra Wadsworth - 06/17/2024 8:32 AM EST Mailed out stable lab letter to pt. documented in this encounter Plan of Treatment Upcoming Encounters Date Type Department Care Team (Late st Contact Info) Description 09/09/2024 9:30 AM EDT Office Visit [facility] OPTOMETRY [address] [place] [address] Jonathan, Majo, OD 230 [place] [address] documented as of this encounter Visit Diagnoses Not on filedocumented in this encounter Additional Health Concerns Assessment Noted Time PHQ-9 Depression Total Score: 6 10/01/19 24 10:52 AM EDT documented as of this encounter Care Teams Hospice Executive Director Relationship Specialty Start Date End Date Fern Morley MD [address] [place] [address] PCP - General Family Medicine 06/28/20 Mike Mack FNP [address] [place] [phone] Nurse Practitioner Family Medicine 04/03/23 documented as of this encounter
--- OUTSIDE RECORDS SUMMARY | 2024-07-14 14:54 | XMS_ITS | Encounter Summary ---
Author Organization [employer] Address 75 [facility] 7 [place] [address] Care Team Providers Care Orthotic Fitter Name Role Phone Fern Morley MD Primary Care Provider + Mike Mack Unavailable Unavailable Reason for Visit * Reason Comments Med Refill Encounter Details Date Type Department Care Team (Late st Contact Info) Description 06/17/2023 Refill [facility] MEDICINE 230 [place], [place] [phone] Fern Morley MD [address] [place], [place] [phone] Social History Tobacco Use Types Packs/Day Years [...] 9:30 AM EDT Office Visit [facility] OPTOMETRY [address] [place] [address] Majo Castillo, OD [address] [place] [address] documented as of this encounter Visit Diagnoses Not on filedocumented in this encounter Additional Health Concerns Assessment Noted Time PHQ-9 Depression Total Score: 10 023 11:14 AM EST documented as of this encounter Care Teams Orthotic Fitter Relationship Specialty Start Date End Date Fern Morley MD [address] [place] [address] PCP - General Family Medicine 06/28/20 Mike Mack FNP [address] [place] [phone] Nurse Practitioner Family Medicine 04/03/23 documented as of this encounter
--- OUTSIDE RECORDS SUMMARY | 2024-07-14 14:54 | XMS_ITS | Encounter Summary ---
Author Organization [employer] Address 75 [facility] 7 [place] [address] Care Team Providers Care Advance Seal Delivery System Maintainer Name Role Phone Fern Morley MD Primary Care Provider + Mike Mack Unavailable Unavailable Reason for Visit * Reason Onset Date Comments Stable Letter 06/25/2024 Encounter Details Date Type Department Care Team (Late st Contact Info) Description 06/25/2024 Telephone [facility] MEDICINE 230 [place], [place] [phone] Fern Morley MD 230 [place], [place] [phone] Stable Letter Social History Tobacco Use Types Packs/Day [...] * Telephone Encounter - Sandra Wadsworth - 06/25/2024 3:01 PM EST Mailed out stable letter to pt. documented in this encounter Plan of Treatment Upcoming Encounters Date Type Department Care Team (Late st Contact Info) Description 09/09/2024 9:30 AM EDT Office Visit [facility] OPTOMETRY [address] [place] [address] Jonathan, Majo, OD [address] [place] [address] documented as of this encounter Visit Diagnoses Not on filedocumented in this encounter Additional Health Concerns Assessment Noted Time PHQ-9 Depression Total Score: 6 10/01/19 24 10:52 AM EDT documented as of this encounter Care Teams Advance Seal Delivery System Maintainer Relationship Specialty Start Date End Date Fern Morley MD 230 [place] [address] PCP - General Family Medicine 06/28/20 Mike Mack FNP [address] [place] [phone] Nurse Practitioner Family Medicine 04/03/23 documented as of this encounter
--- OUTSIDE RECORDS SUMMARY | 2024-07-14 14:54 | XMS_ITS | Encounter Summary ---
Author Organization [employer] Address 75 [facility] 7 [place] [address] Care Team Providers Care Loss Prevention Lead Name Role Phone Fern Morley MD Primary Care Provider + Mike Mack Unavailable Unavailable Encounter Details Date Type Department Care Team (Late st Contact Info) Description 06/16/2024 Orders Only [facility] MEDICINE 230 [place], [place] [phone] Fern Morley MD [address] [place], [place] [phone] Social History Tobacco Use Types Packs/Day Years [...] Visit [facility] OPTOMETRY [address] [place] [address] Jonathan, Majo, OD [address] [place] [address] documented as of this encounter Procedures Procedure Name Priority Date/Time Associated Diagnosis Comments BACTERIAL VAGINOSIS PANEL Routine 06/16/2024 9:50 AM EST HPV DNA, LOW/HIGH RISK Routine 06/16/2024 12:00 AM EST documented in this encounter Results * Bacterial Vaginosis (06/16/2024 9:50 AM EST) TRICHOMONAS VAGINALIS DETECTION BY PCR NOT DETECTED Not Detect [facility] BACTERIAL VAGINOSIS DETECTION BY PCR NEGATIVE Negative [facility] Comment:The BV organism targ ets of [...] DETECTION BY PCR NOT DETECTED Not Detect [facility] Shefali glab krusei PCR NOT DETECTED Not Detect [facility] 06/16/2024 9:50 AM EST 06/16/2024 2:25 PM EST Fern Morley MD LAB MICROBIOLOGY - GENER AL ORDERABLES Final Result Performing Organization Address [facility] [address] [facility] Co de Phone Number [facility] [address] [place] [phone] * HPV DNA, Low/High Risk (06/16/2024 12:00 AM EST) HPV High Risk Negative Negative [facility] HPV Genotype 16 Negative Negative [facility] HPV Genotype 18 Negative Negative [facility] Comment:HPV testing performe d at [facility] (CLIA#[id number]), [address] [place] [address].Testing for HPV was performed using the [employer] [...] ORDERABLES Fin al Result Performing Organization Address [facility] [address]/[facility] Co de Phone Number [facility] [address] [place] [phone] documented in this encounter Visit Diagnoses Not on filedocumented in this encounter Additional Health Concerns Assessment Noted Time PHQ-9 Depression Total Score: 6 10/01/19 24 10:52 AM EDT documented as of this encounter Care Teams Loss Prevention Lead Relationship Specialty Start Date End Date Fern Morley MD [address] [place] [address] PCP - General Family Medicine 06/28/20 Mike Mack FNP [address] [place] [address] Nurse Practitioner Family Medicine 04/03/23 documented as of this encounter
== END 2024-07-14 11:43 | disposition home or self-care (01) ==
LOC: HO.MAMMO 11:42
PROVIDERS: PCP Internal Medicine; Visit Provider Internal Medicine
DX: Z12.31 Encounter for screening mammogram for malignant neoplasm of breast (principal)
CPT/HCPCS: 77063; 77067

== ENCOUNTER → 2024-07-14 11:45 | Outpatient (BNV) | payer OTHER, SELFPAY | PROVIDERS: PCP Internal Medicine; Visit Provider Internal Medicine | DX: Z12.31 Encounter for screening mammogram for malignant neoplasm of breast (principal) | CPT/HCPCS: 77063; 77067 ==

== ENCOUNTER 2024-09-04 11:03 | Outpatient (AMB) | payer OTHER, SELFPAY ==
[2024-09-04 11:07] VITALS: BP 132/68; PULSE 66; O2SAT 100; BMI 30.9
--- NOTE | 2024-09-04 11:07 | MHC.OFFVIS ---
Vital Signs 09/04/24 11:07 Height 5 ft 1 in Weight 163 lb 8 oz BMI 30.9 BP 132/68 Blood Pressure Location Rt brachial Position Sitting Pulse 66 Pulse Source Pulse Oximeter Pulse Oximetry (%) 100 Oxygen Delivery Method Room Air Intake Visit Reasons: f/u gerd Intake Note: ESTABLISHED PATIENT for GERD mgmt. 6 mos FUV. Chief Complaint; C/O severe episodes of N.V. intermittently ~ 6 times over the last 6 mos. Pt had originally thought it was food poisoning or norovirus, however; pt reports she continues to have these episodes with N.V. and GI upset. Pt has stopped taking senna temporarily until their sx subside. Pt also has questions regarding medication (topiramate)? Pt aware that this is not a medication that we prescribe however she has questions about possible affect on GI system. Pt also reports struggle with recent weight gain. Computerized Table Cutter Required: No Accompanied by: Self / Same As Patient Allergies latex [LATEX] Allergy (Unknown, Verified 09/04/24 11:07) Rash seafood Allergy (Verified 09/04/24 11:07) Swelling cinnamon Adverse Reaction (Severe, Verified 09/04/24 11:07) Diarrhea Penicillins [PCN] Adverse Reaction (Severe, Verified 09/04/24 11:07) nausea, severe diarrhea, vomiting amoxicillin Adverse Reaction (Unknown, Verified 09/04/24 11:07) GI symptoms anything ending in cillin Allergy (Unknown, Uncoded 09/04/24 11:07) Unknown PICKLES Allergy (Unknown, Uncoded 09/04/24 11:07) Rash HPI HPI f/u gerd: Details: LAST VISIT Duodenitis Multiple food allergies GERD (gastroesophageal reflux disease) Constipation Early satiety Plan Patient will continue taking Nexium in the morning. Patient will try to avoid dietary triggers and late night snacking. Staying upright for minimum 3 hours after meals discussed with patient. Avoid eating large meals, patient was encouraged to eat small meals and more often. Avoid fiber. Continue taking senna daily. Increase fluid intake and activity to promote better bowel motility. Patient will follow-up in 6 months, however she will call us if she will have any worsening GI symptoms. Patient is agreeable to this plan and verbalizes understanding of instructions. She was given the opportunity to ask questions and all questions answered. ? Thank you for allowing me to participate in her care Medications Refilled esomeprazole magnesium (Nexium) 40 mg PO DAILY 30 caps 5RF K21.9 TODAY'S VISIT Patient is here today for follow-up. Patient reports that she was doing well, however she reports several episodes in the past couple months of nausea and vomiting as well as diarrhea. Patient stopped taking senna. However she states that when she does not take senna she will have diarrhea. Patient reports that Nexium does help. Patient reports phlegm in her throat and feeling like sometimes specially during those episodes food is coming up in she feels bed days in her mouth. Patient reports dyspepsia without dysphagia or odynophagia. Denies any melena, hematochezia, unintentional weight loss or ribbon like stools. Patient reports also postprandial abdominal bloating. No change in her diet. Mostly patient eat Yoruba food, very few vegetables. Patient denies any mucus in her stools. Patient denies any nausea or vomiting in the past few days. We have discussed in the past that patient has mild gastroparesis and he needs to eat smaller meals and more often. Discussed with her low fiber diet. Will provide her with a list of food that she can follow [facility] Medical History Duodenitis HTN (hypertension) Diabetes type 2, controlled Bipolar affective disorder Asthma Chronic GERD Osteoarthritis of lower back Surgical History History of esophagogastroduodenoscopy (EGD) Hx of colonoscopy S/P biopsy of cervix History of repair of left rotator cuff Family History Father HTN (hypertension) High cholesterol Paternal Uncle Heart disease Paternal Aunt Heart disease Social History Household Members: Family Alcohol intake: current Alcohol intake frequency: holidays/special occasions only Patient Tobacco Use Status: Current everyday Tobacco user Tobacco use type: Cigarette Cigarette Packs Per Day: 0.5 Cigarettes Per Day: 5 Years Smoked: 30 Review of Systems Const Denies weight gain and Denies weight loss ENT Reports no additional complaints, Denies dysphagia and Denies odynophagia Card Reports no additional complaints Resp Reports no additional complaints GI Denies abdominal pain, Denies belching, Denies melena, Reports bloating, Reports constipation, Denies dysphagia, Denies excessive flatus, Reports early satiety, Denies dyspepsia, Reports heartburn, Denies diarrhea, Denies loose stools, Denies nausea, Denies odynophagia and Denies vomiting Reports no additional complaints Musc Reports no additional complaints Neuro Reports no additional complaints Psych Reports no additional complaints Endo Reports no additional complaints Physical Exam Vital Signs: Last Vital Signs Pulse 66 09/04/24 11:07 BP 132/68 09/04/24 11:07 Pulse Ox 100 09/04/24 11:07 Oxygen Delivery Method Room Air 09/04/24 11:07 BMI result Body Mass Index 30.9 Const General: healthy appearing and no acute distress Nutritional Appearance: obese Orientation/consciousness: patient oriented x3 Resp Effort & Inspection: normal respiratory effort, able to speak in complete sentences, no tracheal deviation and symmetric chest movement Auscultation: clear to auscultation bilaterally Cardio Rate: regular rate GI Inspection: Yes normal to inspection, No distended and Yes obesity Palpation (GI): Soft to palpation, not firm, nontender and No hepatosplenomegaly present Auscultation: normal bowel sounds General: Yes no CVA tenderness Back/Spine/Pelvis Back: no CVA tenderness Skin General skin exam: elasticity normal, turgor normal and dry skin Neuro General: patient oriented x3 Psych Appearance: grossly normal Mental Status: mental status grossly normal Assessment & Plan Assessment & Plan (1) Multiple food allergies: Code(s): Z91.018 - Allergy to other foods (2) GERD (gastroesophageal reflux disease): Code(s): K21.9 - Gastro-esophageal reflux disease without esophagitis Qualifiers: Esophagitis presence: esophagitis presence not specified Qualified Code(s): K21.9 - Gastro-esophageal reflux disease without esophagitis (3) Constipation: Code(s): K59.00 - Constipation, unspecified Qualifiers: Constipation type: slow transit constipation Qualified Code(s): K59.01 - Slow transit constipation (4) Early satiety: Code(s): R68.81 - Early satiety (5) Dysgeusia: Code(s): R43.2 - Parageusia Plan Follow fiber, small and more often meals due to mild gastroparesis. Making sure that patient is emptying her bowels well. May take senna as needed. Continue taking as omeprazole. Avoid dietary triggers in late night snacking. Staying upright for minimum 3 hours after meals discussed with patient. Patient will be sent for upper GI with barium swallow. Patient reports feeling that food is coming up and having dysgeusia frequently. Patient was also encouraged to follow FODMAP diet. List of food recommended as well as list of food to avoid given to patient. Patient will follow-up in 3-4 months, sooner on as needed basis. She is agreeable to this plan and verbalizes understanding of instructions. She was given the opportunity to ask questions and all questions answered. Thank you for allowing me to participate in her care Orders: Orders [place] upper GI w Ba Swallow Today K21.9 - Gastro-esophageal reflux disease without esophagitis Coding Level of Care Code Est Pt Level 4 (75940) Complex EM visit Add On G2211 Diagnoses Multiple food allergies Z91.018 Gastroesophageal reflux disease, unspecified whether esophagitis present K21.9 Esophagitis presence: esophagitis presence not specified Slow transit constipation K59.01 Constipation type: slow transit constipation Early satiety R68.81 Dysgeusia R43.2 Time Spent (min) 35 Comment 25 minute spent with patient and additional 10 minutes spent reviewing her records
--- OUTSIDE RECORDS SUMMARY | 2024-09-04 11:52 | XMS_ITS | Encounter Summary ---
Author Organization [employer] Address 75 [facility] 7t [place] [address] Care Team Providers Care Railroad Car Letterer Name Role Phone Fern Morley MD Primary Care Provider + Mike Mack Unavailable Unavailable Encounter Details Date Type Department Care Team (Latest Contact Info) Description 09/02/2024 Travel Social History Tobacco Use Types Packs/Day [...] Description 09/09/2024 9:30 AM EDT Office Visit [facility] OPTOMETRY [address] [place] [address] Majo Castillo, OD [address] [place] [address] documented as of this encounter Visit Diagnoses Not on filedocumented in this encounter Additional Health Concerns Assessment Noted Time PHQ-9 Depression Total Score: 6 10/01/19 24 10:52 AM EDT documented as of this encounter Care Teams Railroad Car Letterer Relationship Specialty Start Date End Date Fern Morley MD [address] [place] [address] PCP - General Family Medicine 06/28/20 Mike Mack FNP [address] [place] [address] Nurse Practitioner Family Medicine 04/03/23 documented as of this encounter
--- OUTSIDE RECORDS SUMMARY | 2024-09-04 11:52 | XMS_ITS | Encounter Summary ---
Author Organization [employer] Address 75 [facility] 7 [place] [address] Care Team Providers Care Merchandise Executive Name Role Phone Fern Morley MD Primary Care Provider + Mike Mack Unavailable Unavailable Reason for Visit * Reason Comments Med Refill Encounter Details Date Type Department Care Team (Late st Contact Info) Description 06/17/[address] [facility] MEDICINE [address] [place], [place] [phone] Fern Morley MD [address] [place], [place] [phone] Social History Tobacco Use Types Packs/Day Years [...] AM EDT Office Visit [facility] OPTOMETRY [address] [place] [address] Majo Castillo, OD [address] [place] [address] documented as of this encounter Visit Diagnoses Not on filedocumented in this encounter Additional Health Concerns Assessment Noted Time PHQ-9 Depression Total Score: 10 023 11:14 AM EST documented as of this encounter Care Teams Merchandise Executive Relationship Specialty Start Date End Date eFrn Morley MD [address] [place] [address] PCP - General Family Medicine 06/28/20 Mike Mack FNP [address] [place] [phone] Nurse Practitioner Family Medicine 04/03/23 documented as of this encounter
--- OUTSIDE RECORDS SUMMARY | 2024-09-04 11:52 | XMS_ITS | Clinical Summary ---
Author Organization [employer] Address [address] [place] [address] 7 [place] [address] Care Team Providers Care Dry House Worker Name Role Phone Fern Morley MD Primary [...] 24 Active hydrOXYzine HCl (Atarax) 10 MG tabletIndications: Bipolar affective disorder, current episode mixed, current episode severity unspecified (CMS/HCC) Take 1 tablet (10 mg) by mouth every 6 (six) hours if needed for anxiety. 90 tablet 2 10/01/19 24 Active melatonin 3 MG tablet Take 1 tablet (3 mg) by mouth if needed at bedtime for sleep. 30 tablet 11 10/01/19 24 Active lisinopril 10 MG tabletIndications: Primary hypertension TAKE 1 TABLET(10 MG) BY MOUTH IN THE MORNING 90 tablet 3 11/19/19 24 Active ibuprofen 800 MG tabletIndications: Primary osteoarthritis of both knees Take 1 tablet [...] 24 Active esomeprazole (NexIUM) [address] capsuleIndications :Esophagitis Take 1 capsule (40 mg) by mouth [...] 30 tablet 11 06/16/19 25 026 Active Active Problems Problem Noted Date Diagnosed Date [...] be referred for pelvic US or addtl DIRECTOR OF FIRST IMPRESSIONS evaluation. She understood that there may be [...] lisinopril same dose. She's off amlodipine, last chicken picker rx was On 08/2022 x 90d [...] issue, I gave her information re [facility] to make an appt for counseling and [...] as usual. Any issues or concerns, call [facility]. All her questions were answered and [...] prio to next appt w me in Counseled re more frequent low calorie/carb meals. [...] controlled, continue Risperdal [facility] D/w patient re relaxation techniques including distraction, breathing exercises. She feels safe at home and is able to contract for safety Encounters Date Type Department Care Team Description 09/02/2024 Travel 07/02/2024 Telephone [facility] [address] [place] [address] Fern Morley MD May recall 06/25/2024 Telephone [facility] [address] [place] [address] Fern Morley MD Stable Letter 06/17/2024 Telephone [facility] [address] [place], [place] [phone] Fern Morley MD Stable Lab Letter 06/16/2024 9:15 AM EST Procedure Visit [address] [address] Fern Morley MD Encounter for cervical Pap smear with pelvic exam (Primary Dx); Type 2 diabetes mellitus without complication, without long-term current use of insulin ([facility]); Screening examination for STD (sexually transmitted disease); Bunion of left foot; Arthritis of both hands; Gastroesophageal reflux disease with esophagitis, unspecified whether hemorrhage; Class 1 obesity due to excess calories with serious comorbidity and body mass index (BMI) of 31.0 to 31.9 in adult; Pelvic pain in female; Screening mammogram for breast cancer; Dietary counseling; Exercise counseling 06/16/2024 Orders Only [address] [address] Fern Morley MD 06/16/2024 Travel 06/15/[address] [address] Flora Garza [place] Chart Prep from Last 3 Months Immunizations Name Administration [...] Description 09/09/2024 9:30 AM EDT Office Visit [facility] [address] [place] [address] JonathanMajo william, OD [address] [place] [address] Health Maintenance Due Date Last Done Comments CT Colonography 1972 FIT DNA/Cologuard 1972 FIT 1972 FOBT 1970 Sigmoidoscopy 1972 Alcohol/Substance Use Screening 1984 Family Planning (PISQ) 08/02/1987 Hepatitis B Vaccines (1 of 3 - 19+ 3-dose series) 08/02/1991 Zoster Vaccines (1 of 2) 09/20/2022 Pneumococcal Vaccine: 50+ Years (2 of 2 - PCV) 01/09/2023 01/09/2022 DTaP/Tdap/Td Vaccines (2 - Td or Tdap) 07/07/2023 07/07/2013, 07/29/2004 SDOH Screening 07/28/2023 07/27/2022 COVID-19 Vaccine (3 - 2023- season) 2024 03/22/2021, 03/01/2021 Influenza Vaccine (#1) 2024 01/31/2018, 2013 Diabetes: Hemoglobin A1C 08/21/2024 024, 03/11/2023, 07/27/2022, Additional history exists Depression Screening 09/30/2024 10/01/2023, 10/01/19 24 Eye Exam 10/17/2024 10/17/2022, 11/2022, 10/17/2022, Additional history exists Diabetes: Foot Exam 06/16/2025 06/16/2024, 06/16/2024, 06/16/2024, Additional history exists Diabetes: Urine Protein Screening 06/16/2025 06/16/2024, 10/10/2021 Lipid Panel 06/16/2025 06/16/2024, 09/11, 10/06/2021, Additional history exists Tobacco Screening 06/16/2025 06/16/2024 Mammogram 07/14/2026 07/14/2024, 02/12, 03/10/2018 Cervical Cancer Screening 06/16/2029 HPV/Cotest 06/16/2029 06/16/2024, [...] Procedure Name Priority Date/Time Associated Diagnosis Comments BI MAMMOGRAM SCREENING TOMOSYNTHESIS BILATERAL Routine 07/14/2024 12:15 PM EST Screening mammogram for breast cancer SYPHILIS SCREEN Routine 06/16/2024 10:10 AM EST [...] complication, without long-term current use of insulin ([facility]) Esophagitis CBC WITH AUTO DIFFERENTIAL Routine 06/16/2024 10:10 AM EST Esophagitis Gastroesophageal reflux disease with esophagitis, unspecified whether hemorrhage ALBUMIN, RANDOM URINE W/CREATININE Routine 06/16/2024 10:10 AM EST Type 2 diabetes mellitus without complication, without long-term current use of insulin (CMS/HCC) BASIC METABOLIC PANEL Routine 06/16/2024 10:10 AM EST Type 2 diabetes mellitus without complication, without long-term current use of insulin ([facility]) LIPID PANEL WITH REFLEX TO DIRECT LDL Routine 06/16/2024 10:10 AM EST Type 2 diabetes mellitus without complication, without long-term current use of insulin ([facility]) CHLAMYDIA/N. GONORRHOEAE RNA, TMA, UROGENITAL Routine 06/16/2024 10:10 AM EST Encounter for cervical Pap smear with pelvic exam BACTERIAL VAGINOSIS PANEL Routine 06/16/2024 9:50 AM EST PAP SMEAR Routine 06/16/2024 12:00 AM EST Encounter for cervical Pap smear with pelvic exam HPV DNA, LOW/HIGH RISK Routine 12:00 AM EST POCT GLYCATED HEMOGLOBIN, TOTAL Routine 02/21/2024 9:20 AM EDT Type 2 diabetes mellitus without complication, without long-term current use of insulin (CMS/HCC) HM COLONOSCOPY Routine 10/09/2022 from Last 3 Months or Most Recently Relevant to Health Maintenance Results * BI Mammogram Screening Tomosynthesis Bilateral (07/14/2024 12:15 PM EST) Anatomical Region Laterality Modality Breast Bilateral Mammography 07/14/2024 12:1 5 PM EST Narrative 07/16/2024 11:43 AM EST ? [facility] ? [address] ?[place] [address] ? Mammography Report ? Signed ? Patient: Lott,Blanca I ?MR#: [id number] ?? 6 ? : 1970 ?Acct:[id number] ? Age/Sex: 53 / F ?ADM Date: 07/14/24 ? Loc: HO.MAMMO ? Attending Dr: Fern Morley MD ? Ordering Physician: Fern Morley MD ?Results: 1Ne ?? gative ? Date of Service: 07/14/24 ?Follow Up: 1 Year From Orig ?? inal Mammogram ? Procedure(s): MM tomosynthesis screening BI ?? Accession Number(s): [id number] ? cc: Fern Morley MD ? EXAMINATION: ?? MM SCREENING DIGITAL BREAST TOMOSYNTHESIS, BILATERAL ? CLINICAL INFORMATION: ? Screening. Asymptomatic. ? COMPARISON: ?? Mammography: Comparison is made with available priors ? TECHNIQUE: ?? Digital breast mammography with tomosynthesis is performed in both the ?? craniocaudal and mediolateral oblique views along with computer-aided ?? detection (CAD). ? FINDINGS: ?? There are scattered areas of fibroglandular density (ACR BI-RADS breast ?? composition Category b). ? There are no significant masses, abnormal calcifications, or other ?? abnormalities. ? MM/MM tomosynthesis screening BI ?? IMPRESSION: ?? No mammographic evidence of malignancy. ? ASSESSMENT: ? BI-RADS BI-RADS 1 - Negative ? RECOMMENDATION: ?? Routine annual mammography screening. ? 1 year F/U ? This examination should not preclude the clinical evaluation of a ?? suspicious palpable abnormality. ? This patient's information was entered into a reminder system with a ?? target due date for their next mammogram. ? Electronically signed by: ??Alyssa Spence DO ??07/16/2024 11:40 AM EST ? Dictated By: ?Alyssa Spence DO ? Signed By: ?<Electronically signed by Alyssa Spence, DO in OV> ? 07/16/24 1140 ? DD/ 1215 ? TD/TT: 07/14/24 1215 ? Combination Welder Apprentice: ? Procedure Note Shoaib Castillo - 07/16/2024 [place] [facility] [address] [place], [place] [id number] Mammography Report Signed Patient: Blanca Lott [facility]#: [id number] 6 : 1970Acct:[id number] Age/Sex: 53 / FADM Date: 07/14/24 Loc: HO.MAMMO Attending Dr: Fern Morley MD Ordering Physician: Fern Morleyesults: 1Ne gative Date of Service: 07/14/24Follow Up: 1 Year From Orig inal Mammogram Procedure(s): MM tomosynthesis screening BI Accession Number(s): [id number] cc: Fern Morley MD EXAMINATION: MM SCREENING DIGITAL BREAST TOMOSYNTHESIS, BILATERAL CLINICAL INFORMATION: Screening. Asymptomatic. COMPARISON: Mammography: Comparison is made with available priors TECHNIQUE: Digital breast mammography with tomosynthesis is performed in both the craniocaudal and mediolateral oblique views along with computer-aided detection (CAD). FINDINGS: There are scattered areas of fibroglandular density (ACR BI-RADS breast composition Category b). There are no significant masses, abnormal calcifications, or other abnormalities. MM/MM tomosynthesis screening BI IMPRESSION: No mammographic evidence of malignancy. ASSESSMENT: BI-RADS BI-RADS 1 - Negative RECOMMENDATION: Routine annual mammography screening. 1 year F/U This examination should not preclude the clinical evaluation of a suspicious palpable abnormality. This patient's information was entered into a reminder system with a target due date for their next mammogram. Electronically signed by: Alyssa Spence DO 07/16/2024 11:40 AM EST Dictated By: Alyssa Spence DO Signed By: <Electronically signed by Alyssa Spence DO in OV> 07/16/24 1140 DD/ 1215 TD/TT: 07/14/24 1215 Combination Welder Apprentice: Fern Morley MD IMG BI PROCEDURES Final Result * Syphilis Screen (06/16/2024 10:10 AM EST) Syphilis Screen Nonreactive Nonreactive [facility] Blood 06/16/2024 10:1 0 AM EST 06/16/2024 11:24 AM EST us Fern Morley MD LAB BLOOD ORDERABLES Fin al Result [facility] [address] [place] [address] [phone] * Vitamin D, 25-Hydroxy, Total, Immunoassay (06/16/2024 10:10 AM EST) Vitamin D 25-OH Total 52.7 >30 ng/mL [facility] Comment:Health Based Referen ce Values*< 20 ng/mL [id number] ng/mL Insufficient> 30 ng/mL Sufficient*Ruddy GILBERT. N [...] ORDERABLES Fin al Result Performing Organization Address [facility] Co sd Phone Number [facility] [address] [place] [phone] * TSH with Reflex to Free T4 (06/16/2024 10:10 AM EST) TSH reflex Free T4 0.52 0.32 - 4.0 uIU/mL [facility] Blood 06/16/2024 10:1 0 AM EST 06/16/2024 11:24 AM EST Fern Morley MD LAB BLOOD ORDERABLES Fin al Result Performing Organization Address [facility] Co sd Phone Number [facility] [address] [place] [phone] * (ABNORMAL) Lipid Panel with Reflex to Direct LDL (06/16/2024 10:10 AM EST) Triglycerides 90 <150 mg/dL [facility] Comment:Desirable Triglyceri de: less than 150 mg/dLBorderline High Triglyceride 150-199 mg/dLHigh Triglyceride: 200-499 mg/dLVery High Triglyceride: greater than or equal to 5OO mg/dL Cholesterol 183 <200 mg/dL [facility] Comment:Desirable Cholestero l: less than 200 mg/dLBorderline High Cholesterol: 200-239 mg/dLHigh Cholesterol: greater than 239 mg/dL LDL Cholesterol Calculated 112(H) <100 mg/dL [facility] Comment:Desirable LDL: less than 100 mg/dLNear Optimal/Above Optimal LDL: 110- 129 mg/dLBorderline High LDL: 130-159 mg/dLHigh LDL: 160-189 mg/dLVery High LDL: greater than or equal to 190 mg/dL HDL Cholesterol 53 >40 mg/dL [facility] Comment:Desirable HDL: great er than 40 mg/dL Note: This HDL assay may give artificially low results in patients with liver disease. Blood 06/16/2024 10:1 0 AM EST 06/16/2024 11:24 AM EST us Fern Morley MD LAB BLOOD ORDERABLES Fin al Result Performing Organization Address [facility] de Phone Number [facility] [address] [place] [phone] * Hepatitis Panel, General (06/16/2024 10:10 AM EST) Hepatitis A IgM Nonreactive Nonreactive [facility] Comment:IgM antibodies to VELASQUEZ V not detected; does not exclude earlyacute or recovered HAV infection. ~Hepatitis B Surface Antibody REACTIVE Nonreactive [facility] Comment:REACTIVE: > 11.99 mI U/mL Hepatitis B Core Antibody Nonreactive Nonreactive [facility] Hepatitis C Antibody Nonreactive Nonreactive [facility] Comment:Antibodies to HCV no t detected; does not exclude early acuteHCV infection. Hepatitis B Surface Ag Negative Negative [facility] Blood 06/16/2024 10:1 0 AM EST 06/16/2024 11:24 AM EST Fern Morley MD LAB BLOOD ORDERABLES Fin al Result Performing Organization Address [facility] Co de Phone Number [facility] [address] [place] [phone] * Albumin, Random Urine W/Creatinine (06/16/2024 10:10 AM EST) Creatinine, Urine 246.37 mg/dL [facility] Microalbumin Urine 10.0 mg/L [facility] Microalbum Creatinine Ratio Ur 4.0 <30 ug/mg cr [facility] Comment:Albumin/Creatinine R atio Reference Ranges: Normal: < 30 ug/mg creatinine Microalbuminuria: 30 - 300 ug/mg creatinineClinical Albuminuria: > 300 ug/mg creatinine Urine (Urine, Random) 06/16/2024 10:10 AM EST 06/16/2024 11:18 AM EST Fern Morley MD LAB URINE ORDERABLES Fin al Result [facility] [address] [place] [phone] * (ABNORMAL) CBC auto differential (06/16/2024 10:10 AM EST) White Blood Count 6.9 4.8 - 10.8 X10*3/uL [facility] Red Blood Count 5.45 4.20 - 5.50 X10*6/uL [facility] Hemoglobin 14.4 12.0 - 16.0 g/dl [facility] Hematocrit 43.1 37.0 - 47.0 % [facility] Mean Corpuscular Volume 79.1(L) 80.0 - 98.0 fL [facility] Mean Corpuscular Hemoglobin 26.4(L) 27.0 - 33.0 pg [facility] Mean Corpuscular HGB Conc 33.4 31.0 - 35.0 g/dl [facility] Red Cell Distribution Width 13.4 11.0 - 16.0 % [facility] Platelet Count 275 160 - 400 X10*3/uL [facility] Mean Platelet Volume 11.5 9.4 - 12.3 fL [facility] Neutrophils Percent Auto 60.2 45 - 73 % [facility] Imm Gran Pct Auto 0.1 0.0 - 0.4 % [facility] Lymphocytes Percent Auto 29.3 20 - 40 % [facility] Monocytes Percent Auto 6.0 2 - 11 % [facility] Eosinophils Percent Auto 3.8 0 - 4 % [facility] Basophils Percent Auto 0.6 0 - 2 % [facility] NRBC Pct Auto 0.0 0.0 - 0.2 /100WBC [facility] Neutrophils Absolute Auto 4.1 2.0 - 8.3 x10*3/uL [facility] Imm Gran Abs Auto 0.01 0.00 - 0.03 X10*3/uL [facility] Lymphocytes Absolute Auto 2.0 1.2 - 4.9 X10*3/uL [facility] Monocytes Absolute Auto 0.4 0.1 - 1.2 X10*3/uL [facility] Eosinophils Absolute Auto 0.3 0.0 - 0.4 X10*3/uL [facility] Basophils Absolute Auto 0.0 0.0 - 0.2 X10*3/uL [facility] NRBC Abs Auto 0.000 0.0 - 0.012 X10*3/uL [facility] Blood Venous blood specimen / Unknown 06/16/2024 10:10 AM EST 06/16/2024 11:24 AM EST us Fern Morley MD LAB BLOOD ORDERABLES Fin al Result [facility] [address] [place] [phone] * Chlamydia/N. Gonorrhoeae RNA, TMA, Urogenitial (06/16/2024 10:10 AM EST) CT PCR NOT DETECTED Not Detect. [facility] Comment:A not detected test [...] psychologicalconsequences. NG PCR NOT DETECTED Not Detect. [facility] Comment:A not detected test [...] AM EST 06/16/2024 11:18 AM EST Narrative [facility] - 06/16/2024 1:01 PM EST Urine us Fern Morley MD LAB MICROBIOLOGY - GENER AL ORDERABLES Final Result [facility] [address] [place] [phone] * HIV-1/2 Antigen and Antibodies, Fourth Generation, with Reflexes (06/16/2024 10:10 AM EST) HIV AB/AG Nonreactive Nonreactive [facility] Comment:HIV-1 p24 Ag and/or HIV-1/HIV-2 Ab not detected.A test result that is nonreactive does not exclude thepossibility of exposure to or infection with HIV-1 and/orHIV-2. Nonreactive results in this assay for individualswith prior exposure to HIV-1 and/or HIV-2 may be due toantigen and antibody levels that are below the limit ofdetection of this assay.[facility] HIV Ag/Ab Combo assay result andsupplemental assay results should be interpreted inconjunction with the patient's clinical presentation,history and other laboratory results. If the results areinconsistent with clinical evidence, additional testing issuggested to confirm the result. Blood Venous blood specimen / Unknown 06/16/2024 10:10 AM EST 06/16/2024 11:24 AM EST us Fern Morley MD LAB BLOOD ORDERABLES Fin al Result [facility] [address] [place], [place] [phone] * (ABNORMAL) Basic Metabolic Panel (06/16/2024 10:10 AM EST) Sodium 139 135 - 145 mmol/L [facility] Potassium 4.0 3.3 - 5.1 mmol/L [facility] Chloride 108 96 - 108 mmol/L [facility] Carbon Dioxide 21(L) 22 - 29 mmol/L [facility] Anion Gap 14 12 - 20 [facility] Urea Nitrogen (BUN) 13 9 - 16 mg/dL [facility] Creatinine, Serum 0.88 0.5 - 1.4 mg/dL [facility] Estimated Glomerular Filt Rate >60 [facility] Comment:Chronic Kidney Disea se: Estimated GFR < 60 mL/min/1.10b7Obpfep Kidney Disease: Estimated GFR < 15 mL/min/1.73m2 Glucose 113 60 - 115 mg/dL [facility] Calcium 9.3 8.4 - 10.2 mg/dL [facility] Blood Venous blood specimen / Unknown 06/16/2024 10:10 AM EST 06/16/2024 11:24 AM EST us Fern Morley MD LAB BLOOD ORDERABLES Fin al Result Performing Organization Address [facility] Co de Phone Number [facility] [address] [place] [phone] * Bacterial Vaginosis (06/16/2024 9:50 AM EST) TRICHOMONAS VAGINALIS DETECTION BY PCR NOT DETECTED Not Detect [facility] BACTERIAL VAGINOSIS DETECTION BY PCR NEGATIVE Negative [facility] Comment:The BV organism targ ets [...] DETECTION BY PCR NOT DETECTED Not Detect [facility] Shefali glab krusei PCR NOT DETECTED Not Detect [facility] 06/16/2024 9:50 AM EST 06/16/2024 2:25 PM EST us Fern Morley MD LAB MICROBIOLOGY - GENER AL ORDERABLES Final Result Performing Organization Address [facility] Co de Phone Number [facility] [address] [place] [phone] * HPV DNA, Low/High Risk (06/16/2024 12:00 AM EST) HPV High Risk Negative Negative [facility] HPV Genotype 16 Negative Negative [facility] HPV Genotype 18 Negative Negative [facility] Comment:HPV testing performe d at [facility] (CLIA#[id number]), [address] [place] [address].Testing for HPV was performed using the [employer]system. The presence of HPV in the female [...] detected. 06/16/2024 06/17/2024 9:1 5 AM EST us Fern Morley MD LAB BLOOD ORDERABLES Fin al Result [facility] [address] [place] [phone] * Pap Smear (06/16/2024 12:00 AM EST) Swab Cervical swab / Unknown 06/16/2024 06/17/2024 9:15 AM EST Narrative [facility] - 06/25/2024 1:12 PM EST ----- ------- Name: Blanca Lott I ?Age/Sex: 53/F ? : 1970 Unit#: [id number] ?? Attend Dr: Fern Morley MD ?Re06/16/24 ?Status: DEP REF ? Location: HO.LNP ?Disch: ? ----- ------- SPEC : [id number] ? RECD: 06/17/24 ? STATUS: ??SOUT ? REQ NUM: [id number] ? EMILY: 06/16/24 ? SUBM DR: Fern [...] Morley MD LAB CYTOLOGY ORDERABLES Final Result [facility] [address] [place] [phone] * (ABNORMAL) POCT HGB A1C (02/21/2024 9:20 AM EDT) Pathologist [facility] Hemoglobin A1C 6.1(A) 4.0 - 6.0 % QC Media Lot # [id number] Lot# Expiration Date [id number] Blood 02/21/2024 9:20 AM EDT Fern Morley MD POINT OF CARE TEST ENTER /EDIT ORDERABLES Final Result * Hm Colonoscopy (10/09/2022) Colonoscopy Normal Normal [facility] 10/09/2022 Fern Morley MD HEALTH MAINTENANCE Final Result [facility] [address] [place] [phone] from Last 3 Months or Most Recently Relevant to Health Maintenance Insurance [facility] FULL [facility] G[facility] Care Teams Dry House Worker Relationship Specialty Start Date End Date Fern Morley MD [address] [place] [phone] PCP - General Family Medicine 06/28/20 Mike Mack FNP [address] [place] [address] [place] [address] Nurse Practitioner Family Medicine 04/03/23
--- OUTSIDE RECORDS SUMMARY | 2024-09-04 11:52 | XMS_ITS | Clinical Summary ---
Author Organization [facility] Address [address] [place] [phone] Care Team Providers Care Asian Studies Program Chair Name Role Phone Unavailable Primary Care Provider [...] Vaccines (1 of 2) 2022 COVID-19 Vaccine (1 - 2023-2 5 season) 2024 Influenza Vaccine (Season Ended) 2025 HIB Vaccines Aged Out No longer eligi [...] age to complete this topic Meningococcal B Vaccine Aged Out No l onger eligible based on patient's age to complete [...]
--- OUTSIDE RECORDS SUMMARY | 2024-09-04 11:52 | XMS_ITS | Encounter Summary ---
Author Organization [employer] Address [address] [facility] 7 [place] [address] Care Team Providers Care Supervisor Fertilizer Processing Name Role Phone Fern Morley MD Primary Care Provider + Mike Mack Unavailable Unavailable Reason for Visit * Reason Comments Med Refill Encounter Details Date Type Department Care Team (Late st Contact Info) Description 05/08/2024 Refill [facility] [address] [place], [place] [phone] Fern Morley MD [address] [place], [place] [phone] Primary osteoarthritis of both knees Social History [...] Description 09/09/2024 9:30 AM EDT Office Visit [facility] [address] [place] [address] Jonathan, Majo, OD [address] [place] [address] documented as of this encounter Visit Diagnoses Diagnosis Primary osteoarthritis of both knees documented in this encounter Additional Health Concerns Assessment Noted Time PHQ-9 Depression Total Score: 6 10/01/19 24 10:52 AM EDT documented as of this encounter Care Teams Supervisor Fertilizer Processing Relationship Specialty Start Date End Date Fern Morley MD [address] [place] [address] PCP - General Family Medicine 06/28/20 Mike Mack FNP [address] [place] [address] Nurse Practitioner Family Medicine 04/03/23 documented as of this encounter
== END 2024-09-04 11:47 | disposition home or self-care (01) ==
LOC: HO.HGI 11:04
PROVIDERS: PCP Internal Medicine; Visit Provider Nurse Practitioner Family
DX: Z91.018 Allergy to other foods (principal); K21.9 Gastro-esophageal reflux disease without esophagitis; K59.01 Slow transit constipation; R68.81 Early satiety; R43.2 Parageusia
CPT/HCPCS: 99214; G2211

== ENCOUNTER → 2024-09-04 11:03 | Outpatient (BNVA) | payer OTHER, SELFPAY | PROVIDERS: PCP Internal Medicine; Visit Provider Nurse Practitioner Family | DX: K21.9 Gastro-esophageal reflux disease without esophagitis (principal); K59.01 Slow transit constipation; R68.81 Early satiety; R43.2 Parageusia; Z91.018 Allergy to other foods | CPT/HCPCS: 99212 ==

== ENCOUNTER 2024-11-09 08:27 | Outpatient (REF) | payer OTHER, SELFPAY ==
--- NOTE | ~2024-11-09 | FL_ITS ---
EXAMINATION: XR UPPER GI SERIES WITH SMALL BOWEL CLINICAL INFORMATION: Gastroesophageal reflux disease COMPARISON: None available. TECHNIQUE: Routine upper GI air contrast study and barium swallow was performed in upright and lying position. FINDINGS: Following oral administration of thick barium and effervescent granules is normal propagation bolus from the oral cavity through the pharynx, esophagus into stomach without any evidence of obstruction, narrowing or stricture. No extrinsic compression seen. On placing patient supine and prone lying there increased secretions with no ulcerations or erosions visualized. There is mild gastroesophageal reflux without hiatal hernia. The course, caliber and peristalsis of the stomach, duodenal bulb and sweep is normal. FLUOROSCOPY TIME: 2 minutes and 29 seconds DOSE AREA PRODUCT: 60.71 uGy-m2 (microgray-meter squared) FL/FL upper GI w air w Ba Swallow IMPRESSION: Unremarkable upper GI air contrast study. Electronically signed by: Percy Diop MD 11/09/2024 10:09 AM EDT
--- OUTSIDE RECORDS SUMMARY | 2024-11-09 08:35 | XMS_ITS | Encounter Summary ---
Author Organization [employer] Address [address] [place] [address] 7 [place] [address] Care Team Providers Care Electric Switch Tester Name Role Phone Fern Morley MD Primary Care Provider + Mike Mack Unavailable Unavailable Reason for Visit * Reason Comments Med Refill Encounter Details Date Type Department Care Team ([facility] st Contact Info) Description 05/08/2024 Refill [facility] [address] [place], [place] [phone] Fern Morley MD [address] [place] [address] Primary osteoarthritis of both knees Social History [...] as of this encounter Plan of Treatment Not on file documented as of this encounter Visit Diagnoses Diagnosis Primary osteoarthritis of both knees documented in this encounter Additional Health Concerns Assessment Noted Time PHQ-9 Depression Total Score: 6 10/01/19 24 10:52 AM EDT documented as of this encounter Care Teams Electric Switch Tester Relationship Specialty Start Date End Date Fern Morley MD [address] [place] [address] PCP - General Family Medicine 06/28/20 Mike Mack FNP [address] [place] [address] Nurse Practitioner Family Medicine 04/03/23 documented as of this encounter
== END 2024-11-09 08:28 | disposition home or self-care (01) ==
LOC: HO.XRAY 08:27
PROVIDERS: PCP Internal Medicine; Visit Provider Nurse Practitioner Family
DX: K21.9 Gastro-esophageal reflux disease without esophagitis (principal)
CPT/HCPCS: 74246

== ENCOUNTER → 2024-11-09 08:30 | Outpatient (BNV) | payer OTHER, SELFPAY | PROVIDERS: PCP Internal Medicine; Visit Provider Radiology Diagnostic Radiology | DX: K21.9 Gastro-esophageal reflux disease without esophagitis (principal) | CPT/HCPCS: 74246 ==

== ENCOUNTER 2025-02-02 11:04 | Outpatient (AMB) | payer OTHER, SELFPAY ==
--- NOTE | 2025-02-02 11:05 | A.OFFVIS_ITS ---
Vital Signs 02/02/25 11:08 Height 5 ft 1 in Weight 155 lb BMI 29.3 BP 142/80 H Blood Pressure Location Rt brachial Position Sitting Pulse 78 Pulse Source Pulse Oximeter Pulse Oximetry (%) 100 Oxygen Delivery Method Room Air Intake Visit Reasons: 4mo f/u gerd gastroparesis Intake Note: ESTABLISHED PATIENT for GERD, constipation + duodenitis mgmt. Chief Complaint; C.O. N+V, GERD, + diarrhea, chronic + intermittent episodes. No additional concerns per pt. Supervisor Fiberglass Boat Assembly Required: No Accompanied by: Self / Same As Patient Allergies latex (LATEX) Allergy (Unknown, Verified 02/02/25 11:05) Rash seafood Allergy (Verified 02/02/25 11:05) Swelling cinnamon Adverse Reaction (Severe, Verified 02/02/25 11:05) Diarrhea Penicillins (PCN) Adverse Reaction (Severe, Verified 02/02/25 11:05) nausea, severe diarrhea, vomiting amoxicillin Adverse Reaction (Unknown, Verified 02/02/25 11:05) GI symptoms anything ending in cillin Allergy (Unknown, Uncoded 02/02/25 11:05) Unknown PICKLES Allergy (Unknown, Uncoded 02/02/25 11:05) Rash HPI HPI 4mo f/u gerd gastroparesis: Details: LAST VISIT: Multiple food allergies GERD (gastroesophageal reflux disease) Constipation Early satiety Dysgeusia Plan Follow fiber, small and more often meals due to mild gastroparesis. Making sure that patient is emptying her bowels well. May take senna as needed. Continue taking as omeprazole. Avoid dietary triggers in late night snacking. Staying upright for minimum 3 hours after meals discussed with patient. Patient will be sent for upper GI with barium swallow. Patient reports feeling that food is coming up and having dysgeusia frequently. Patient was also encouraged to follow FODMAP diet. List of food recommended as well as list of food to avoid given to patient. Patient will follow-up in 3-4 months, sooner on as needed basis. She is agreeable to this plan and verbalizes understanding of instructions. She was given the opportunity to ask questions and all questions answered. ? Thank you for allowing me to participate in her care Orders FL upper GI w Ba Swallow Today K21.9 TODAY'S VISIT Patient is here today for follow-up and to discuss upper GI series. Patient had normal study, reports that her symptoms of acid reflux are suppressed for the most part. However patient reports occasional epigastric pain and postprandial loose stools. Patient also reports abdominal bloating. Patient denies dyspepsia, dysphagia or odynophagia. She is taking Nexium in the morning and sucralfate at bedtime. Feels like it is helping a little better. Denies eating late at night. He is taking senna to help you moving her bowels as needed as at this point patient is having more loose stools than being constipated. Patient is not taking any extra fiber to help her bulk stools. [facility] Medical History Duodenitis HTN (hypertension) Diabetes type 2, controlled Bipolar affective disorder Asthma Chronic GERD Osteoarthritis of lower back Surgical History History of esophagogastroduodenoscopy (EGD) Hx of colonoscopy S/P biopsy of cervix History of repair of left rotator cuff Family History Father HTN (hypertension) High cholesterol Paternal Uncle Heart disease Paternal Aunt Heart disease Social History Household Members: Family Alcohol intake: current Alcohol intake frequency: holidays/special occasions only Patient Tobacco Use Status: Current everyday Tobacco user Tobacco use type: Cigarette Cigarette Packs Per Day: 0.5 Cigarettes Per Day: 5 Years Smoked: 30 Review of Systems Const Denies weight gain and Denies weight loss ENT Reports no additional complaints, Denies dysphagia and Denies odynophagia Card Reports no additional complaints Resp Reports no additional complaints GI Denies abdominal pain, Denies belching, Denies melena, Reports bloating, Reports constipation, Denies dysphagia, Denies excessive flatus, Reports early satiety, Denies dyspepsia, Reports heartburn, Denies diarrhea, Reports loose stools, Denies nausea, Denies odynophagia and Denies vomiting Reports no additional complaints Musc Reports no additional complaints Neuro Reports no additional complaints Psych Reports no additional complaints Endo Reports no additional complaints Physical Exam Vital Signs: Last Vital Signs Pulse 78 02/02/25 11:08 BP 142/80 H 02/02/25 11:08 Pulse Ox 100 02/02/25 11:08 Oxygen Delivery Method Room Air 02/02/25 11:08 BMI result Body Mass Index 29.3 Const General: healthy appearing and no acute distress Nutritional Appearance: obese Orientation/consciousness: patient oriented x3 Resp Effort & Inspection: normal respiratory effort, able to speak in complete sentences, no tracheal deviation and symmetric chest movement Auscultation: clear to auscultation bilaterally Cardio Rate: regular rate GI Inspection: Yes normal to inspection, No distended and Yes obesity Palpation (GI): Soft to palpation, not firm, nontender and No hepatosplenomegaly present Auscultation: normal bowel sounds General: Yes no CVA tenderness Back/Spine/Pelvis Back: no CVA tenderness Skin General skin exam: elasticity normal, turgor normal and dry skin Neuro General: patient oriented x3 Psych Appearance: grossly normal Mental Status: mental status grossly normal Results Reviewed Results Reviewed: UPPER GI SERIES WITH BARIUM SWALLOW FINDINGS: Following oral administration of thick barium and effervescent granules is normal propagation bolus from the oral cavity through the pharynx, esophagus into stomach without any evidence of obstruction, narrowing or stricture. No extrinsic compression seen. On placing patient supine and prone lying there increased secretions with no ulcerations or erosions visualized. There is mild gastroesophageal reflux without hiatal hernia. The course, caliber and peristalsis of the stomach, duodenal bulb and sweep is normal. FLUOROSCOPY TIME: 2 minutes and 29 seconds DOSE AREA PRODUCT: 60.71 uGy-m2 (microgray-meter squared) FL/FL upper GI w air w Ba Swallow IMPRESSION: Unremarkable upper GI air contrast study. Assessment & Plan Assessment & Plan (1) Multiple food allergies: Code(s): Z91.018 - Allergy to other foods (2) Gastroesophageal reflux disease: Code(s): K21.9 - Gastro-esophageal reflux disease without esophagitis Qualifiers: Esophagitis presence: esophagitis presence not specified Qualified Code(s): K21.9 - Gastro-esophageal reflux disease without esophagitis (3) Constipation: Code(s): K59.00 - Constipation, unspecified Qualifiers: Constipation type: slow transit constipation Qualified Code(s): K59.01 - Slow transit constipation (4) Early satiety: Code(s): R68.81 - Early satiety (5) Parageusia: Code(s): R43.2 - Parageusia Plan Patient will continue current treatment with Nexium and sucralfate. Sucralfate should help controlling her loose stools. She may take senna as needed if constipated. Increase fiber intake. May take [id number] fiber supplement to help her bulk stools. Adequate water intake recommended. Patient reports epigastric pain and bloating. Will send her script for Creon. She will return to the office in 6 months, however patient was encouraged to call us if she will have ongoing symptoms or any additional GI concerning symptoms. She is agreeable to this plan and verbalizes understanding of instructions. She was given the opportunity to ask questions and all questions answered. Thank you for allowing me to participate in her care Medications: Jamal Resendiz 36,000-114,000- 180,000 unit (pcvjyp-qisdveul-coppidu (pork)) administer with meals and/or snacks 1 cap PO QID 120 caps 3RF NS K86.89 - Other specified diseases of pancreas Coding Level of Care Code Est Pt Level 4 (10803) Complex EM visit Add On G2211 Diagnoses Multiple food allergies Z91.018 Gastroesophageal reflux disease, unspecified whether esophagitis present K21.9 Esophagitis presence: esophagitis presence not specified Slow transit constipation K59.01 Constipation type: slow transit constipation Early satiety R68.81 Parageusia R43.2 Time Spent (min) 40 Comment 25 minutes spent with patient and additional 15 minutes spent reviewing her records
[2025-02-02 11:08] VITALS: BP 142/80; PULSE 78; O2SAT 100; BMI 29.3
--- OUTSIDE RECORDS SUMMARY | 2025-02-02 13:48 | XMS_ITS | Encounter Summary ---
Author Organization [employer] Address [address] [place] [address] 7 [place] [address] Care Team Providers Care Gravity Prospecting Supervisor Name Role Phone Fern Morley MD Primary Care Provider + Mike Mack Unavailable Unavailable Reason for Visit * Reason Onset Date Comments OUTREACH 02/01/2025 Encounter Details Date Type Department Care Team ([facility] st Contact Info) Description 02/01/2025 Telephone [facility] MEDICINE [address] [place] [address] Fern Morley MD [address] [place] [address] OUTREACH Social History Tobacco Use Types Packs/Day Years [...] encounter Miscellaneous Notes * Telephone Encounter - Oriana Junior [place] - 02/01/2025 10:40 AM EDT T/C to pt for outreach. Pt agreed to come in on 03/27/25 at 10am. documented in this encounter Plan of Treatment Upcoming Encounters Date Type Department Care Team (Late st Contact Info) Description 03/30/2025 10:00 AM EST Office Visit [facility] [address] [place] [phone] Fern Morley MD [address] [place] [phone] documented as of this encounter Visit Diagnoses Not on filedocumented in this encounter Additional Health Concerns Assessment Noted Time PHQ-9 Depression Total Score: 6 10/01/19 24 10:52 AM EDT documented as of this encounter Care Teams Gravity Prospecting Supervisor Relationship Specialty Start Date End Date Fern Morley MD [address] [place] [phone] PCP - General Family Medicine 06/28/20 Mike Mack FNP [address] [place] [address] Nurse Practitioner Family Medicine 04/03/23 documented as of this encounter
--- OUTSIDE RECORDS SUMMARY | 2025-02-02 13:48 | XMS_ITS | Encounter Summary ---
Author Organization [employer] Address [address] [place] [address] 7 [place] [address] Care Team Providers Care Commercial Door Installer Name Role Phone Fern Morley MD Primary Care Provider + Mike Mack Unavailable Unavailable Reason for Visit * Reason Comments Med Refill Encounter Details Date Type Department Care Team ([facility] st Contact Info) Description 06/17/2023 Refill [facility] MEDICINE [address] [place], [place] [phone] Fern Morley MD [address] [place] [address] Social History Tobacco Use Types Packs/Day Years [...] Description 03/30/2025 10:00 AM EST Office Visit [facility] MED[facility]INE [address] [place] [address] Fern Morley MD [address] [place] [address] documented as of this encounter Visit Diagnoses Not on filedocumented in this encounter Additional Health Concerns Assessment Noted Time PHQ-9 Depression Total Score: 10 023 11:14 AM EST documented as of this encounter Care Teams Commercial Door Installer Relationship Specialty Start Date End Date Fern Morley MD [address] [place] [phone] PCP - General Family Medicine 06/28/20 Mike Mack FNP [address] [place] [address] Nurse Practitioner Family Medicine 04/03/23 documented as of this encounter
--- OUTSIDE RECORDS SUMMARY | 2025-02-02 13:48 | XMS_ITS | Encounter Summary ---
Author Organization [employer] Address [address] [place] [address] 7 [place] [address] Care Team Providers Care Calker Name Role Phone Fern Morley MD Primary Care Provider + Mike Mack Unavailable Unavailable Reason for Visit * Reason Comments Med Refill Encounter Details Date Type Department Care Team ([facility] st Contact Info) Description 05/08/2024 Refill [facility] MEDICINE [address] [place] [place], [place] [phone] Fern Morley MD [address] [place] [address] Primary osteoarthritis of both knees Social History [...] Description 03/30/2025 10:00 AM EST Office Visit [facility] MEDICINE [address] [place] [address] Fern Morley MD [address] [place] [address] documented as of this encounter Visit Diagnoses Diagnosis Primary osteoarthritis of both knees documented in this encounter Additional Health Concerns Assessment Noted Time PHQ-9 Depression Total Score: 6 10/01/19 24 10:52 AM EDT documented as of this encounter Care Teams Calker Relationship Specialty Start Date End Date Fern Morley MD [address] [place] [phone] PCP - General Family Medicine 06/28/20 Mike Mack FNP [address] [place] [phone] Nurse Practitioner Family Medicine 04/03/23 documented as of this encounter
--- OUTSIDE RECORDS SUMMARY | 2025-02-02 13:48 | XMS_ITS | Clinical Summary ---
Author Organization [facility] Address [address] [place] [address] Phone Care Team Providers Care Check Grader Name Role Phone Fern Morley MD Primary Care Provider + [phone] Allergies Active Allergy Reactions Criticality Noted Date Comments Amoxicillin GI intolerance 10/09/2024 Medications No known medications Active Problems No known active problems Social History Tobacco Use Types Packs/Day Years Used Date Smoking Tobacco: Every Day Cigarettes Smokeless Tobacco: Never Tobacco Cessation:Ready to Q uit: Not Asked; Counseling Given: Not Answered Comments No Sex and Gender Information Value Date Recorded Sex Assigned at Not on file Legal Sex Female 5:04 AM EST Gender Identity Not on file Sexual Orientation Not on file Obstetrics History Last Filed Vital Signs Vital Sign Reading Time Taken Comments Blood Pressure 147/83 10/09/2024 1:01 PM EDT Pulse 82 10/09/2024 1:01 PM EDT Temperature 36.6 C (97.8 F) 10/09/2024 1:01 PM EDT Respiratory Rate 18 10/09/2024 1:01 PM EDT Oxygen Saturation 99% 10/09/2024 1:01 PM EDT Inhaled Oxygen Concentration - - Weight 72.6 kg (160 lb) 10/09/2024 1:01 PM EDT Height 154.9 cm (5' 1 ) 10/09/2024 1:01 PM EDT Body Mass Index 30.23 10/09/2024 1:01 PM EDT Plan of Treatment Health Maintenance Due Date Last Done Comments Breast Cancer Screening 1972 Diabetes: Annual GFR (Glomerular Filtration Rate) 1972 Diabetes: Annual Foot Exam 1982 Diabetes: Annual Retina Eye Exam 1982 Hepatitis A Vaccines (1 of 2 - Risk 2-dose series) 08/02/1991 Hepatitis B Vaccines (1 of 3 - 19+ 3-dose series) 08/02/1991 Cholesterol Screening (Lipid Panel) 04/15/2022 Colorectal Cancer Screening: Colonoscopy 04/15/2022 Hepatitis C Screening 04/15/2022 Social Influencers of Health Screening 04/15/2022 Zoster Vaccines (1 of 2) 09/20/2022 023, 06/28/2022 Pneumococcal Vaccine: 50+ Years (2 of 2 - PCV) 01/09/2023 01/09/2022 DTaP,Tdap,and Td Vaccines (3 - Td or Tdap) 07/07/2023 07/07/2013, 07/29/2004 Depression Screening 05/13/2024 Diabetes: Annual Urine Albumin-Creatinine Ratio (uACR) 10/09/2024 Diabetes: Blood Sugar Contro l Test (HGBA1C) 10/09/2024 02/21/2024 Hypertension/CHF/CAD Annual BMP Blood Test 10/09/2024 COVID-19 Vaccine (3 - 2024-2 6 season) 2025 03/22/2021, 03/01/2021 Influenza Vaccine (#1) 2025 8, 07/07/2013 Cervical Cancer Screening: P ap Smear 06/16/2027 06/16/2024 RSV Immunization Adult Patients (1 - 1-dose 75+ series) 08/02/2047 MMR Vaccines Aged Out 07/09/2019 No longer eligi ble based on patient's age to complete this topic Varicella Vaccines Aged Out 07/26/2022, 06/28/2022 No longer eligible based on patient's age to complete this topic HIV Screening Completed 06/16/2024 HIB Vaccines Aged Out [...] to complete this topic RSV Immunization Patients Under 20 months Aged Out No longer eligible b ased on patient[place] [id number] Care Teams Check Grader Relationship Specialty Start Date End Date Fern Morley MD [address] [place] [address] [place] [phone] PCP - General Internal Medicine 10/09/24
--- OUTSIDE RECORDS SUMMARY | 2025-02-02 13:48 | XMS_ITS | Clinical Summary ---
Author Organization [employer] Address [address] [place] [address] 7 [place] [address] Care Team Providers Care Handy Man Name Role Phone Fern Morley MD Primary [...] 022 Active cholecalciferol (Vitamin D-3) 50 MCG (1999) [...] Take 1 g by mouth at bedtime. Active ARIPiprazole (Abilify) 5 MG tablet Take [...] at bedtime for sleep. 30 tablet 11 Active fluticasone (Flonase) 50 MCG/ACT nasal spray [...] AT BEDTIME FOR WHEEZING. 18 g 2 Active loratadine (Claritin) 10 MG tablet TAKE 1 TABLET BY MOUTH EVERY DAY NEEDED 90 tablet 2 Active topiramate (Topamax) 25 MG tablet Take 1 tablet (25 mg) by mouth at bedtime. 30 tablet 11 025 2025 Active senna (Senokot) 8.6 MG tablet TAKE 2 TABLETS ORALLY BEDTIME FOR FOR CONSTIPATION Active lisinopril 10 MG tabletIndications :Primary hypertension TAKE 1 TABLET BY MOUTH EVERY DAY IN THE MORNING 90 tablet 2 025 Active ibuprofen 800 MG tabletIndications :Primary osteoarthritis of both knees TAKE 1 TABLET BY MOUTH 3 TIMES A DAY (MORNING, NOON, BEDTIME) NEEDED FOR FEVER/HEADACHE/M ILD PAIN 90 tablet 3 025 Active ibuprofen 800 MG tabletIndications :Primary osteoarthritis of both knees TAKE 1 TABLET BY MOUTH 3 TIMES A DAY (MORNING, NOON, BEDTIME) NEEDED FOR FEVER/HEADACHE/M ILD PAIN 90 tablet 3 025 2024 Discontinued Active Problems Problem Noted Date Diagnosed Date [...] be referred for pelvic US or addtl FACTORY MAINTENANCE MANAGER evaluation. She understood that there may be [...] lisinopril same dose. 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 Any issues or concerns, call [facility]. All her questions were answered and [...] Encounters Date Type Department Care Team Description 02/01/2025 Telephone [facility] [address] [place] [phone] Fern Morley MD OUTREACH 01/13/2025 Refill [facility] [address] [place] [address] Fern Morley MD Primary osteoarthritis of both knees 11/24/2024 Telephone [facility] [address] [place] [phone] Fern Morley MD 11/09/2024 Orders Only [facility] External Provider, [facility] from Last 3 Months Immunizations Immunization Administration Dates Next Due Influenza injectable quadriv [...] the past 12 months, has t he Glow, gas, oil or water [employer] threatened to shut off services in your [...] 84 06/16/2024 9:19 AM EST Temperature 36.7 C (98 F) 06/16/2024 9:19 AM EST Respiratory Rate 20 [...] Description 03/30/2025 10:00 AM EST Office Visit [facility] [address] [place] [address] Fern Morley MD [address] [place], [place] [phone] Health Maintenance Due Date Last Done Comments CT Colonography 1972 FIT DNA/Cologuard 1972 FIT 1972 FOBT 1972 Sigmoidoscopy 1972 Disability Screening 1972 Alcohol/Substance Use Screening 1984 Family Planning (PISQ) 08/02/1987 Hepatitis B Vaccines (1 of 3 - 19+ 3-dose series) 08/02/1991 Zoster Vaccines (1 of 2) 09/20/2022 Pneumococcal Vaccine: 50+ Years (2 of 2 - PCV) 01/09/2023 01/09/2022 DTaP/Tdap/Td Vaccines (2 - Td or Tdap) 07/07/2023 07/07/2013, 07/29/2004 SDOH Screening 07/28/2023 07/27/2022 Diabetes: Hemoglobin A1C 08/21/2024 024, 03/11/2023, 07/27/2022, Additional history exists Depression Screening 09/30/2024 10/01/2023, 10/01/19 24 COVID-19 Vaccine ( season) 2025 03/22/2021, 03/01/2021 Influenza Vaccine (#1) 2025 01/31/2018, 2013 Diabetes: Foot Exam 06/16/2025 06/16/2024, 06/16/2024, 06/16/2024, Additional history exists Diabetes: Urine Protein Screening 06/16/2025 06/16/2024, 10/10/2021 Lipid Panel 06/16/2025 06/16/2024, 09/11, 10/06/2021, Additional history exists Tobacco Screening 09/09/2025 09/09/2024 Mammogram 07/14/2026 07/14/2024, 02/12, 03/10/2018 Eye Exam 09/09/2026 09/09/2024, 08/13, 09/09/2024, Additional history exists Cervical Cancer Screening 06/16/2029 HPV/Cotest 06/16/2029 06/16/2024, [...] Procedure Name Priority Date/Time Associated Diagnosis Comments FL UPPER GI W AIR W BARIUM SWALLOW Routine 11/09/2024 8:34 AM EDT BI MAMMOGRAM SCREENING TOMOSYNTHESIS BILATERAL Routine 07/14/2024 12:15 PM EST Screening mammogram for breast cancer HEPATITIS PANEL, GENERAL Routine 06/16/2024 10:10 AM EST Screening examination for STD (sexually transmitted disease) HIV 1/2 ANTIGEN/ANTIBODY, FOURTH GENERATION W/RFL Routine 06/16/2024 10:10 AM EST Screening examination for STD (sexually transmitted disease) ALBUMIN, RANDOM URINE W/CREATININE Routine 06/16/2024 10:10 AM EST Type 2 diabetes mellitus without complication, without long-term current use of insulin (CMS/HCC) LIPID PANEL WITH REFLEX TO DIRECT LDL Routine 06/16/2024 10:10 AM EST Type 2 diabetes mellitus without complication, without long-term current use of insulin (CMS/HCC) HPV DNA, LOW/HIGH RISK Routine 12:00 AM EST PAP SMEAR Routine 06/16/2024 12:00 AM EST Encounter for cervical Pap smear with pelvic exam POCT GLYCATED HEMOGLOBIN, TOTAL Routine 02/21/2024 9:20 AM EDT Type 2 diabetes mellitus without complication, without long-term current use of insulin ([facility]) HM COLONOSCOPY Routine 10/09/2022 from Last 3 Months or Most Recently Relevant to Health Maintenance Results * FL Upper GI w/air w/Barium Swallow (11/09/2024 8:34 AM EDT) Anatomical Region Laterality Modality Body Radiographic Gabbie ging 11/09/2024 8:34 AM EDT Narrative 11/09/2024 10:14 AM EDT [place] [address] Fluoroscopy Report Signed Patient: Blanca Lott I MR#: [id number] 6 : 1970 Acct:[id number] Age/Sex: 54 / F ADM Date: 11/09/24 Loc: ALAN Attending Dr: Nidia Paredes [facility] Ordering Physician[facility] Date of Service: 11/09/24 Procedure(s): FL upper GI w air w Ba Swallow Accession Number(s): [id number] cc: Fern Morley MD; Nidia Paredes [facility] EXAMINATION: XR UPPER GI SERIES WITH SMALL BOWEL CLINICAL INFORMATION: Gastroesophageal reflux disease COMPARISON: None available. TECHNIQUE: Routine upper GI air contrast study and barium swallow was performed in upright and lying position. FINDINGS: Following oral administration of thick barium and effervescent granules is normal propagation bolus from the oral cavity through the pharynx, esophagus into stomach without any evidence of obstruction, narrowing or stricture. No extrinsic compression seen. On placing patient supine and prone lying there increased secretions with no ulcerations or erosions visualized. There is mild gastroesophageal reflux without hiatal hernia. The course, caliber and peristalsis of the stomach, duodenal bulb and sweep is normal. FLUOROSCOPY TIME: 2 minutes and 29 seconds DOSE AREA PRODUCT: 60.71 uGy-m2 (microgray-meter squared) FL/FL upper GI w air w Ba Swallow IMPRESSION: Unremarkable upper GI air contrast study. Electronically signed by: Percy Diop MD 11/09/2024 10:09 AM EDT RP Dictated By: Percy Diop MD Signed By: <Electronically signed by Percy Diop MD in OV> 11/09/24 1009 DD/ 0834 TD/TT: 11/09/24 0900 Investment Trader: [facility] Procedure Note Donotuseinterpreter, Image - 11/09/2024 [place] [address] Fluoroscopy Report Signed Patient: Blanca Lott IMR#: [id number] 6 : 1970Acct:[id number] Age/Sex: 54 / FADM Date: 11/09/24 Loc: [facility] Attending Dr: Nidia CAI-TAZ Ordering Physician: Nidia Paredes Date of Service: 11/09/24 Procedure(s): FL upper GI w air w Ba Swallow Accession Number(s): [id number] cc: Fern Morley MD; Nidia Paredes CLINICAL CYTOGENETICS DIRECTOR-TAZ EXAMINATION: XR UPPER GI SERIES WITH SMALL BOWEL CLINICAL INFORMATION: Gastroesophageal reflux disease COMPARISON: None available. TECHNIQUE: Routine upper GI air contrast study and barium swallow was performed in upright and lying position. FINDINGS: Following oral administration of thick barium and effervescent granules is normal propagation bolus from the oral cavity through the pharynx, esophagus into stomach without any evidence of obstruction, narrowing or stricture. No extrinsic compression seen. On placing patient supine and prone lying there increased secretions with no ulcerations or erosions visualized. There is mild gastroesophageal reflux without hiatal hernia. The course, caliber and peristalsis of the stomach, duodenal bulb and sweep is normal. FLUOROSCOPY TIME: 2 minutes and 29 seconds DOSE AREA PRODUCT: 60.71 uGy-m2 (microgray-meter squared) FL/FL upper GI w air w Ba Swallow IMPRESSION: Unremarkable upper GI air contrast study. Electronically signed by: Percy Diop MD 11/09/2024 10:09 AM EDT RP Dictated By: Percy Diop MD Signed By: <Electronically signed by Percy Diop MD in OV> 11/09/24 1009 DD/ 0834 TD/TT: 11/09/24 0900 Investment Trader: [facility] External Provider IMG FLU OROSCOPY PROCEDURES Final Result * BI Mammogram Screening Tomosynthesis Bilateral (07/14/2024 12:15 PM EST) Anatomical Region Laterality Modality Breast Bilateral Mammography 07/14/2024 12:1 5 PM EST Narrative 07/16/2024 11:43 AM EST [address] [place] [address] Mammography Report Signed Patient: Blanca Lott I MR#: [id number] 6 : 1970 Acct:[id number] Age/Sex: 53 / F ADM Date: 07/14/24 Loc: HO.MAMMO Attending Dr: Fern Morley MD Ordering Physician: Fern Morley MD Results: 1Ne gative Date of Service: 07/14/24 Follow Up: 1 Year From [facility] Mammogram Procedure(s): MM tomosynthesis screening BI Accession Number(s): [id number] cc: Fern Morley MD EXAMINATION: MM SCREENING [...] 07/16/24 1140 DD/ 1215 TD/TT: 07/14/24 1215 Investment Trader: Procedure Note Donotuseinterpreter, Image - 07/16/2024 [facility] [address] [place] [address] Mammography Report Signed Patient: Blanca Lott IMR#: [id number] 6 : 1970Acct:[id number] Age/Sex: 53 / FADM Date: 07/14/24 Loc: HO.MAMMO Attending Dr: Fern Morley MD Ordering Physician: Fern Morley MDResults: 1Ne gative Date of Service: 07/14/24Follow Up: 1 Year From Orig inal Mammogram Procedure(s): MM tomosynthesis screening BI Accession Number(s): [id number] cc: Fern Morley MD EXAMINATION: MM SCREENING [...] 07/16/24 1140 DD/ 1215 TD/TT: 07/14/24 1215 Investment Trader: us Fern Morley MD IMG BI PROCEDURES Final Result * (ABNORMAL) Lipid Panel with Reflex to Direct LDL (06/16/2024 10:10 AM EST) Triglycerides 90 <150 mg/dL [facility] Comment:Desirable Triglyceri de: less than 150 mg/dLBorderline High Triglyceride 150-199 mg/dLHigh Triglyceride: 200-499 mg/dLVery High Triglyceride: greater than or equal to 5OO mg/dL Cholesterol 183 <200 mg/dL [facility] Comment:Desirable Cholestero l: less than 200 mg/dLBorderline High Cholesterol: 200-239 mg/dLHigh Cholesterol: greater than 239 mg/dL LDL Cholesterol Calculated 112(H) <100 mg/dL [facility] Comment:Desirable LDL: less than 100 mg/dLNear Optimal/Above Optimal LDL: 110- 129 mg/dLBorderline High LDL: 130-159 mg/dLHigh LDL: 160-189 mg/dLVery High LDL: greater than or equal to 190 mg/dL HDL Cholesterol 53 >40 mg/dL [facility] Comment:Desirable HDL: great er than 40 mg/dL Note: This HDL assay may give artificially low results in patients with liver disease. Blood 06/16/2024 10:1 0 AM EST 06/16/2024 11:24 AM EST Fern Morley MD LAB BLOOD ORDERABLES Fin al Result [facility] [address] [place] [phone] * Hepatitis Panel, General (06/16/2024 10:10 AM EST) Hepatitis A IgM Nonreactive Nonreactive [facility] Comment:IgM antibodies to VELASQUEZ V not detected; does not exclude earlyacute or recovered HAV infection. ~Hepatitis B Surface Antibody REACTIVE Nonreactive [facility] Comment:REACTIVE: > 11.99 mI U/mL Hepatitis B Core Antibody Nonreactive Nonreactive [facility] Hepatitis C Antibody Nonreactive Nonreactive [facility] Comment:Antibodies to HCV no t detected; does not exclude early acuteHCV infection. Hepatitis B Surface Ag Negative Negative [facility] Blood 06/16/2024 10:1 0 AM EST 06/16/2024 11:24 AM EST Fern Morley MD LAB BLOOD ORDERABLES Fin al Result Performing Organization Address [facility] Co de Phone Number [facility] [address] [place] [phone] * Albumin, Random Urine W/Creatinine (06/16/2024 10:10 AM EST) Creatinine, Urine 246.37 mg/dL [facility] Microalbumin Urine 10.0 mg/L [facility] Microalbum Creatinine Ratio Ur 4.0 <30 ug/mg cr [facility] Comment:Albumin/Creatinine R atio Reference Ranges: Normal: < 30 ug/mg creatinine Microalbuminuria: 30 - 300 ug/mg creatinineClinical Albuminuria: > 300 ug/mg creatinine Urine (Urine, Random) 06/16/2024 10:10 AM EST 06/16/2024 11:18 AM EST Fern Morley MD LAB URINE ORDERABLES Fin al Result Performing Organization Address [facility]/ZIP Co de Phone Number [facility] [address] [place] [phone] * HIV-1/2 Antigen and Antibodies, Fourth Generation, with Reflexes (06/16/2024 10:10 AM EST) HIV AB/AG Nonreactive Nonreactive [facility] Comment:HIV-1 p24 Ag and/or HIV-1/HIV-2 Ab not detected.A test result that is nonreactive does not exclude thepossibility of exposure to or infection with HIV-1 and/orHIV-2. Nonreactive results in this assay for individualswith prior exposure to HIV-1 and/or HIV-2 may be due toantigen and antibody levels that are below the limit ofdetection of this assay.The [employer] HIV Ag/Ab Combo assay result andsupplemental assay results should be interpreted inconjunction with the patient's clinical presentation,history and other laboratory results. If the results areinconsistent with clinical evidence, additional testing issuggested to confirm the result. Blood Venous blood specimen / Unknown 06/16/2024 10:10 AM EST 06/16/2024 11:24 AM EST us Fern Morley MD LAB BLOOD ORDERABLES Fin al Result [facility] [address] [place] [phone] * HPV DNA, Low/High Risk (06/16/2024 12:00 AM EST) HPV High Risk Negative Negative [facility] HPV Genotype 16 Negative Negative [facility] HPV Genotype 18 Negative Negative [facility] Comment:HPV testing performe d at [facility] (CLIA#[id number]), [address] [place] [address].Testing for HPV was performed using the [employer] [...] MD LAB BLOOD ORDERABLES Fin al Result [facility] [address] [place] [phone] * Pap Smear (06/16/2024 12:00 AM EST) Swab Cervical swab / Unknown 06/16/2024 06/17/2024 9:15 AM EST Narrative [facility] - 06/25/2024 1:12 PM EST ----- ------- Name: Blanca Lott I Age/Sex: 53/F : 1970 Unit#: [id number] Attend Dr: Fern Morley MD Re06/16/24 Status: [facility] Location: [facility] Disch: ----- ------- SPEC : [id number] RECD: 06/17/24 STATUS: JACEY ROMERO NUM: [id number] MEILY: 06/16/24-[address]: Fern Morley MD ENTERED: 06/17/24 SP TYPE: Pap [facility] : ORDERED: Pap Smear Interpretation Satisfactory for evaluation. Negative for intraepithelial lesion or malignancy. No endocervical cells seen. HPV High Risk: Negative HPV Genotyping 16: Negative HPV Genotyping 18: Negative Clinical Information LMP: Postmenopausal Previous PAP test: 2020, WNL Other history: Pos HPV on 2016 Material Received ThinPrep-Cervical ----- ------- Signed (signature on file) MARTELL Leal (ASCP) 06/25/24 1312 ----- ------- END OF REPORT Fern Morley MD LAB CYTOLOGY ORDERABLES Final Result [facility] [address] [place] [phone] * (ABNORMAL) POCT HGB A1C (02/21/2024 9:20 AM EDT) Hemoglobin A1C 6.1(A) 4.0 - 6.0 % QC Media Lot # [id number] Lot# Expiration Date Blood 02/21/2024 9:20 AM EDT Fern Morley MD POINT OF CARE TEST ENTER /EDIT ORDERABLES Final Result * Colonoscopy (10/09/2022) Colonoscopy Normal Normal [facility] 10/09/2022 Fern Morley MD HEALTH MAINTENANCE Final Result [facility] [address] [place] [phone] from Last 3 Months or Most Recently Relevant to Health Maintenance Insurance [facility] Care Teams Handy Man Relationship Specialty Start Date End Date Fern Morley MD [address] [place] [address] PCP - General Family Medicine 06/28/20 Mike Mack FNP [address] [place] [phone] Nurse Practitioner Family Medicine 04/03/23
== END 2025-02-02 11:45 | disposition home or self-care (01) ==
PROVIDERS: Family Provider Internal Medicine; Visit Provider Nurse Practitioner Family
DX: Z91.018 Allergy to other foods (principal); K21.9 Gastro-esophageal reflux disease without esophagitis; K59.01 Slow transit constipation; R68.81 Early satiety; R43.2 Parageusia
CPT/HCPCS: 99214; G2211